=== PATIENT | male | born 1970 | race Caucasian/White ===

== ENCOUNTER 2017-01-01 07:47 | Inpatient (IN) | payer BC ==
[2017-01-01] MEDS ORDERED: DEXTROSE 50%-WATER 25 GM/50 ML DISP.SYRIN ONE (08:12)
--- NOTE | 2017-01-01 08:18 | PDOC ---
History of Present Illness - General Chief Complaint: Blood Sugar Problem Stated Complaint: DIABETIC Time Seen by Provider: 01/01/17 08:07 History Source: Patient, EMS Exam Limitations: No Limitations, Clinical Condition - History of Present Illness Initial Comments: 01/01/17 08:16 Patient is a 46M with a PMH of DM who was found down at a gas station and brought in by EMS. BG was 19. He was administered 1 amp of D50. BG went to 130. In the ED he became diaphoretic again and was found to have a BG of 50. Another amp of D50 given. He states he is lightheaded. Denies CP, SOB, numbness, tingling, weakness. Patient takes 2 types of insulin and did not have breakfast in the morning. He does not remember the last time this has happened. Past History - Past Medical History Allergies/Adverse Reactions: Allergies Allergy/AdvReac Type Severity Reaction Status Date / Time No Known Allergies Allergy Verified 01/01/17 08:06 Home Medications: Ambulatory Orders Insulin Glargine,Hum.rec.anlog [Toujeo Solostar] 30 unit SQ AM 01/01/17 Insulin Lispro Protamin/Lispro [Humalog Mix 50-50 Kwikpen] 0 unit SQ BID Diabetes: Yes - Suicide/Smoking/Psychosocial Hx Smoking History: Never smoked Have you smoked in the past 12 months: No Information on smoking cessation initiated: No Hx Alcohol Use: No Drug/Substance Use Hx: No Substance Use Type: None Hx Substance Use Treatment: No Review of Systems - Review of Systems Able to Perform ROS?: Yes Is the patient limited Chinese proficient: No Constitutional: Yes: Diaphoresis. No: Chills, Fever Respiratory: No: Shortness of Breath Cardiac (ROS): Yes: Lightheadedness. No: Chest Pain ABD/GI: No: Constipated, Diarrhea, Nausea, Vomiting : No: Burning, Dysuria, Discharge Neurological: No: Headache, Numbness, Tingling, Weakness *Physical Exam - Vital Signs Last Vital Signs Temp Pulse Resp BP Pulse Ox 67 18 154/99 100 01/01/17 07:50 01/01/17 07:50 01/01/17 07:50 01/01/17 07:50 - Physical Exam General Appearance: Yes: Nourished, Appropriately Dressed, Other (Initially disoriented, after reassessment he is A&Ox3). No: Apparent Distress HEENT: positive: Normal Voice, Hearing Grossly Normal Respiratory/Chest: positive: Lungs Clear, Normal Breath Sounds. negative: Chest Tender, Accessory Muscle Use, Labored Respiration, Crackles, Rales, Rhonchi, Stridor, Wheezing Cardiovascular: positive: Regular Rhythm, Regular Rate, S1, S2. negative: Diastolic Murmur, Systolic Murmur Gastrointestinal/Abdominal: positive: Flat, Soft. negative: Tender, Distended, Guarding, Rebound, Tenderness Extremity: negative: Pelvis Stable, Swelling, Calf Tenderness Integumentary: positive: Warm, Diaphoresis Neurologic: positive: Fully Oriented, Alert, Normal Mood/Affect, Motor Strength 5/5 Heart Score/ECG Review - ECG Impressions Comment:: 01/01/17 09:01 Rate 67 NSR ED Treatment Course - LABORATORY CBC & Chemistry Diagram: 01/01/17 09:11 01/01/17 09:11 Medical Decision Making - Medical Decision Making 01/01/17 09:02 Patient is a 46M with a PMH of DM who presented to the ED after a hypoglycemic episode. He is currently stable but routine monitoring of his BG will be continued. Septic protocol is being followed secondary to mild hypothermia (93F) . Will reassess when labs return. 01/01/17 10:29 I have spoken with Dr. Pizarro and he recommends ICU admission. I have placed these orders and paged intensivists. 01/01/17 11:30 I have spoken with Dr. Bell, ICU, who states that the patient can also go to a med/surg bed if temp does not return to normal. I will recheck temp at noon and reassess patient. 01/01/17 11:39 Temp recheck is 93.4. *DC/Admit/Observation/Transfer Diagnosis at time of Disposition: Hypoglycemia associated with diabetes - Discharge Dispostion Condition at time of disposition: Stable Admit: Yes - Referrals
--- NOTE | 2017-01-01 08:49 | PDOC ---
Attending Attestation - [facility] HPI: 01/01/17 09:31 The patient is a 46 year old male, with a significant past medical history of insulin dependent diabetes, who presents to the emergency department via ems s/ p syncope this morning. The patient states he woke up at 5am and normally picks up breakfast before work, however, states he was unable to this morning because his car broke down. 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 As per ems, he was given D50 prior to ED arrival. The patient reports not recording his glucose this morning, but feeling very hungry. He states he took 8 units, opposed to his regular 30 units, of his long lasting medication and 12 units of his humalog before leaving his house for work. He states his "sugars last week were between 200 and 500." He denies chest pain, shortness of breath, headache and dizziness. He denies fever, chills, nausea, vomit, diarrhea and constipation. He denies dysuria, frequency, urgency and hematuria. Allergies: NKDA Past surgical history: none reported PCP - Dr. Ramirez - Physicial Exam PE: 01/01/17 09:34 GENERAL: Awake, alert, and fully oriented, in no acute distress HEAD: No signs of trauma EYES: PERRLA, EOMI, sclera anicteric, conjunctiva clear ENT: Auricles normal inspection, hearing grossly normal, nares patent, oropharynx clear without exudates. Moist mucosa NECK: Normal ROM, supple, no lymphadenopathy, JVD, or masses LUNGS: Breath sounds equal, clear to auscultation bilaterally. No wheezes, and no crackles HEART: Regular rate and rhythm, normal S1 and S2, no murmurs, rubs or gallops ABDOMEN: Soft, nontender, normoactive bowel sounds. No guarding, no rebound. No masses EXTREMITIES: Normal range of motion, no edema. No clubbing or cyanosis. No cords , erythema, or tenderness NEUROLOGICAL: Cranial nerves II-XII intact. Normal speech, normal gait. Sensation intact in upper and lower extremities. 5/5 motor strength in upper and lower extremities. No pronator drift. Finger to nose intact. Rapid alternations intact. SKIN: Warm, Dry, normal turgor, no rashes or lesions noted. - Medical Decision Making 01/01/17 09:36 Documentation prepared by Dilcia Schaffer, acting as director biomedical engineering for Antony Adair MD, 01/01/17 10:16 Dr. Pizarro was paged at the office requesting for doctor to doctor consult regarding admission of this patient. Dr. Matias, EM Resident, discussed the patient's case with Dr. Pizarro at 10:26 01/01/17 10:32 Dr. Bell was paged overhead requesting a callback to [phone] <Dilcia Schaffer - Last Filed: 01/01/17 10:32> - Critical Care Time Total Critical Care Time: 30 Critical Care Statement: The care of this patient involved high complexity decision making to prevent further life threatening deterioration of the patient 's condition and/or to evaluate & treat vital organ system(s) failure or risk of failure. - Medical Decision Making 01/01/17 12:02 Documentation prepared by Hallie Lewis, acting as director biomedical engineering for Antony Adair MD. <Hallie Lewis - Last Filed: 01/01/17 12:02> - Resident Resident Name: Sheldon Matias - ED Attending Attestation I have performed the following: I have examined & evaluated the patient, The case was reviewed & discussed with the resident, I agree w/resident's findings & plan, Exceptions are as noted - Medical Decision Making 01/01/17 10:21 Vital Signs Temp Pulse Resp BP Pulse Ox 67 18 154/99 100 01/01/17 07:50 01/01/17 07:50 01/01/17 07:50 01/01/17 07:50 46-year-old male with history of insulin-dependent diabetes presents with hypoglycemia and hypothermia. The patient was going to work and had taken his insulin this morning. Patient states that he had taken 8 units of long-lasting insulin and 12 units of Humalog. He reports that he ate very little and subsequently lost consciousness. EMS was found and noted that he was sweaty and fingerstick of 19. Was given an amp of dextrose and oral glucose. Patient was noted to be hypothermic at 93. He denies any recent illnesses. His last regimen insulin change was 2 weeks ago. Patient's glucose is improved though given hypothermia and hypoglycemia, we'll need to admit the patient for observation. I suspect that the hypothermia is secondary to hypoglycemia, however, will need a sepsis workup. CBC, BMP 01/01/17 09:11 01/01/17 09:11 CMP Sodium 138 mmol/L (136-145) 01/01/17 09:11 Potassium 4.3 mmol/L (3.5-5.1) 01/01/17 09:11 Chloride 104 mmol/L (98-107) 01/01/17 09:11 Carbon Dioxide 29 mmol/L (21-32) 01/01/17 09:11 Anion Gap 5 (8-16) L 01/01/17 09:11 BUN 20 mg/dL (7-18) H 01/01/17 09:11 Creatinine 1.0 mg/dL (0.7-1.3) 01/01/17 09:11 Creat Clearance w eGFR > 60 (>60) 01/01/17 09:11 POC Glucometer 50.17161 UNITS (()) 01/01/17 08:09 Random Glucose 111 mg/dL (74-106) H 01/01/17 09:11 Lactic Acid 1.1 mmol/L (0.4-2.0) 01/01/17 09:11 Calcium 8.5 mg/dL (8.5-10.1) 01/01/17 09:11 Phosphorus 4.2 mg/dL (2.5-4.9) 01/01/17 09:11 Magnesium 2.2 mg/dL (1.8-2.4) 01/01/17 09:11 Total Bilirubin 0.4 mg/dL (0.2-1.0) 01/01/17 09:11 AST 24 U/L (15-37) 01/01/17 09:11 ALT 33 U/L (12-78) 01/01/17 09:11 Alkaline Phosphatase 80 U/L (45-117) 01/01/17 09:11 Creatine Kinase 393 IU/L (39-308) H 01/01/17 09:11 Creatine Kinase Index 3.0 % (0.0-5.0) 01/01/17 09:11 CK-MB (CK-2) 11.955 ng/mL (0.5-3.6) H 01/01/17 09:11 Troponin I < 0.02 ng/ml (0.00-0.05) 01/01/17 09:11 Total Protein 5.7 g/dl (6.4-8.2) L 01/01/17 09:11 Albumin 2.4 g/dl (3.4-5.0) L 01/01/17 09:11 01/01/17 15:05 Pt has no cardiac arrhythmias on ECG. Case discussed with Dr. Vick Mirza. Patient can be admitted to med/surg admission. <Antony Adair - Last Filed: 01/01/17 15:06> Heart Score/ECG Review #1 ECG reviewed & interpreted by me at: 08:00 01/01/17 10:22 NSR 67, no std/nacho, normal axis, normal intervals, QTC 456 msec. No J waves <Antony Adair - Last Filed: 01/01/17 15:06>
[2017-01-01 09:26] LABS: BASOPHIL 0.8 % (0-2.0); EOSINOPHIL 3.5 % (0-4.5); MCH 29.7 pg (25.7-33.7); MCHC 33.4 g/dl (32.0-35.9); MEAN CELL VOLUME 89.1 fl (80-96); MEAN PLT VOLUME 6.6 fl (7.5-11.1); NEUTROPHILS 60.4 % (42.8-82.8); PLATELET COUNT 218 K/MM3 (134-434); RDW 12.7 % (11.9-15.9); WHITE BLOOD COUNT 5.4 K/mm3 (4.0-10.0)
[2017-01-01 09:46] LABS: ALBUMIN 2.4 g/dl (3.4-5.0); ANION GAP 5 (8-16); BILIRUBIN,TOTAL 0.4 mg/dL (0.2-1.0); CALCIUM 8.5 mg/dL (8.5-10.1); CO2 29 mmol/L (21-32); GLUCOSE,RANDOM 111 mg/dL (74-106); MAGNESIUM 2.2 mg/dL (1.8-2.4); PHOSPHOROUS 4.2 mg/dL (2.5-4.9); SGOT/AST 24 U/L (15-37); SGPT/ALT 33 U/L (12-78); TOT PROT 5.7 g/dl (6.4-8.2)
[2017-01-01 09:48] LABS: ALK PHOS 80 U/L (45-117); CPK 393 IU/L (39-308); TROPONIN I < 0.02 ng/ml (0.00-0.05)
--- NOTE | 2017-01-01 10:25 | EKG ---
Test Reason : Blood Pressure : / mmHG Vent. Rate : 067 BPM Atrial Rate : 067 BPM P-R Int : 150 ms QRS Dur : 090 ms QT Int : 432 ms P-R-T Axes : 053 048 046 degrees QTc Int : 456 ms NORMAL SINUS RHYTHM NORMAL ECG WHEN COMPARED WITH ECG OF 25-JUN-2007 00:48, NO SIGNIFICANT CHANGE WAS FOUND Confirmed by DESIRAE AUGUST MD ([id number]) on 01/01/2017 10:25:19 AM Referred By: Confirmed By:DESIRAE AUGUST MD
[2017-01-01 15:16] LABS: URINE APPEARANCE CLEAR; URINE BILIRUBIN NEGATIVE (NEGATIVE); URINE BLOOD 1+ (NEGATIVE); URINE COLOR LTYELLOW; URINE GLUCOSE (UA) 2+ (NEGATIVE); URINE KETONE NEGATIVE (NEGATIVE); URINE LEUK ESTERASE NEGATIVE (NEGATIVE); URINE NITRITE NEGATIVE (NEGATIVE); URINE UROBILINOGEN NEGATIVE mg/dL (0.2-1.0)
[2017-01-01 15:20] LABS: URINE BACTERIA RARE /hpf (NONE SEEN); URINE MUCUS RARE; URINE PROTEIN 2+ (NEGATIVE); URINE RBC 5 /hpf (0-3); URINE WBC 1 /hpf (3-5)
[2017-01-01 16:40] VITALS: BMI 26.4
--- NOTE | 2017-01-01 16:42 | HP ---
Admitting History and Physical - Primary Care Physician PCP: Franklyn Ramirez (Juareziyamarylou) - Admission Chief Complaint: Hypoglycemia History of Present Illness: Mr. Gonsales, a pleasant 46 yo male came in to [facility] ER after he went unconscious at his job due to hypoglycemia. He woke up in AM, took his insulin, humalog and Toujeo, his usual dose, went to his car to get some breakfast before work, realized the car wasn't working. So he took a cab straight to his work because he was running late, instead of getting breakfast. 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 But before he could get breakfast, he went unconscious, 911 was called at the scene and he was brought in to the ER. History Source: Patient Limitations to Obtaining History: No Limitations - Past Medical History Endocrine: Yes: Diabetes Mellitus - Smoking History Smoking history: Never smoked Have you smoked in the past 12 months: No - Alcohol/Substance Use Hx Alcohol Use: No Home Medications - Allergies Allergies/Adverse Reactions: Allergies Allergy/AdvReac Type Severity Reaction Status Date / Time No Known Allergies Allergy Verified 01/01/17 08:06 - Home Medications Home Medications: Ambulatory Orders Insulin Glargine,Hum.rec.anlog [Toujeo Solostar] 30 unit SQ AM 01/01/17 Amlodipine Besylate [Norvasc -] 5 mg PO DAILY #30 tablet 01/03/17 Insulin Sliding Scale [Novolog Vial Sliding Scale -] 1 vial SQ ACHS units 01/03 Lisinopril [Prinivil] 20 mg PO DAILY #30 tablet 01/03/17 Review of Systems - Review of Systems Constitutional: reports: No Symptoms Eyes: reports: No Symptoms HENT: reports: No Symptoms Neck: reports: No Symptoms Cardiovascular: reports: No Symptoms Respiratory: reports: No Symptoms Gastrointestinal: reports: No Symptoms Genitourinary: reports: No Symptoms Breasts: reports: No Symptoms Reported Musculoskeletal: reports: No Symptoms Integumentary: reports: No Symptoms Neurological: reports: Syncope Endocrine: reports: No Symptoms Hematology/Lymphatic: reports: No Symptoms Psychiatric: reports: No Symptoms Pain Intensity: 0 Physical Examination Vital Signs: Vital Signs Temperature 97.5 F L 01/01/17 15:58 Pulse Rate 90 01/01/17 10:30 Respiratory Rate 18 01/01/17 10:30 Blood Pressure 189/119 01/01/17 10:30 O2 Sat by Pulse Oximetry (%) 100 01/01/17 07:50 Constitutional: Yes: Well Nourished, No Distress, Calm Cardiovascular: Yes: Regular Rate and Rhythm Respiratory: Yes: Regular Gastrointestinal: Yes: Normal Bowel Sounds Musculoskeletal: Yes: WNL Extremities: Yes: WNL Edema: No Peripheral Pulses WNL: Yes Neurological: Yes: Alert, Oriented Psychiatric: Yes: Alert, Oriented Problem List - Problems (1) Diabetes mellitus, insulin dependent (IDDM), uncontrolled Assessment/Plan: -labs -check A1c -endocrine consult Code(s): E10.65 - TYPE 1 DIABETES MELLITUS WITH HYPERGLYCEMIA (2) HTN (hypertension) Assessment/Plan: -states he was started on BP medication outpatient but he never took it. Code(s): I10 - ESSENTIAL (PRIMARY) HYPERTENSION (3) Hypoglycemia associated with diabetes Assessment/Plan: uncontrolled DM2 A1C at 13.1 awaiting endocrinology consult Code(s): E11.649 - TYPE 2 DIABETES MELLITUS WITH HYPOGLYCEMIA WITHOUT COMA Assessment/Plan see problem list
[2017-01-01] MEDS ORDERED: FLU VACCINE QUAD 60 MCG/0.5 ML (MDV 17-18) IM ONE (16:57)
[2017-01-01] MEDS: LISINOPRIL 5 MG TABLET (FP) PO SCH (16:58)
[2017-01-01] MEDS: INSULIN SLIDING SCALE (NOVOLOG) 1 VIAL SQ SCH ×2 (18:05→21:20)
[2017-01-01] MEDS ORDERED: METOPROLOL TARTRATE 25 MG TABLET (FP) PO ONE (19:15)
[2017-01-01] MEDS: HEPARIN NA (PORCINE) 5,000 UNITS/ML 1ML VIAL SQ SCH (21:27)
[2017-01-02] MEDS: INSULIN SLIDING SCALE (NOVOLOG) 1 VIAL SQ SCH ×4 (06:07→22:01)
[2017-01-02 07:51] LABS: BASOPHIL 0.7 % (0-2.0); EOSINOPHIL 3.6 % (0-4.5); MCH 30.1 pg (25.7-33.7); MCHC 33.6 g/dl (32.0-35.9); MEAN CELL VOLUME 89.6 fl (80-96); MEAN PLT VOLUME 6.9 fl (7.5-11.1); NEUTROPHILS 65.3 % (42.8-82.8); PLATELET COUNT 239 K/MM3 (134-434); RDW 12.7 % (11.9-15.9); WHITE BLOOD COUNT 6.3 K/mm3 (4.0-10.0)
[2017-01-02 08:49] LABS: ALBUMIN 2.4 g/dl (3.4-5.0); ALK PHOS 87 U/L (45-117); ANION GAP 9 (8-16); BILIRUBIN,TOTAL 0.5 mg/dL (0.2-1.0); CALCIUM 7.9 mg/dL (8.5-10.1); CO2 29 mmol/L (21-32); CREATININE 1.1 mg/dL (0.7-1.3); GLUCOSE,RANDOM 208 mg/dL (74-106); SGOT/AST 23 U/L (15-37); SGPT/ALT 33 U/L (12-78); TOT PROT 5.7 g/dl (6.4-8.2)
[2017-01-02] MEDS: HEPARIN NA (PORCINE) 5,000 UNITS/ML 1ML VIAL SQ SCH ×2 (09:17→22:01)
[2017-01-02] MEDS: LISINOPRIL 5 MG TABLET (FP) PO SCH (09:17)
--- NOTE | 2017-01-02 10:39 | PN ---
Progress Note, Physician Chief Complaint: Hypoglycemia, HTN History of Present Illness: NAD, sitting at the edge of the bed, feeling much better, awaiting endocrinology and cardiology consult. - Current Medication List Current Medications: Active Medications Heparin Sodium (Porcine) (Heparin -) 5,000 unit SQ BID [facility] Last Admin: 01/02/17 09:17 Dose: 5,000 unit Insulin Aspart (Novolog Vial Sliding Scale -) 1 vial SQ ACHS [facility] PRN Reason: Protocol Last Admin: 01/02/17 06:07 Dose: Not Given Lisinopril (Prinivil) 5 mg PO DAILY [facility] Last Admin: 01/02/17 09:17 Dose: 5 mg - Objective Vital Signs: Vital Signs Temperature 97.9 F 01/02/17 09:30 Pulse Rate 80 01/02/17 10:33 Respiratory Rate 18 01/02/17 10:33 Blood Pressure 124/84 01/02/17 10:33 O2 Sat by Pulse Oximetry (%) 98 01/02/17 00:09 Constitutional: Yes: Well Nourished, No Distress, Calm Cardiovascular: Yes: Regular Rate and Rhythm Respiratory: Yes: Regular Gastrointestinal: Yes: Normal Bowel Sounds Musculoskeletal: Yes: WNL Extremities: Yes: WNL Edema: No Peripheral Pulses WNL: Yes Neurological: Yes: Alert, Oriented Psychiatric: Yes: Alert, Oriented Labs: CBC, BMP 01/02/17 06:30 01/02/17 06:30 Problem List - Problems (1) Hypoglycemia associated with diabetes Assessment/Plan: uncontrolled DM2 A1C at 13.1 awaiting endocrinology consult Code(s): E11.649 - TYPE 2 DIABETES MELLITUS WITH HYPOGLYCEMIA WITHOUT COMA (2) HTN (hypertension) Assessment/Plan: -started on Lisinopril 5 mg yesterday, was also given 1 dose of metoprolol 25 mg -BP better today -awaiting cardiology consult Code(s): I10 - ESSENTIAL (PRIMARY) HYPERTENSION (3) Anemia Assessment/Plan: -Could be secondary to DM -iron profile, vit b 12 pending -would treat as per cause -stool OB Code(s): D64.9 - ANEMIA, UNSPECIFIED Assessment/Plan see problem list
[2017-01-02] MEDS ORDERED: INSULIN (NOVOLOG) ASPART 100 UNITS/ML 10ML VIAL ONE (10:58)
[2017-01-02 12:52] LABS: FERRITIN 298.217 ng/ml (16.4-293.9)
--- NOTE | 2017-01-02 14:28 | CONSULT ---
Consult Consult Specialty:: endocrine Referred by:: grant soria np Reason for Consultation:: hypoglycemia/iddm - History of Present Illness Chief Complaint: low sugar not checking sugar before taking insulin passed out History of Present Illness: 46M with a PMH of DM who was found down at a gas station and brought in by EMS. BG was 19. He was administered 1 amp of D50. BG went to 130. In the ED he became diaphoretic again and was found to have a BG of 50. Another amp of D50 given. He states he is lightheaded. Denies CP, SOB, numbness, tingling, weakness. Patient takes 2 types of insulin and did not have breakfast in the morning. He does not remember the last time this has happened. has had last hb a1c 14%,took humalog 14 units and toujeo 12units,yet did not check sugar , passed out and found sugar to be 50mg/dl ambulance brought to er,denies cp sob cough or fever - History Source History Provided By: Patient - Past Medical History Endocrine: Yes: Diabetes Mellitus - Alcohol/Substance Use Hx Alcohol Use: No - Smoking History Smoking history: Never smoked Have you smoked in the past 12 months: No Home Medications - Allergies Allergies/Adverse Reactions: Allergies Allergy/AdvReac Type Severity Reaction Status Date / Time No Known Allergies Allergy Verified 01/01/17 08:06 - Home Medications Home Medications: Ambulatory Orders Insulin Glargine,Hum.rec.anlog [Toujeo Solostar] 30 unit SQ AM 01/01/17 Insulin Lispro Protamin/Lispro [Humalog Mix 50-50 Kwikpen] 0 unit SQ BID Review of Systems - Review of Systems Constitutional: reports: No Symptoms Eyes: reports: No Symptoms HENT: reports: No Symptoms Neck: reports: No Symptoms Cardiovascular: reports: No Symptoms Respiratory: reports: No Symptoms Gastrointestinal: reports: No Symptoms Genitourinary: reports: No Symptoms Breasts: reports: No Symptoms Reported Musculoskeletal: reports: No Symptoms Integumentary: reports: No Symptoms Neurological: reports: Weakness Endocrine: reports: Unexplained Weight Loss Hematology/Lymphatic: reports: No Symptoms Psychiatric: reports: No Symptoms Physical Exam Vital Signs: Vital Signs Temperature 97.9 F 01/02/17 09:30 Pulse Rate 80 01/02/17 10:33 Respiratory Rate 18 01/02/17 10:33 Blood Pressure 124/84 01/02/17 10:33 O2 Sat by Pulse Oximetry (%) 97 01/02/17 08:00 Constitutional: Yes: Calm Eyes: Yes: WNL HENT: Yes: WNL Neck: Yes: WNL Cardiovascular: Yes: WNL Respiratory: Yes: CTA Bilaterally Gastrointestinal: Yes: Normal Bowel Sounds Renal/: Yes: WNL Breast(s): Yes: WNL Labs: CBC, BMP 01/02/17 06:30 01/02/17 06:30 Problem List - Problems (1) HTN (hypertension) Code(s): I10 - ESSENTIAL (PRIMARY) HYPERTENSION (2) Hypoglycemia associated with diabetes Code(s): E11.649 - TYPE 2 DIABETES MELLITUS WITH HYPOGLYCEMIA WITHOUT COMA (3) Diabetes mellitus, insulin dependent (IDDM), uncontrolled Code(s): E10.65 - TYPE 1 DIABETES MELLITUS WITH HYPERGLYCEMIA Assessment/Plan Current Active Problems Anemia (Acute) HTN (hypertension) (Acute) Hypoglycemia associated with diabetes (Acute) Abnormal Lab Results 01/01/17 01/02/17 01/02/17 15:05 06:30 06:30 RBC 3.82 L Hgb 11.5 L Hct 34.2 L MPV 6.9 L BUN 28 H D Random Glucose 208 H D Hemoglobin A1c % Calcium 7.9 L Ferritin Total Protein 5.7 L Albumin 2.4 L Urine Protein 2+ H Urine Glucose (UA) 2+ H Urine Blood 1+ H 01/02/17 01/02/17 06:30 06:30 RBC Hgb Hct MPV BUN Random Glucose Hemoglobin A1c % 13.1 H D Calcium Ferritin 298.217 H Total Protein Albumin Urine Protein Urine Glucose (UA) Urine Blood Laboratory Results - last 24 hr 01/01/17 01/01/17 01/01/17 15:05 17:58 21:19 WBC RBC Hgb Hct MCV MCH MCHC RDW Plt Count MPV Neutrophils % Lymphocytes % Monocytes % Eosinophils % Basophils % Sodium Potassium Chloride Carbon Dioxide Anion Gap BUN Creatinine Creat Clearance w eGFR POC Glucometer 293 316 Random Glucose Hemoglobin A1c % Calcium Ferritin Total Bilirubin AST ALT Alkaline Phosphatase Total Protein Albumin Urine Color Ltyellow Urine Appearance Clear Urine pH 6.0 Ur Specific [place] 1.025 Urine Protein 2+ H Urine Glucose (UA) 2+ H Urine Ketones Negative Urine Blood 1+ H Urine Nitrite Negative Urine Bilirubin Negative Urine Urobilinogen Negative Urine RBC 5 Urine WBC 1 Urine Bacteria Rare Urine Mucus Rare 01/02/17 01/02/17 01/02/17 06:05 06:30 06:30 WBC 6.3 RBC 3.82 L Hgb 11.5 L Hct 34.2 L MCV 89.6 MCH 30.1 MCHC 33.6 RDW 12.7 Plt Count 239 MPV 6.9 L Neutrophils % 65.3 Lymphocytes % 23.7 Monocytes % 6.7 Eosinophils % 3.6 Basophils % 0.7 Sodium 138 Potassium 4.7 Chloride 100 Carbon Dioxide 29 Anion Gap 9 BUN 28 H D Creatinine 1.1 Creat Clearance w eGFR > 60 POC Glucometer 193 Random Glucose 208 H D Hemoglobin A1c % Calcium 7.9 L Ferritin Total Bilirubin 0.5 D AST 23 ALT 33 Alkaline Phosphatase 87 Total Protein 5.7 L Albumin 2.4 L Urine Color Urine Appearance Urine pH Ur Specific [place] Urine Protein Urine Glucose (UA) Urine Ketones Urine Blood Urine Nitrite Urine Bilirubin Urine Urobilinogen Urine RBC Urine WBC Urine Bacteria Urine Mucus 01/02/17 01/02/17 01/02/17 06:30 06:30 10:55 WBC RBC Hgb Hct MCV MCH MCHC RDW Plt Count MPV Neutrophils % Lymphocytes % Monocytes % Eosinophils % Basophils % Sodium Potassium Chloride Carbon Dioxide Anion Gap BUN Creatinine Creat Clearance w eGFR POC Glucometer 235 Random Glucose Hemoglobin A1c % 13.1 H D Calcium Ferritin 298.217 H Total Bilirubin AST ALT Alkaline Phosphatase Total Protein Albumin Urine Color Urine Appearance Urine pH Ur Specific [place] Urine Protein Urine Glucose (UA) Urine Ketones Urine Blood Urine Nitrite Urine Bilirubin Urine Urobilinogen Urine RBC Urine WBC Urine Bacteria Urine Mucus plan: diet nutrition counselling diabetic education class levemir 15 units am novolg sliding scale i disscussed plan with mr agrawal advised him risk and benefit of tight sugar controll,will order free style glucometer to his pharmacy [facility] [address] which will be covered for strips will see as outpatient
--- NOTE | 2017-01-02 15:12 | CON.CARD ---
Consult Consult Specialty:: cardiology Referred by:: Juarez Reason for Consultation:: Syncope - History of Present Illness Chief Complaint: Syncope History of Present Illness: The patient is a 46-year-old man with a history of diabetes, who was found unconscious at a gas station. He was found to have a marked hypoglycemia. As per the patient ate took his regular insulin and planned to get his usual breakfast at work. His commute to work was delayed and so was his meal. The patient denied history of angina. His breathing comfortably. He offers no cardiac complaints. 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: Alzheimer's, CVA, Dementia, Migraine, Multiple Sclerosis, Peripheral Neuropathy, Parkinson's, Seizure, Syncope, TIA, Vertigo, Other Cardio/Vascular: No: AFIB, Aneurysm, Aortic Insufficiency, Aortic Stenosis, CAD , CHF, Deep Vein Thrombosis, HTN, Hyperlipdemia, RI, Mitral Insufficiency, Mitral Stenosis, Murmur, Pulmonary Hypertension, Other Pulmonary: No: Asthma, Bronchitis, Cancer, COPD, O2 Dependent, Pneumonia, Previously Intubated, Pulmonary Embolus, Pulmonary Fibrosis, Sleep Apnea, Other Gastrointestinal: No: Ascites, Cancer, Constipation, Crohn's Disease, Diverticulitis, Diverticulosis, Esophageal Varices, Gastritis, GERD, GI Bleed, Hemorrhoids, Hiatal Hernia, Inflamatory Bowel Disease, Irritable Bowel Disease, Pancreatitis, Peptic Ulcer Disease, Ulcerative Colitis, Other Hepatobiliary: No: Cirrhosis, Cholelithiasis, Cholecystitis, Choledocholithiasis , Hepatitis A, Hepatitis B, Hepatitis C, Other Renal/: No: Renal Failure, Renal Inusuff, BPH, Cancer, Hematuria, Hemodialysis , Neurogenic Bladder, Renal Calculi, UTI, Other Heme/Onc: No: Anemia, B12 Deficiency, Bleeding Disorder, Cancer, Current Chemotherapy, Current Radiation Therapy, Hemochromatosis, Hypercoaguable State, Myeloproliferative Synd, Sickle Cell Disease, Sickle Cell Trait, Thrombocytopenia, Other Infectious Disease: No: AIDS, C-Diff, Herpes Zoster, HIV, MRSA, STD's, Tuberculosis, VREF, Other Psych: No: Addictions, Anxiety, Bipolar, Depression, Panic, Psychosis, Schizophrenia, Other Rheumatology: No: Fibromyalgia, Gout, Lupus, Rheumatoid Arthritis, Sarcoidosis, Vasculitis, Other ENT: No: Allergic Rhinitis, Sinusitis, Other Endocrine: Yes: Diabetes Mellitus - Alcohol/Substance Use Hx Alcohol Use: No - Smoking History Smoking history: Never smoked Have you smoked in the past 12 months: No Home Medications - Allergies Allergies/Adverse Reactions: Allergies Allergy/AdvReac Type Severity Reaction Status Date / Time No Known Allergies Allergy Verified 01/01/17 08:06 - Home Medications Home Medications: Ambulatory Orders Insulin Glargine,Hum.rec.anlog [Toujeo Solostar] 30 unit SQ AM 01/01/17 Insulin Lispro Protamin/Lispro [Humalog Mix 50-50 Kwikpen] 0 unit SQ BID Review of Systems - Review of Systems Constitutional: reports: No Symptoms Eyes: reports: No Symptoms HENT: reports: No Symptoms Neck: reports: No Symptoms Cardiovascular: reports: No Symptoms Respiratory: reports: No Symptoms Gastrointestinal: reports: No Symptoms Genitourinary: reports: No Symptoms Breasts: reports: No Symptoms Reported Musculoskeletal: reports: No Symptoms Integumentary: reports: No Symptoms Neurological: reports: No Symptoms Endocrine: reports: No Symptoms Vital Signs: Vital Signs Temperature 97.5 F L 01/02/17 14:00 Pulse Rate 82 01/02/17 14:00 Respiratory Rate 18 01/02/17 14:00 Blood Pressure 163/108 01/02/17 14:00 O2 Sat by Pulse Oximetry (%) 97 01/02/17 08:00 Constitutional: Yes: Well Nourished, No Distress, Calm Eyes: Yes: WNL HENT: Yes: WNL, Atraumatic, Normocephalic Neck: Yes: WNL, Supple, Trachea Midline Respiratory: Yes: WNL, Regular, CTA Bilaterally Gastrointestinal: Yes: WNL, Normal Bowel Sounds, Soft Renal/: Yes: WNL Cardiovascular: Yes: WNL, Regular Rate and Rhythm JVD: No Carotid Bruit: No PMI: Non-Displaced Heart Sounds: Yes: S1, S2 Musculoskeletal: Yes: WNL Extremities: Yes: WNL Edema: No Peripheral Pulses WNL: Yes - Other Data Labs, Other Data: CBC, BMP 01/02/17 06:30 01/02/17 06:30 Assessment/Plan 46-year-old man admitted with syncope in the setting of marked hypoglycemia. There is no evidence of ischemia nor acute coronary syndrome. No cardiac symptoms. The patient is in sinus rhythm. No acute ECG changes. No CHF. Vital signs are stable. There is no need for further cardiac workup at this point. Continue home regimen. No active cardiac issues. Please do not hesitate to call us PRN
[2017-01-02] MEDS ORDERED: LISINOPRIL 5 MG TABLET (FP) PO ONE (17:35)
[2017-01-03] MEDS ORDERED: INSULIN DETEMIR 100 UNITS/ML MDV SQ SCH (07:00)
[2017-01-03 08:07] LABS: SERUM IRON 50 ug/dL (38-169); TOTAL IRON BINDING CAPACITY 252 ug/dL (250-450); UIBC 202 ug/dL (111-343)
--- NOTE | 2017-01-03 08:46 | DS ---
Physical Examination Vital Signs: Vital Signs Temperature 97.9 F 01/03/17 06:00 Pulse Rate 88 01/03/17 06:00 Respiratory Rate 20 01/03/17 06:00 Blood Pressure 176/109 01/03/17 06:00 O2 Sat by Pulse Oximetry (%) 97 01/02/17 08:00 Cardiovascular: Yes: Regular Rate and Rhythm Respiratory: Yes: Regular, CTA Bilaterally Gastrointestinal: Yes: Normal Bowel Sounds, Soft Labs: CBC, BMP 01/02/17 06:30 01/02/17 06:30 Discharge Summary Reason For Visit: HYPOGLYCEMIA ASSOCIATED WITH DM Current Active Problems Anemia (Acute) Diabetes mellitus, insulin dependent (IDDM), uncontrolled (Acute) HTN (hypertension) (Acute) Hypoglycemia associated with diabetes (Acute) Hospital Course: - Problems (1) Hypoglycemia associated with diabetes Assessment/Plan: uncontrolled DM2 A1C at 13.1 endocrinology consult iNSULIN Code(s): E11.649 - TYPE 2 DIABETES MELLITUS WITH HYPOGLYCEMIA WITHOUT COMA (2) HTN (hypertension) Assessment/Plan: -started on Lisinopril 5 mg yesterday--INCREASE TO 20 --NORVASC 5 MG -BP - cardiology consult Code(s): I10 - ESSENTIAL (PRIMARY) HYPERTENSION (3) Anemia Assessment/Plan: -Could be secondary to DM -iron profile, vit b 12 pending -would treat as per cause -stool OB Code(s): D64.9 - ANEMIA, UNSPECIFIED Condition: Stable - Instructions Diet, Activity, Other Instructions: edison--15 units daily and adjust per dr verma Referrals: Zack Pham [Primary Care Provider] - 1 Week Disposition: HOME - Home Medications Comprehensive Discharge Medication List: Ambulatory Orders Insulin Glargine,Hum.rec.anlog [Toujeo Solostar] 30 unit SQ AM 01/01/17 Amlodipine Besylate [Norvasc -] 5 mg PO DAILY #30 tablet 01/03/17 Insulin Sliding Scale [Novolog Vial Sliding Scale -] 1 vial SQ ACHS units 01/03 Lisinopril [Prinivil] 20 mg PO DAILY #30 tablet 01/03/17
[2017-01-03] MEDS ORDERED: INSULIN (NOVOLOG) ASPART 100 UNITS/ML 10ML VIAL ONE (08:53)
[2017-01-03] MEDS: INSULIN SLIDING SCALE (NOVOLOG) 1 VIAL SQ SCH ×3 (08:59→17:10)
[2017-01-03] MEDS: HEPARIN NA (PORCINE) 5,000 UNITS/ML 1ML VIAL SQ SCH (09:05)
[2017-01-03] MEDS ORDERED: amLODIPine BESYLATE 10 MG TABLET (FP) PO SCH (10:00)
[2017-01-03] MEDS ORDERED: LISINOPRIL 10 MG TABLET (FP) PO SCH (10:00)
[2017-01-03] MEDS ORDERED: amLODIPine BESYLATE 5 MG TABLET (FP) PO SCH (10:00)
[2017-01-03] MEDS ORDERED: RAMIPRIL 2.5 MG CAPSULE (FP) PO SCH (10:00)
[2017-01-03] MEDS ORDERED: LISINOPRIL 20 MG TABLET (FP) PO SCH (10:00)
[2017-01-03 14:10] LABS: CREATININE RANDOM URINE 47.2 mg/dL (Not Estab.)
[2017-01-03 17:32] VITALS: BP 144/97; PULSE 85; TEMP 99
[2017-01-04 06:37] LABS: HEP B SURFACE AB Non Reactive (.)
== END 2017-01-03 18:30 | disposition home or self-care (01) | DRG 639 ==
LOC: JER 07:47 → INTOOBSV 10:30 → JERBED 10:30 → UNDOADMOB 10:30 → JERBED 15:54 → J8W 15:54 → JERBED 16:37 → OBSVTOIN 16:38
PROVIDERS: ADMIT Family Medicine; ATTEND Family Medicine
DX: E11.649 Type 2 diabetes mellitus with hypoglycemia without coma (principal); I10 Essential (primary) hypertension; D64.9 Anemia, unspecified; Z79.4 Long term (current) use of insulin; R55 Syncope and collapse
CPT/HCPCS: 36415; 80053; 81003; 81015; 82043; 82553; 82570; 82607; 82728; 83036; 83540; 83550; 83605; 83735; 84100; 84484; 85025; 86704; 86706; 86803; 87040; 87086; 90688; 93005; 93010; 99283-25; G0008; G0378; J1644

== ENCOUNTER 2017-08-17 15:38 | Emergency (ER) | payer BC ==
--- NOTE | 2017-08-17 16:02 | PDOC ---
Rapid Medical Evaluation Time Seen by Provider: 08/17/17 15:59 Medical Evaluation: Allergies Allergy/AdvReac Type Severity Reaction Status Date / Time No Known Allergies Allergy Verified 01/01/17 08:06 I have performed a brief in-person evaluation of this patient. The patient presents with a chief complaint of: slipped at work and landed on left rib 5 days ago. has pain today. worse with movement, palpation and deep breaths Pertinent physical exam findings: pain with palpation of left anterior and side ribs, T8-T12 I have ordered the following: left rib xray The patient will proceed to the ED for further evaluation.
[2017-08-17 16:24] VITALS: BP 148/92; PULSE 89; TEMP 99.1; BMI 25.0
[2017-08-17] MEDS ORDERED: IBUPROFEN 600 MG TABLET (FP) PO ONE ×2 (17:38)
--- NOTE | 2017-08-17 17:38 | PDOC ---
History of Present Illness - General Chief Complaint: Injury Stated Complaint: SLIP/FALL, LT SIDE PAIN Time Seen by Provider: 08/17/17 15:59 History Source: Patient Exam Limitations: No Limitations - History of Present Illness Initial Comments: 08/17/17 17:35 47-year-old male with past medical history of IDDM who presents emergency Department with left rib pain status post fall off his pickup truck on 08/13. 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 He states progressively over the past 4 days the pain is increasedrestricting his range of motion. He denies shortness of breath. Past History - Past Medical History Allergies/Adverse Reactions: Allergies Allergy/AdvReac Type Severity Reaction Status Date / Time No Known Allergies Allergy Verified 08/17/17 15:59 Home Medications: Ambulatory Orders Insulin Glargine,Hum.rec.anlog [Toujeo Solostar] 30 unit SQ AM 01/01/17 Amlodipine Besylate [Norvasc -] 5 mg PO DAILY #30 tablet 01/03/17 Insulin Sliding Scale [Novolog Vial Sliding Scale -] 1 vial SQ ACHS units 01/03 Lisinopril [Prinivil] 20 mg PO DAILY #30 tablet 01/03/17 Anemia: No Asthma: No Cancer: No Cardiac Disorders: No CVA: No COPD: No CHF: No Dementia: No Diabetes: Yes GI Disorders: No Disorders: No HTN: No Hypercholesterolemia: No Liver Disease: No Seizures: No Thyroid Disease: No - Suicide/Smoking/Psychosocial Hx Smoking History: Never smoked Have you smoked in the past 12 months: No Hx Alcohol Use: No Drug/Substance Use Hx: No Substance Use Type: None Hx Substance Use Treatment: No Review of Systems - Review of Systems Able to Perform ROS?: Yes Is the patient limited Portuguese proficient: No Constitutional: No: Symptoms Reported HEENTM: No: Symptoms Reported Respiratory: No: Symptoms reported Cardiac (ROS): No: Symptoms Reported ABD/GI: No: Symptoms Reported : No: Symptoms Reported Musculoskeletal: Yes: See HPI Integumentary: No: Symptoms Reported Neurological: No: Symptoms reported *Physical Exam - Vital Signs Last Vital Signs Temp Pulse Resp BP Pulse Ox 99.1 F 89 19 148/92 96 08/17/17 15:59 08/17/17 15:59 08/17/17 15:59 08/17/17 15:59 08/17/17 15:59 - Physical Exam General Appearance: Yes: Appropriately Dressed. No: Apparent Distress HEENT: positive: Normal ENT Inspection Neck: positive: Trachea midline, Supple Respiratory/Chest: positive: Chest Tender (over left lateral ribs #7&8), Lungs Clear, Normal Breath Sounds. negative: Respiratory Distress, Accessory Muscle Use Cardiovascular: positive: Regular Rhythm. negative: Regular Rate, Murmur Gastrointestinal/Abdominal: positive: Normal Bowel Sounds, Soft. negative: Tender Musculoskeletal: positive: Normal Inspection. negative: CVA Tenderness Extremity: positive: Normal Capillary Refill, Normal Inspection Integumentary: positive: Normal Color, Dry, Warm Neurologic: positive: Alert, Normal Response Medical Decision Making - Medical Decision Making 08/17/17 17:36 A/P: 47-year-old male with left rib pain status post slip and fall onto his tailgate. Respirations even and unlabored. Lungs clear to auscultation bilaterally. Left lateral ribs tender at rib #7 and 8. No flail chest noted No ecchymosis noted Left rib series Motrin 600 mg Reassess 08/17/17 17:37 Chest x-rays read by Dr. Redmond: No acute cardiopulmonary disease is present. No gross left rib fractures identified. I discussed the physical exam findings, ancillary test results and final diagnoses with the patient. I answered all of the patient's questions. The patient was satisfied with the care received and felt comfortable with the discharge plan and treatment plan. The patient will call his doctor within 96 hours to arrange follow-up and will return to the Emergency Department with any new, persistent or worsening symptoms. *DC/Admit/Observation/Transfer Diagnosis at time of Disposition: Contusion of rib on left side Qualifiers: Encounter type: initial encounter Qualified Code(s): S20.212A - Contusion of left front wall of thorax, initial encounter - Discharge Dispostion Disposition: HOME Condition at time of disposition: Stable Decision to Admit order: No - Referrals - Patient Instructions Printed Discharge Instructions: DI for Rib Contusion Additional Instructions: Return to emergency department for any concerns. - Post Discharge Activity Forms/Work/School Notes: Back to Work
== END 2017-08-17 17:45 | disposition home or self-care (01) ==
LOC: JERFT 15:38 → JER 15:38 → JERFT 17:45
DX: S20.212A Contusion of left front wall of thorax, initial encounter (principal); V59.88XA Occupant (driver) (passenger) of pick-up truck or van injured in other specified transport accidents, initial encounter; Y92.488 Other paved roadways as the place of occurrence of the external cause; Y93.H3 Activity, building and construction; Y99.0 Civilian activity done for income or pay; E11.9 Type 2 diabetes mellitus without complications; Z79.4 Long term (current) use of insulin
CPT/HCPCS: 71101-TC-FY; 99281-25

== ENCOUNTER 2017-10-17 23:26 | Emergency (ER) | payer BC ==
[2017-10-17 23:34] VITALS: BP 182/116; PULSE 95; TEMP 98; BMI 22.7
--- NOTE | 2017-10-18 02:59 | PDOC ---
History of Present Illness <Janeen Huston - Last Filed: 10/18/17 03:27> - General History Source: Patient Exam Limitations: No Limitations - History of Present Illness Initial Comments: 10/18/17 05:05 The patient is a 47 year old male with a significant past medical history of diabetes who presents to the ED for evaluation of laceration. The patient reports a left index finger laceration after jet skiing on Thursday. Pt reports trying to take care of the laceration himself by wrapping it up with a bandage. The patient notes it improved the next day, but is worse today. Today, pt notes left index finger swelling with mild pain, which prompted him to visit the ED for further evaluation. Of note, pt is unsure of date of last tetanus shot. The patient denies chest pain, shortness of breath, headache, nausea, vomiting, fever, chills, diarrhea, constipation, and urinary symptoms. Allergies: NKDA Social History: No reported alcohol, cigarette, or drug use. <Chelsie Hardin - Last Filed: 10/18/17 05:06> - General Chief Complaint: Injury Stated Complaint: FINGER INJURY Time Seen by Provider: 10/18/17 01:06 Past History - Past Medical History Anemia: No Asthma: No Cancer: No Cardiac Disorders: No CVA: No COPD: No CHF: No Dementia: No Diabetes: Yes GI Disorders: No Disorders: No HTN: No Hypercholesterolemia: No Liver Disease: No Seizures: No Thyroid Disease: No - Immunization History Immunization Up to Date: Yes - Suicide/Smoking/Psychosocial Hx Smoking History: Never smoked Have you smoked in the past 12 months: No Information on smoking cessation initiated: No Hx Alcohol Use: No Drug/Substance Use Hx: No Substance Use Type: None Hx Substance Use Treatment: No <Janeen Huston - Last Filed: 10/18/17 03:27> <Chelsie Hardin - Last Filed: 10/18/17 05:06> - Past Medical History Allergies/Adverse Reactions: Allergies Allergy/AdvReac Type Severity Reaction Status Date / Time No Known Allergies Allergy Verified 10/17/17 23:34 Home Medications: Ambulatory Orders Insulin Glargine,Hum.rec.anlog [Shraddha Estevez] 30 unit SQ AM 01/01/17 Amlodipine Besylate [Norvasc -] 5 mg PO DAILY #30 tablet 01/03/17 Insulin Sliding Scale [Novolog Vial Sliding Scale -] 1 vial SQ ACHS units 01/03 Lisinopril [Prinivil] 20 mg PO DAILY #30 tablet 01/03/17 Review of Systems - Review of Systems Able to Perform ROS?: Yes Comments:: GENERAL/CONSTITUTIONAL: No fever or chills. No weakness. HEAD, EYES, EARS, NOSE AND THROAT: No change in vision. No ear pain or discharge. No sore throat. CARDIOVASCULAR: No chest pain or shortness of breath. RESPIRATORY: No cough, wheezing, or hemoptysis. GASTROINTESTINAL: No nausea, vomiting, diarrhea or constipation. GENITOURINARY: No dysuria, frequency, or change in urination. MUSCULOSKELETAL: (+)Left index finger laceration. No neck or back pain. SKIN: No rash NEUROLOGIC: No headache, vertigo, loss of consciousness, or change in strength/ sensation. ENDOCRINE: No increased thirst. No abnormal weight change. HEMATOLOGIC/LYMPHATIC: No anemia, easy bleeding, or history of blood clots. ALLERGIC/IMMUNOLOGIC: No hives or skin allergy. <Chelsie Hardin - Last Filed: 10/18/17 05:06> *Physical Exam - Vital Signs Last Vital Signs Temp Pulse Resp BP Pulse Ox 98.0 F 95 H 16 182/116 98 10/17/17 23:31 10/17/17 23:31 10/17/17 23:31 10/17/17 23:31 10/17/17 23:31 <Janeen Huston - Last Filed: 10/18/17 03:27> - Vital Signs Last Vital Signs Temp Pulse Resp BP Pulse Ox 98.0 F 95 H 16 182/116 98 10/17/17 23:31 10/17/17 23:31 10/17/17 23:31 10/17/17 23:31 10/17/17 23:31 <Chelsie Hardin - Last Filed: 10/18/17 05:06> Medical Decision Making - Medical Decision Making 10/18/17 03:27 Pt eloped after medical student saw him. I didn't get a chance to eval pt. I called him at home and he states that he drove home parked 3 blocks away walked home, he is tired and wants to get sleep before coming back in. I explained to hims that as a diabetic he's at risk for losing his finger. I expalined that I wanted to treat with vanco and unasyn. States that he will try to come in the AM. <Janeen Huston - Last Filed: 10/18/17 03:27> *DC/Admit/Observation/Transfer <Janeen Huston - Last Filed: 10/18/17 03:27> - Attestations Scribe Attestion: Documentation prepared by Chelsie Hardin, acting as medical claims assistant for Janeen Huston MD. <Chelsie Hardin - Last Filed: 10/18/17 05:06> Diagnosis at time of Disposition: Injury - Discharge Dispostion Disposition: ELOPED
[2017-10-18] MEDS ORDERED: AMPICILLIN NA/SULBACTAM NA 1.5 GM in SODIUM CHLORIDE 100 ML IVPB ONE (03:00)
[2017-10-18] MEDS ORDERED: VANCOMYCIN 1,000 MG in DEXTROSE 5%-WATER - 250 ML IVPB ONE (03:04)
[2017-10-18] MEDS ORDERED: VANCOMYCIN 1 GRAM (PRE-DOCKED) 1,000 MG/250 ML BAG IVPB ONE (03:06)
== END 2017-10-18 03:20 | disposition left against medical advice (07) ==
LOC: JER 23:26
DX: S61.211A Laceration without foreign body of left index finger without damage to nail, initial encounter (principal); W45.8XXA Other foreign body or object entering through skin, initial encounter; Y93.19 Activity, other involving water and watercraft; Y92.89 Other specified places as the place of occurrence of the external cause; Y99.8 Other external cause status; E11.9 Type 2 diabetes mellitus without complications; Z79.4 Long term (current) use of insulin
CPT/HCPCS: 99281-25

== ENCOUNTER 2019-01-06 20:28 | Inpatient (IN) | payer BC, OTHER ==
[2019-01-06] MEDS ORDERED: SODIUM CHLORIDE 1,000 ML IV ONE (20:42)
[2019-01-06] MEDS ORDERED: ONDANSETRON 4 MG/2 ML VIAL IVPB ONE (20:42)
--- NOTE | 2019-01-06 20:54 | PDOC ---
Documentation entered by Lucina Parekh SCRIBE, acting as scribe for Amena Lopez MD. Amena Lopez MD: This documentation has been prepared by the Iglesia harrison Xhesika, SCRIBE, under my direction and personally reviewed by me in its entirety. I confirm that the documentation accurately reflects all work, treatment, procedures, and medical decision making performed by me. History of Present Illness - General Chief Complaint: Nausea/Vomiting Stated Complaint: NAUSEA/VOMITING History Source: Patient Exam Limitations: No Limitations - History of Present Illness Initial Comments: 01/06/19 20:46 The patient is a 48 year old male, with a significant PMH of DM who presents to the emergency department with 5 days of nausea and vomiting associated with generalized weakness and epigastric pain. Patient states he is unable to tolerate liquid or food intake. Patient notes he checked his blood sugar 2 days ago and it was elevated. Patient notes his last BM was 45 minutes prior to arrival. Patient denies sick contact, fevers, chills, or cough. PAST SURGICAL HISTORY: no significant history FAMILY HISTORY: no pertinent history SOCIAL HISTORY: Pt lives with family and is employed. MEDICATIONS: reviewed ALLERGIES: As per nursing notes 01/06/19 20:52 Assessment and plan: This is a 48-year-old insulin-dependent diabetic who comes in complaining of nausea and vomiting 5 days. Patient said he tested his sugar 2 days ago and it was high. Workup initiated including CBC, comp, it EKG, lab and upright abdomen, lipase, lactic acid. Patient appeared to be clinically dry so well hydrate with fluids and get a fingerstick blood sugar. 01/06/19 22:04 Patient's potassium is 5.3 and his renal function has declined significantly since October of this year. In October his creatinine was 1.8 in the rain of 33. His B UN is 48 and his creatinine is 3.7. Given patient's vomiting 5 days some of this is prerenal however patient will be admitted for dehydration and hyperkalemia. Most likely also has diabetic gastroparesis Past History - Past Medical History Allergies/Adverse Reactions: Allergies Allergy/AdvReac Type Severity Reaction Status Date / Time No Known Allergies Allergy Verified 10/18/17 11:19 Home Medications: Ambulatory Orders Atorvastatin Ca [Lipitor] 10 mg PO HS #30 tablet MDD 1 10/22/17 Lancets [Lancets Thin] 1 each ACHS #120 each MDD 4 10/22/17 Amlodipine Besylate 5 mg PO DAILY 01/06/19 Insulin Glargine,Hum.rec.anlog [Basaglar Kwikpen U-100] 100 unit SQ ASDIR Lisinopril/Hydrochlorothiazide [Lisinopril-Hctz 20-12.5 mg Tab] 1 each PO DAILY 01/06/19 Anemia: No Asthma: No Cancer: No Cardiac Disorders: No CVA: No COPD: No CHF: No Dementia: No Diabetes: Yes GI Disorders: No Disorders: No HTN: No Hypercholesterolemia: No Liver Disease: No Seizures: No Thyroid Disease: No - Immunization History Immunization Up to Date: Yes - Psycho Social/Smoking Cessation Hx Smoking History: Never smoked Have you smoked in the past 12 months: No Hx Alcohol Use: Yes (occasional) Drug/Substance Use Hx: No Substance Use Type: None Hx Substance Use Treatment: No Review of Systems - Review of Systems Able to Perform ROS?: Yes Comments:: 01/06/19 20:47 General: No fevers or chills, no weakness, no weight loss. (+) generalized weakness. HEENT: No change in vision. No sore throat,. No ear pain CardioVascular: No chest pain or shortness of breath Respiratory:No cough, or wheezing. Gastrointestinal:(+) epigastric pain. (+) nausea, vomiting. No diarrhea or constipation, No rectal bleeding Genitourinary: No dysuria, hematuria, or frequency Musculoskeletal: No joint or muscle pain or swelling. (+) L plantar foot puncture wound. Neurologic: No headache, vertigo, dizziness or loss of consciousness Psychiatric: nor depression Skin: No rashes or easy bruising Endocrine: no increased thirst or abnormal weight change Allergic: no skin or latex allergy All other systems reviewed and normal *Physical Exam - Vital Signs Last Vital Signs Temp Pulse Resp BP Pulse Ox 98.2 F 83 16 139/89 100 01/06/19 20:35 01/06/19 20:35 01/06/19 20:35 01/06/19 20:35 01/06/19 20:35 - Physical Exam Comments: 01/06/19 20:48 General: Well-nourished well-developed individual, no acute distress HEENT: Throat: Normal, tonsils normal, no erythema or exudate. (+) dry mucous membranes. Neck: Supple, no meningeal signs, no lymphadenopathy Eyes::Pupils equal reactive and round, extraocular motion intact Chest: Nontender to palpation Cardiac: S1-S2 normal, regular rate and rhythm, no murmurs rubs or gallops Respiratory: (+) mild expiratory wheezing diffusely Abdomen: Soft, nondistended, normal bowel sounds, nontender to palpation diffusely Extremities: Warm, dry, no cyanosis, clubbing, or edema Skin: No rashes Neuro: Alert and oriented x3, nonfocal exam, grossly intact, normal gait Psych: Normal mood and affect ED Treatment Course - LABORATORY CBC & Chemistry Diagram: 01/06/19 20:50 01/06/19 20:50 - RADIOLOGY Radiology Studies Ordered: Category Date Time Status ABDOMEN FLAT & UPRIGHT [RAD] Stat Radiology 01/06/19 20:42 Ordered Discharge - Discharge Information Problems reviewed: Yes Clinical Impression/Diagnosis: Hyperkalemia, Gastroparesis due to DM, Chronic renal insufficiency Condition: Stable - Admission Yes - Follow up/Referral Referrals: Irineo Hutchison MD [Primary Care Provider] - - Patient Discharge Instructions - Post Discharge Activity
[2019-01-06] MEDS ORDERED: ONDANSETRON 4 MG/2 ML VIAL ONE (21:01)
[2019-01-06 21:07] LABS: BASO % 0.7 % (0-2.0); EOS % 3.4 % (0-4.5); HEMATOCRIT 31.6 % (35.4-49); HEMOGLOBIN 10.5 GM/dl (11.7-16.9); LYMPH % 17.5 % (8-40); MCH 30.1 pg (25.7-33.7); MCHC 33.3 g/dl (32.0-35.9); MEAN CELL VOLUME 90.3 fl (80-96); MEAN PLT VOLUME 7.2 fl (7.5-11.1); MONO % 5.4 % (3.8-10.2); PLATELET COUNT 275 K/MM3 (134-434); RBC 3.49 M/mm3 (4.00-5.60); RDW 11.5 % (11.9-15.9); WHITE BLOOD COUNT 7.9 K/mm3 (4.0-10.8)
[2019-01-06 21:18] LABS: ALBUMIN 2.8 g/dl (3.4-5.0); BILIRUBIN,TOTAL 0.5 mg/dl (0.2-1); CALCIUM 8.2 mg/dl (8.5-10); CREATININE 3.7 mg/dl (0.55-1.3); TOT PROT 6.5 g/dl (6.4-8.2)
[2019-01-06 21:27] LABS: POTASSIUM 5.3 mmol/L (3.5-5.1)
--- NOTE | 2019-01-06 22:44 | HP ---
CHIEF COMPLAINT: Nausea, vomiting PCP: Dr. Irineo Hutchison ` HISTORY OF PRESENT ILLNESS: 48 year-old male with a PMH significant for HTN and Type II IDDM since 2007 with multiple surgeries for diabetic retinopathy. Presented to the ED with nausea and vomiting 5 days. Patient reported feeling weak with loss of appetite. Denied fever, sweats, chills. 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 Smoking: never Alcohol: occasional beer Drugs: denies Family history: Father alive Type II DM; Mother alive Type II DM; 5 siblings, 3 children all a&w Allergies No Known Allergies Allergy (Verified 10/18/17 11:19) HOME MEDICATIONS: Home Medications Medication Instructions Recorded Atorvastatin Ca [Lipitor] 10 mg PO HS #30 tablet MDD 1 10/22/17 Lancets [Lancets Thin] 1 each ACHS #120 each MDD 4 10/22/17 Amlodipine Besylate 5 mg PO DAILY 01/06/19 Insulin Glargine,Hum.rec.anlog 100 unit SQ ASDIR 01/06/19 [Basaglar Kwikpen U-100] Lisinopril/Hydrochlorothiazide 1 each PO DAILY 01/06/19 [Lisinopril-Hctz 20-12.5 mg Tab] REVIEW OF SYSTEMS CONSTITUTIONAL: +loss of appetite, weakness Absent: fever, chills, diaphoresis, weight change HEENT: Absent: rhinorrhea, nasal congestion, throat pain, throat swelling, difficulty swallowing, mouth swelling, ear pain, eye pain, visual changes CARDIOVASCULAR: Absent: chest pain, syncope, palpitations, irregular heart rate, lightheadedness , peripheral edema RESPIRATORY: Absent: cough, shortness of breath, dyspnea with exertion, orthopnea, wheezing, stridor, hemoptysis GASTROINTESTINAL: +nausea, vomiting Absent: abdominal pain, abdominal distension, nausea, vomiting, diarrhea, constipation, melena, hematochezia GENITOURINARY: Absent: dysuria, frequency, urgency, hesitancy, hematuria, flank pain, genital pain MUSCULOSKELETAL: Absent: myalgia, arthralgia, joint swelling, back pain, neck pain SKIN: Absent: rash, itching, pallor HEMATOLOGIC/IMMUNOLOGIC: Absent: easy bleeding, easy bruising, lymphadenopathy, frequent infections ENDOCRINE: Absent: unexplained weight gain, unexplained weight loss, heat intolerance, cold intolerance NEUROLOGIC: Absent: headache, focal weakness or paresthesias, dizziness, unsteady gait, seizure, mental status changes, bladder or bowel incontinence PSYCHIATRIC: Absent: anxiety, depression, suicidal or homicidal ideation, hallucinations. PHYSICAL EXAMINATION Vital Signs - 24 hr 01/06/19 20:35 Temperature 98.2 F Pulse Rate 83 Respiratory 16 Rate Blood Pressure 139/89 O2 Sat by Pulse 100 Oximetry (%) GENERAL: Awake, alert, and fully oriented, in no acute distress. HEAD: Normal with no signs of trauma. EYES: Pupils equal, round and reactive to light, extraocular movements intact, sclera anicteric, conjunctiva clear. No lid lag. LUNGS: Breath sounds equal, clear to auscultation bilaterally. No wheezes, and no crackles. No accessory muscle use. HEART: Regular rate and rhythm, normal S1 and S2 without murmur, rub or gallop. ABDOMEN: Soft, nontender, not distended, MUSCULOSKELETAL: Normal range of motion at all joints. No bony deformities or tenderness. No CVA tenderness. UPPER EXTREMITIES: 2+ pulses, warm, well-perfused. No cyanosis. No clubbing. No peripheral edema. LOWER EXTREMITIES: 2+ pulses, warm, well-perfused. No calf tenderness. No peripheral edema. Extensive scarring both legs, skin dry but intact NEUROLOGICAL: Cranial nerves II-XII intact. Normal speech. Laboratory Results - last 24 hr 01/06/19 01/06/19 01/06/19 20:50 20:50 20:50 WBC 7.9 RBC 3.49 L Hgb 10.5 L Hct 31.6 L D MCV 90.3 MCH 30.1 MCHC 33.3 RDW 11.5 L Plt Count 275 D MPV 7.2 L Absolute Neuts (auto) 5.7 Neutrophils % 73.0 D Lymphocytes % 17.5 D Monocytes % 5.4 Eosinophils % 3.4 Basophils % 0.7 Sodium 139 Potassium 5.3 H Chloride 107 Carbon Dioxide 28 Anion Gap 4 L BUN 48.0 H Creatinine 3.7 H Est GFR (CKD-EPI)AfAm 21.41 Est GFR (CKD-EPI)NonAf 18.48 POC Glucometer Random Glucose 207 H Lactic Acid 0.8 Calcium 8.2 L Total Bilirubin 0.5 AST 11 L ALT 14 Alkaline Phosphatase 85 Total Protein 6.5 Albumin 2.8 L Lipase 01/06/19 01/06/19 20:50 20:59 WBC RBC Hgb Hct MCV MCH MCHC RDW Plt Count MPV Absolute Neuts (auto) Neutrophils % Lymphocytes % Monocytes % Eosinophils % Basophils % Sodium Potassium Chloride Carbon Dioxide Anion Gap BUN Creatinine Est GFR (CKD-EPI)AfAm Est GFR (CKD-EPI)NonAf POC Glucometer 206 Random Glucose Lactic Acid Calcium Total Bilirubin AST ALT Alkaline Phosphatase Total Protein Albumin Lipase 55 L ASSESSMENT/PLAN: 48 year-old male with a PMH significant for Type II IDDM and hypertension. Admitted for JAIRO, hyperkalemia, dehydration. Acute on chronic kidney injury --Cr 3.7 on admission, last two admissions baseline 1.7 --urine studies --IV fluids --US kidneys --renal consult Hypertension --hold lisinopril and HCTZ due to JAIRO --monitor BP closely, will add different anti-hypertensive if indicated Type II IDDM Diabetic retinopathy --Novolog sliding scale coverage FEN Fluids: NS@50mL/hr Electrolytes: replete as indicated Nutrition: diabetic, low sodium DVT prophylaxis: subq heparin Dispo: continues to require inpatient care. Full code. Visit type - Emergency Visit Emergency Visit: Yes ED Registration Date: 01/06/19 Care time: The patient presented to the Emergency Department on the above date and was hospitalized for further evaluation of their emergent condition. - New Patient This patient is new to me today: Yes Date on this admission: 01/08/19 - Critical Care Critical Care patient: No
[2019-01-06] MEDS ORDERED: ONDANSETRON 4 MG/2 ML VIAL IVPUSH PRN (23:04)
[2019-01-06] MEDS ORDERED: SODIUM CHLORIDE 1,000 ML IV SCH (23:15)
[2019-01-07] MEDS ORDERED: SODIUM CHLORIDE 1,000 ML IV SCH (00:39)
[2019-01-07] MEDS ORDERED: hydrALAZINE HCL 50 MG TABLET (FP) PO ONE (01:05)
[2019-01-07] MEDS: INSULIN SLIDING SCALE (NOVOLOG) 1 VIAL SQ SCH ×4 (06:35→21:42)
[2019-01-07] MEDS: HEPARIN NA (PORCINE) 5,000 UNITS/ML 1ML VIAL SQ SCH ×3 (06:36→21:42)
[2019-01-07 07:33] LABS: BASO % 0.6 % (0-2.0); EOS % 3.5 % (0-4.5); HEMATOCRIT 28.2 % (35.4-49); HEMOGLOBIN 9.4 GM/dl (11.7-16.9); LYMPH % 28.1 % (8-40); MCH 30.5 pg (25.7-33.7); MCHC 33.5 g/dl (32.0-35.9); MEAN CELL VOLUME 90.8 fl (80-96); MEAN PLT VOLUME 7.7 fl (7.5-11.1); MONO % 5.3 % (3.8-10.2); NEUT % 62.5 % (42.8-82.8); PLATELET COUNT 234 K/MM3 (134-434); RDW 11.6 % (11.9-15.9); WHITE BLOOD COUNT 7.5 K/mm3 (4.0-10.8)
[2019-01-07 07:47] LABS: ALBUMIN 2.4 g/dl (3.4-5.0); BILIRUBIN,TOTAL 0.5 mg/dl (0.2-1); CALCIUM 7.7 mg/dl (8.5-10); CREATININE 3.6 mg/dl (0.55-1.3); MAGNESIUM 2.2 mg/dL (1.8-2.4); PHOSPHOROUS 4.1 mg/dl (2.5-4.9); TOT PROT 5.8 g/dl (6.4-8.2)
[2019-01-07 08:47] LABS: EPITHELIAL CELLS FEW /hpf
[2019-01-07 08:48] LABS: URINE SPERM FEW
[2019-01-07] MEDS: amLODIPine BESYLATE 5 MG TABLET (FP) PO SCH (09:48)
--- NOTE | 2019-01-07 12:42 | CONSULT ---
Consult Consult Specialty:: Nephrology Reason for Consultation:: CKD - History of Present Illness Chief Complaint: nausea and vomiting History of Present Illness: Pt is a 48 year old male with pmhx of ckd, htn and DM who presents to the ER with nausea and vomiting for the last five days. He was found to have worsening renal function and I was called to evaluate him. He has history of CKD but has not followed up with me as outpt. He says there was a period of time where he did not have insurance. He says that he has been compliant with his meds recently. He denies nsaid use. He complains of nausea from amlodipine. - History Source History Provided By: Patient, Medical Record - Past Medical History Cardio/Vascular: Yes: HTN, Hyperlipdemia Renal/: Yes: Renal Inusuff Endocrine: Yes: Diabetes Mellitus (x 10 years ) - Alcohol/Substance Use Hx Alcohol Use: No (occasional) History of Substance Use: reports: None - Smoking History Smoking history: Never smoked Have you smoked in the past 12 months: No - Social History Usual Living Arrangement: Alone ADL: Independent Occupation: [employer] History of Recent Travel: No Home Medications - Allergies Allergies/Adverse Reactions: Allergies Allergy/AdvReac Type Severity Reaction Status Date / Time No Known Allergies Allergy Verified 10/18/17 11:19 - Home Medications Home Medications: Ambulatory Orders Atorvastatin Ca [Lipitor] 10 mg PO HS #30 tablet MDD 1 10/22/17 Lancets [Lancets Thin] 1 each ACHS #120 each MDD 4 10/22/17 Amlodipine Besylate 5 mg PO DAILY 01/06/19 Insulin Glargine,Hum.rec.anlog [Basaglar Johnathanikpen U-100] 100 unit SQ ASDIR Lisinopril/Hydrochlorothiazide [Lisinopril-Hctz 20-12.5 mg Tab] 1 each PO DAILY 01/06/19 Family Medical History Family History: Denies Review of Systems - Review of Systems Constitutional: reports: Malaise Eyes: reports: No Symptoms HENT: reports: No Symptoms Neck: reports: No Symptoms Cardiovascular: reports: No Symptoms Respiratory: reports: No Symptoms Gastrointestinal: reports: Nausea, Vomiting Genitourinary: reports: No Symptoms Musculoskeletal: reports: No Symptoms Integumentary: reports: No Symptoms Neurological: reports: No Symptoms Endocrine: reports: No Symptoms Hematology/Lymphatic: reports: No Symptoms Psychiatric: reports: No Symptoms Physical Exam Vital Signs: Vital Signs Temperature 98.1 F 01/07/19 09:46 Pulse Rate 83 01/07/19 09:46 Respiratory Rate 18 01/07/19 09:46 Blood Pressure 150/85 01/07/19 09:46 O2 Sat by Pulse Oximetry (%) 97 01/07/19 08:58 Constitutional: Yes: Calm Eyes: Yes: Conjunctiva Clear HENT: Yes: Atraumatic Neck: Yes: Supple Cardiovascular: Yes: S1, S2 Respiratory: Yes: CTA Bilaterally Gastrointestinal: Yes: Soft Renal/: Yes: WNL Musculoskeletal: Yes: WNL Edema: Yes Edema: LLE: Trace, RLE: Trace Neurological: Yes: Oriented Psychiatric: Yes: Oriented Labs: CBC, BMP 01/07/19 07:15 01/07/19 07:15 Laboratory Tests 10/19/17 10/20/17 10/21/17 07:30 07:30 06:00 Hgb Creatinine 1.7 H 1.7 H 1.8 H Urine Protein 01/06/19 01/06/19 01/07/19 20:50 20:50 07:15 Hgb 10.5 L 9.4 L Creatinine 3.7 H Urine Protein 01/07/19 01/07/19 07:15 07:57 Hgb Creatinine 3.6 H Urine Protein 3+ H Imaging - Results X-ray: Report Reviewed Ultrasound: Report Reviewed Problem List - Problems (1) Chronic renal insufficiency Code(s): N18.9 - CHRONIC KIDNEY DISEASE, UNSPECIFIED (2) Gastroparesis due to DM Code(s): E11.43 - TYPE 2 DIABETES W DIABETIC AUTONOMIC (POLY)NEUROPATHY; K31.84 - GASTROPARESIS Assessment/Plan Current Medications Generic Name Dose Route Start Last Admin Trade Name Freq PRN Reason Stop Dose Admin Amlodipine Besylate 5 mg 01/07/19 10:00 01/07/19 09:48 Norvasc - PO 5 mg DAILY ELOISA Administration Atorvastatin Calcium 10 mg 01/07/19 22:00 Lipitor - PO HS ELOISA Heparin Sodium (Porcine) 5,000 unit 01/07/19 06:00 01/07/19 06:36 Heparin - SQ 5,000 unit TID ELOISA Administration Sodium Chloride 1,000 mls @ 50 mls/hr 01/07/19 00:39 01/07/19 01:03 Normal Saline - IV 50 mls/hr ASDIR ELOISA Administration Insulin Aspart 1 vial 01/07/19 07:00 01/07/19 11:55 Novolog Vial Sliding Scale - SQ 6 units ACHS ELOISA Administration Protocol Ondansetron HCl 4 mg 01/06/19 23:04 Zofran Injection IVPUSH Q6H PRN NAUSEA Impression 1. CKD with acute component 2. DM 3. HTN 4. proteinuria 5. microscopic hematuria 6. nausea and vomiting Plan - pt feels that amlodipine is causing nausea, can hold - saeed and diuretic on hold for toy - monitor renal function - renal ultrasound reviewed - pt started on beta karen, discussed with medical team - can add hydralazine - check a1c
--- NOTE | 2019-01-07 13:55 | EKG ---
Test Reason : Blood Pressure : / mmHG Vent. Rate : 086 BPM Atrial Rate : 086 BPM P-R Int : 134 ms QRS Dur : 082 ms QT Int : 388 ms P-R-T Axes : 057 045 067 degrees QTc Int : 464 ms NORMAL SINUS RHYTHM POSSIBLE LEFT ATRIAL ENLARGEMENT NONSPECIFIC ST ABNORMALITY WHEN COMPARED WITH ECG OF 18-OCT-2017 12:09, NO SIGNIFICANT CHANGE WAS FOUND Confirmed by BUTCH SHARMA MD ([id number]) on 01/07/2019 1:55:00 PM Referred By: DR DOWNS Confirmed By:BUTCH SHARMA MD
[2019-01-07] MEDS ORDERED: METOPROLOL TARTRATE 5 MG/5 ML VIAL IVPUSH ONE (14:30)
[2019-01-07] MEDS ORDERED: METOPROLOL TARTRATE 25 MG TABLET (FP) PO ONE (14:30)
[2019-01-07] MEDS: ATORVASTATIN CA 10 MG TABLET (FP) PO SCH (21:42)
--- NOTE | 2019-01-07 23:41 | PN ---
Physical Exam: SUBJECTIVE: Patient seen and examined OBJECTIVE: Vital Signs Period Temp Pulse Resp BP Sys/Morris Pulse Ox Last 24 Hr 97.5 F-98.2 F 77-88 16-18 116-200/63-122 97-99 GENERAL: Awake, alert, and fully oriented, in no acute distress. LUNGS: Breath sounds equal, clear to auscultation bilaterally. No wheezes, and no crackles. No accessory muscle use. HEART: Regular rate and rhythm, normal S1 and S2 without murmur, rub or gallop. ABDOMEN: Soft, nontender, not distended, UPPER EXTREMITIES: 2+ pulses, warm, well-perfused. No cyanosis. No clubbing. No peripheral edema. LOWER EXTREMITIES: 2+ pulses, warm, well-perfused. No calf tenderness. No peripheral edema. Extensive scarring both legs, skin dry but intact NEUROLOGICAL: Cranial nerves II-XII intact. Normal speech. Laboratory Results - last 24 hr 01/07/19 01/07/19 01/07/19 00:59 06:34 07:15 WBC 7.5 RBC 3.10 L Hgb 9.4 L Hct 28.2 L MCV 90.8 MCH 30.5 MCHC 33.5 RDW 11.6 L Plt Count 234 MPV 7.7 Absolute Neuts (auto) 4.7 Neutrophils % 62.5 Lymphocytes % 28.1 D Monocytes % 5.3 Eosinophils % 3.5 Basophils % 0.6 Sodium Potassium Chloride Carbon Dioxide Anion Gap BUN Creatinine Est GFR (CKD-EPI)AfAm Est GFR (CKD-EPI)NonAf POC Glucometer 175 191 Random Glucose Calcium Phosphorus Magnesium Total Bilirubin AST ALT Alkaline Phosphatase Total Protein Albumin Urine Color Urine Appearance Urine pH Urine Protein Urine Glucose (UA) Urine Ketones Urine Blood Urine Nitrite Urine Bilirubin Urine Urobilinogen Ur Leukocyte Esterase Urine RBC Urine WBC Ur Transition Epith Cell Ur Random Creatinine Ur Random Sodium 01/07/19 01/07/19 01/07/19 07:15 07:57 07:57 WBC RBC Hgb Hct MCV MCH MCHC RDW Plt Count MPV Absolute Neuts (auto) Neutrophils % Lymphocytes % Monocytes % Eosinophils % Basophils % Sodium 139 Potassium 5.0 Chloride 108 H Carbon Dioxide 27 Anion Gap 4 L BUN 46.0 H Creatinine 3.6 H Est GFR (CKD-EPI)AfAm 22.14 Est GFR (CKD-EPI)NonAf 19.10 POC Glucometer Random Glucose 218 H Calcium 7.7 L Phosphorus 4.1 Magnesium 2.2 Total Bilirubin 0.5 AST 11 L ALT 13 Alkaline Phosphatase 70 D Total Protein 5.8 L Albumin 2.4 L Urine Color Urine Appearance Urine pH Urine Protein Urine Glucose (UA) Urine Ketones Urine Blood Urine Nitrite Urine Bilirubin Urine Urobilinogen Ur Leukocyte Esterase Urine RBC Urine WBC Ur Transition Epith Cell Ur Random Creatinine 130.3 Ur Random Sodium 57 01/07/19 01/07/19 01/07/19 07:57 11:14 16:46 WBC RBC Hgb Hct MCV MCH MCHC RDW Plt Count MPV Absolute Neuts (auto) Neutrophils % Lymphocytes % Monocytes % Eosinophils % Basophils % Sodium Potassium Chloride Carbon Dioxide Anion Gap BUN Creatinine Est GFR (CKD-EPI)AfAm Est GFR (CKD-EPI)NonAf POC Glucometer 258 111 Random Glucose Calcium Phosphorus Magnesium Total Bilirubin AST ALT Alkaline Phosphatase Total Protein Albumin Urine Color Yellow Urine Appearance Clear Urine pH 5.5 Urine Protein 3+ H Urine Glucose (UA) 2+ Urine Ketones Negative Urine Blood Trace-intact Urine Nitrite Negative Urine Bilirubin Negative Urine Urobilinogen 0.2 Ur Leukocyte Esterase Negative Urine RBC 2-5 Urine WBC 0-2 Ur Transition Epith Cell Few Ur Random Creatinine Ur Random Sodium 01/07/19 21:30 WBC RBC Hgb Hct MCV MCH MCHC RDW Plt Count MPV Absolute Neuts (auto) Neutrophils % Lymphocytes % Monocytes % Eosinophils % Basophils % Sodium Potassium Chloride Carbon Dioxide Anion Gap BUN Creatinine Est GFR (CKD-EPI)AfAm Est GFR (CKD-EPI)NonAf POC Glucometer 211 Random Glucose Calcium Phosphorus Magnesium Total Bilirubin AST ALT Alkaline Phosphatase Total Protein Albumin Urine Color Urine Appearance Urine pH Urine Protein Urine Glucose (UA) Urine Ketones Urine Blood Urine Nitrite Urine Bilirubin Urine Urobilinogen Ur Leukocyte Esterase Urine RBC Urine WBC Ur Transition Epith Cell Ur Random Creatinine Ur Random Sodium Active Medications Generic Name Dose Route Start Last Admin Trade Name Freq PRN Reason Stop Dose Admin Amlodipine Besylate 5 mg 01/07/19 10:00 01/07/19 09:48 Norvasc - PO 5 mg DAILY ELOISA Administration Atorvastatin Calcium 10 mg 01/07/19 22:00 01/07/19 21:42 Lipitor - PO 10 mg HS ELOISA Administration Heparin Sodium (Porcine) 5,000 unit 01/07/19 06:00 01/07/19 21:42 Heparin - SQ 5,000 unit TID ELOISA Administration Insulin Aspart 1 vial 01/07/19 07:00 01/07/19 21:42 Novolog Vial Sliding Scale - SQ 4 units ACHS ELOISA Administration Protocol Ondansetron HCl 4 mg 01/06/19 23:04 Zofran Injection IVPUSH Q6H PRN NAUSEA ASSESSMENT/PLAN: 48 year-old male with a PMH significant for Type II IDDM and hypertension. Admitted for JAIRO, mild hyperkalemia, dehydration. Acute on chronic kidney injury --Cr 3.7 on admission, today 3.6, last two admissions baseline 1.7 --FeNa 1.1% intrinsic --stop IV fluids due to HTN --US kidneys/bladder: unremarkable --renal following Hypertension --hold lisinopril and HCTZ due to JAIRO --start metoprolol Type II IDDM Diabetic retinopathy --Novolog sliding scale coverage FEN Fluids: PO intake adequate Electrolytes: replete as indicated Nutrition: diabetic, low sodium DVT prophylaxis: subq heparin Dispo: continues to require inpatient care. Full code. Visit type - Emergency Visit Emergency Visit: Yes ED Registration Date: 01/06/19 Care time: The patient presented to the Emergency Department on the above date and was hospitalized for further evaluation of their emergent condition. - New Patient This patient is new to me today: No - Critical Care Critical Care patient: No
[2019-01-08] MEDS: HEPARIN NA (PORCINE) 5,000 UNITS/ML 1ML VIAL SQ SCH ×3 (06:32→21:02)
[2019-01-08] MEDS: INSULIN SLIDING SCALE (NOVOLOG) 1 VIAL SQ SCH ×4 (07:50→21:03)
[2019-01-08 08:56] LABS: ALBUMIN 2.3 g/dl (3.4-5.0); BILIRUBIN,TOTAL 0.6 mg/dl (0.2-1); CALCIUM 7.6 mg/dl (8.5-10); CREATININE 3.4 mg/dl (0.55-1.3); POTASSIUM 4.9 mmol/L (3.5-5.1); TOT PROT 5.2 g/dl (6.4-8.2)
--- NOTE | 2019-01-08 09:03 | PN ---
Progress Note, Physician Chief Complaint: No new complaints History of Present Illness: 48 year old male, with a significant PMH of T2DM , HTN, CKD stage 3 last noted Creat 1.8 10/2017who presents to the emergency department with 5 days of nausea and vomiting associated with generalized weakness and epigastric pain. - Current Medication List Current Medications: Active Medications Amlodipine Besylate (Norvasc -) 5 mg PO DAILY [facility] Last Admin: 01/07/19 09:48 Dose: 5 mg Atorvastatin Calcium (Lipitor -) 10 mg PO HS ELOISA Last Admin: 01/07/19 21:42 Dose: 10 mg Heparin Sodium (Porcine) (Heparin -) 5,000 unit SQ TID [facility] Last Admin: 01/08/19 06:32 Dose: 5,000 unit Insulin Aspart (Novolog Vial Sliding Scale -) 1 vial SQ ACHS [facility]; Protocol Last Admin: 01/08/19 07:50 Dose: 2 units Metoprolol Succinate (Toprol Xl -) 25 mg PO DAILY [facility] Ondansetron HCl (Zofran Injection) 4 mg IVPUSH Q6H PRN PRN Reason: NAUSEA - Objective Vital Signs: Vital Signs Temperature 97.9 F 01/08/19 08:47 Pulse Rate 84 01/08/19 08:47 Respiratory Rate 18 01/08/19 08:47 Blood Pressure 153/82 01/08/19 08:47 O2 Sat by Pulse Oximetry (%) 97 01/08/19 08:47 Young man not in distress HEENT: Mm moist, no anemia, PERRLA EOMI NECK: No JVD No Bruit CHEST: CTA B/L CVS: S1S2 R no m/g/r ABD: No distention, non tender Bs + EXT: Trace edema feet, pulses + [employer]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 Labs: CBC, BMP 01/07/19 07:15 Problem List - Problems (1) Acute kidney injury superimposed on CKD Assessment/Plan: Base line GFR creat 1.8 admitted with worsening renal function, due to uncontrolled DM F/U renal recommendations and IV Hydration Code(s): N17.9 - ACUTE KIDNEY FAILURE, UNSPECIFIED; N18.9 - CHRONIC KIDNEY DISEASE, UNSPECIFIED (2) Acute gastritis Assessment/Plan: Improving on current management Code(s): K29.00 - ACUTE GASTRITIS WITHOUT BLEEDING (3) Gastroparesis due to DM Assessment/Plan: optimize glycemic control Code(s): E11.43 - TYPE 2 DIABETES W DIABETIC AUTONOMIC (POLY)NEUROPATHY; K31.84 - GASTROPARESIS (4) Hyperkalemia Assessment/Plan: Due to JAIRO Problems reviewed: Yes Code(s): E87.5 - HYPERKALEMIA (5) Uncontrolled diabetes mellitus Assessment/Plan: Optimize Glycemic control as per accu checks F/U HbA!C Code(s): E11.65 - TYPE 2 DIABETES MELLITUS WITH HYPERGLYCEMIA (6) Uncontrolled hypertension Assessment/Plan: Due to non complince now better controlled Code(s): I10 - ESSENTIAL (PRIMARY) HYPERTENSION (7) Anemia Assessment/Plan: H/H are stable Code(s): D64.9 - ANEMIA, UNSPECIFIED Qualifiers: Anemia type: due to chronic kidney disease
[2019-01-08] MEDS: amLODIPine BESYLATE 5 MG TABLET (FP) PO SCH (09:12)
[2019-01-08] MEDS: metoPROLOL SUCCINATE 25 MG TAB.SR.24H (FP) PO SCH (09:12)
[2019-01-08 15:56] VITALS: BMI 23.9
--- NOTE | 2019-01-08 17:03 | PN ---
Progress Note (short form) - Note Progress Note: covering dr norris Problems 1. CKD with acute component 2. DM 3. HTN 4. proteinuria 5. microscopic hematuria 6. nausea and vomiting Active Medications Amlodipine Besylate (Norvasc -) 5 mg PO DAILY [facility] Last Admin: 01/08/19 09:12 Dose: 5 mg Atorvastatin Calcium (Lipitor -) 10 mg PO HS [facility] Last Admin: 01/07/19 21:42 Dose: 10 mg Heparin Sodium (Porcine) (Heparin -) 5,000 unit SQ TID [facility] Last Admin: 01/08/19 13:02 Dose: 5,000 unit Insulin Aspart (Novolog Vial Sliding Scale -) 1 vial SQ ACHS [facility]; Protocol Last Admin: 01/08/19 16:36 Dose: 8 units Metoprolol Succinate (Toprol Xl -) 25 mg PO DAILY [facility] Last Admin: 01/08/19 09:12 Dose: 25 mg Ondansetron HCl (Zofran Injection) 4 mg IVPUSH Q6H PRN PRN Reason: NAUSEA Vital Signs Temperature 98.4 F 01/08/19 14:00 Pulse Rate 75 01/08/19 14:00 Respiratory Rate 17 01/08/19 14:00 Blood Pressure 131/72 01/08/19 14:00 O2 Sat by Pulse Oximetry (%) 96 01/08/19 14:00 CBC, BMP 01/07/19 07:15 01/08/19 07:45 01/06/19 01/07/19 20:50 07:15 Creatinine 3.7 H 3.6 H IMP- JAIRO on chronic improving Plan- f/u labs in am continue current mgmt
[2019-01-08] MEDS: ATORVASTATIN CA 10 MG TABLET (FP) PO SCH (21:04)
[2019-01-09] MEDS: INSULIN SLIDING SCALE (NOVOLOG) 1 VIAL SQ SCH ×4 (06:28→21:17)
[2019-01-09] MEDS: HEPARIN NA (PORCINE) 5,000 UNITS/ML 1ML VIAL SQ SCH ×2 (06:32→13:35)
--- NOTE | 2019-01-09 08:51 | PN ---
Physical Exam: SUBJECTIVE: Patient seen and examined OBJECTIVE: Vital Signs Period Temp Pulse Resp BP Sys/Morris Pulse Ox Last 24 Hr 97.8 F-98.5 F 71-79 16-18 125-165/72-96 96-98 GENERAL: The patient is awake, alert, and fully oriented, in no acute distress. HEAD: Normal with no signs of trauma. EYES: PERRL, extraocular movements intact, sclera anicteric, conjunctiva clear. No ptosis. ENT: Ears normal, nares patent, oropharynx clear without exudates, moist mucous membranes. NECK: Trachea midline, full range of motion, supple. LUNGS: Breath sounds equal, clear to auscultation bilaterally, no wheezes, no crackles, no accessory muscle use. HEART: Regular rate and rhythm, S1, S2 ABDOMEN: Soft, nontender, nondistended, normoactive bowel sounds, no guarding, no rebound, no hepatosplenomegaly, no masses. EXTREMITIES: 2+ pulses, warm, well-perfused, no edema. NEUROLOGICAL: Cranial nerves II through XII grossly intact. Normal speech PSYCH: Normal mood, normal affect. SKIN: Warm, dry, normal turgor, no rashes or lesions noted Laboratory Results - last 24 hr 01/08/19 01/08/19 01/08/19 07:45 07:45 11:06 Sodium 135 L Potassium 4.9 Chloride 106 Carbon Dioxide 23 Anion Gap 6 L BUN 47.0 H Creatinine 3.4 H Est GFR (CKD-EPI)AfAm 23.72 Est GFR (CKD-EPI)NonAf 20.46 POC Glucometer 187 Random Glucose 201 H Hemoglobin A1c % 9.4 H Calcium 7.6 L Total Bilirubin 0.6 AST 12 L ALT 11 L Alkaline Phosphatase 71 Total Protein 5.2 L Albumin 2.3 L 01/08/19 01/08/19 01/09/19 16:32 20:45 06:26 Sodium Potassium Chloride Carbon Dioxide Anion Gap BUN Creatinine Est GFR (CKD-EPI)AfAm Est GFR (CKD-EPI)NonAf POC Glucometer 308 195 214 Random Glucose Hemoglobin A1c % Calcium Total Bilirubin AST ALT Alkaline Phosphatase Total Protein Albumin Active Medications Generic Name Dose Route Start Last Admin Trade Name Freq PRN Reason Stop Dose Admin Amlodipine Besylate 5 mg 01/07/19 10:00 01/08/19 09:12 Norvasc - PO 5 mg DAILY ELOISA Administration Atorvastatin Calcium 10 mg 01/07/19 22:00 01/08/19 21:04 Lipitor - PO 10 mg HS ELOISA Administration Heparin Sodium (Porcine) 5,000 unit 01/07/19 06:00 01/09/19 06:32 Heparin - SQ 5,000 unit TID ELOISA Administration Insulin Aspart 1 vial 01/07/19 07:00 01/09/19 06:28 Novolog Vial Sliding Scale - SQ 4 units ACHS ELOISA Administration Protocol Metoprolol Succinate 25 mg 01/08/19 10:00 01/08/19 09:12 Toprol Xl - PO 25 mg DAILY ELOISA Administration Ondansetron HCl 4 mg 01/06/19 23:04 Zofran Injection IVPUSH Q6H PRN NAUSEA ASSESSMENT/PLAN: 48 year-old male with a PMH significant for Type II IDDM and hypertension. Admitted for JAIRO, mild hyperkalemia, dehydration. Acute on chronic kidney injury --Cr 3.7 on admission, today 3.5, last two admissions baseline 1.7 --FeNa 1.1% intrinsic --stop IV fluids due to HTN --US kidneys/bladder: unremarkable --renal following-Dr. Dang -r/o blood in GI tract (could account for high K and dropping H/H) -Other factors beta blockers and component of hypoaldo --Stool Occult order- pt denies dark colored stools Hyperkalemia -5.5 was 4.9 yesterday -30gm Kayexalate -CMP in AM Hypertension --hold lisinopril and HCTZ due to JAIRO --start metoprolol Type II IDDM Diabetic retinopathy --Novolog sliding scale coverage FEN Fluids: PO intake adequate Electrolytes: replete as indicated Nutrition: diabetic, low sodium DVT prophylaxis: subq heparin Dispo: continues to require inpatient care. Full code. Visit type - Emergency Visit Emergency Visit: Yes ED Registration Date: 01/06/19 Care time: The patient presented to the Emergency Department on the above date and was hospitalized for further evaluation of their emergent condition. - New Patient This patient is new to me today: Yes Date on this admission: 01/09/19 - Critical Care Critical Care patient: No - Discharge Referral Referred to [facility] Med [facility] No
[2019-01-09 08:52] LABS: BASO % 0.5 % (0-2.0); EOS % 4.4 % (0-4.5); HEMATOCRIT 26.4 % (35.4-49); HEMOGLOBIN 8.6 GM/dl (11.7-16.9); LYMPH % 31.3 % (8-40); MCH 29.2 pg (25.7-33.7); MCHC 32.6 g/dl (32.0-35.9); MEAN CELL VOLUME 89.6 fl (80-96); MONO % 6.2 % (3.8-10.2); NEUT % 57.6 % (42.8-82.8); PLATELET COUNT 224 K/MM3 (134-434); RBC 2.95 M/mm3 (4.00-5.60); RDW 11.3 % (11.9-15.9); WHITE BLOOD COUNT 5.7 K/mm3 (4.0-10.8)
[2019-01-09 08:55] LABS: CALCIUM 7.7 mg/dl (8.5-10); CREATININE 3.5 mg/dl (0.55-1.3); POTASSIUM 5.5 mmol/L (3.5-5.1)
[2019-01-09] MEDS: amLODIPine BESYLATE 5 MG TABLET (FP) PO SCH (09:53)
[2019-01-09] MEDS: metoPROLOL SUCCINATE 25 MG TAB.SR.24H (FP) PO SCH (09:53)
--- NOTE | 2019-01-09 14:21 | PN ---
Progress Note (short form) - Note Progress Note: covering dr norris Problems 1. CKD with acute component 2. DM 3. HTN 4. proteinuria 5. microscopic hematuria 6. nausea and vomiting Active Medications Amlodipine Besylate (Norvasc -) 5 mg PO DAILY [facility] Last Admin: 01/08/19 09:12 Dose: 5 mg Atorvastatin Calcium (Lipitor -) 10 mg PO HS [facility] Last Admin: 01/07/19 21:42 Dose: 10 mg Heparin Sodium (Porcine) (Heparin -) 5,000 unit SQ TID [facility] Last Admin: 01/08/19 13:02 Dose: 5,000 unit Insulin Aspart (Novolog Vial Sliding Scale -) 1 vial SQ ACHS [facility]; Protocol Last Admin: 01/08/19 16:36 Dose: 8 units Metoprolol Succinate (Toprol Xl -) 25 mg PO DAILY [facility] Last Admin: 01/08/19 09:12 Dose: 25 mg Ondansetron HCl (Zofran Injection) 4 mg IVPUSH Q6H PRN PRN Reason: NAUSEA Last Vital Signs Temp Pulse Resp BP Pulse Ox 98.0 F 68 17 124/66 100 01/09/19 14:00 01/09/19 14:00 01/09/19 14:00 01/09/19 14:00 01/09/19 14:00 CBC, BMP 01/09/19 06:00 01/09/19 06:00 CBC, BMP 01/07/19 07:15 01/08/19 07:45 01/06/19 01/07/19 20:50 07:15 Creatinine 3.7 H 3.6 H IMP- JAIRO on chronic renal is stable recurrent hyperkalemia /renal insufficiency worsening anemia *r/o blood in GI tract (could account for high K and dropping H/H) Other factors beta blockers and component of hypoaldo heparin is also a possibility contributing factor absence of met acidosis noted Plan- stool occult blood kayexalate d/c heparin sq
[2019-01-09] MEDS ORDERED: SODIUM POLYSTYRENE SULFONATE 15 GM/60 ML BOTTLE PO ONE (14:32)
[2019-01-09] MEDS: ATORVASTATIN CA 10 MG TABLET (FP) PO SCH (21:17)
--- NOTE | 2019-01-10 06:22 | PN ---
Physical Exam: SUBJECTIVE: Patient seen and examined oob to chair. Depressed at just being turned down for disability benefits. OBJECTIVE: Vital Signs Period Temp Pulse Resp BP Sys/Morris Pulse Ox Last 24 Hr 97.8 F-98.0 F 68-81 17-18 124-166/66-93 97-100 GENERAL: Awake, alert, and fully oriented, in no acute distress. LUNGS: Breath sounds equal, clear to auscultation bilaterally. No wheezes, and no crackles. No accessory muscle use. HEART: Regular rate and rhythm, normal S1 and S2 without murmur, rub or gallop. ABDOMEN: Soft, nontender, not distended, UPPER EXTREMITIES: 2+ pulses, warm, well-perfused. No cyanosis. No clubbing. No peripheral edema. LOWER EXTREMITIES: 2+ pulses, warm, well-perfused. No calf tenderness. No peripheral edema. Extensive scarring both legs, skin dry but intact NEUROLOGICAL: Cranial nerves II-XII intact. Normal speech. Laboratory Results - last 24 hr 01/09/19 01/09/19 01/09/19 06:00 06:00 06:26 WBC 5.7 RBC 2.95 L Hgb 8.6 L Hct 26.4 L MCV 89.6 MCH 29.2 MCHC 32.6 RDW 11.3 L Plt Count 224 MPV 8.0 Absolute Neuts (auto) 3.3 Neutrophils % 57.6 Lymphocytes % 31.3 Monocytes % 6.2 Eosinophils % 4.4 Basophils % 0.5 Sodium 135 L Potassium 5.5 H Chloride 103 Carbon Dioxide 25 Anion Gap 7 L BUN 53.0 H Creatinine 3.5 H Est GFR (CKD-EPI)AfAm 22.90 Est GFR (CKD-EPI)NonAf 19.76 POC Glucometer 214 Random Glucose 216 H Calcium 7.7 L Stool Occult Blood 01/09/19 01/09/19 01/09/19 11:32 14:30 16:48 WBC RBC Hgb Hct MCV MCH MCHC RDW Plt Count MPV Absolute Neuts (auto) Neutrophils % Lymphocytes % Monocytes % Eosinophils % Basophils % Sodium Potassium Chloride Carbon Dioxide Anion Gap BUN Creatinine Est GFR (CKD-EPI)AfAm Est GFR (CKD-EPI)NonAf POC Glucometer 171 196 Random Glucose Calcium Stool Occult Blood Negative 01/09/19 21:11 WBC RBC Hgb Hct MCV MCH MCHC RDW Plt Count MPV Absolute Neuts (auto) Neutrophils % Lymphocytes % Monocytes % Eosinophils % Basophils % Sodium Potassium Chloride Carbon Dioxide Anion Gap BUN Creatinine Est GFR (CKD-EPI)AfAm Est GFR (CKD-EPI)NonAf POC Glucometer 210 Random Glucose Calcium Stool Occult Blood Current Medications Generic Name Dose Route Start Last Admin Trade Name Freq PRN Reason Stop Dose Admin Amlodipine Besylate 5 mg 01/07/19 10:00 01/10/19 10:21 Norvasc - PO 5 mg DAILY ELOISA Administration Atorvastatin Calcium 10 mg 01/07/19 22:00 01/09/19 21:17 Lipitor - PO 10 mg HS ELOISA Administration Insulin Aspart 1 vial 01/07/19 07:00 01/10/19 11:50 Novolog Vial Sliding Scale - SQ 2 units ACHS ELOISA Administration Protocol Insulin Detemir 12 units 01/10/19 22:00 Levemir Vial SQ HS ELOISA Metoprolol Succinate 25 mg 01/10/19 10:00 01/10/19 10:21 Toprol Xl - PO 25 mg BID ELOISA Administration Ondansetron HCl 4 mg 01/06/19 23:04 Zofran Injection IVPUSH Q6H PRN NAUSEA ASSESSMENT/PLAN: 48 year-old male with a PMH significant for Type II IDDM and hypertension. Admitted for JAIRO, mild hyperkalemia, dehydration. Acute on chronic kidney injury --Cr 3.7 on admission and has remained at that level, per renal this may be progression of kidney disease; will need more extensive renal workup after discharge --stop IV fluids per renal --US kidneys/bladder: unremarkable --renal following Hypertension --hold lisinopril and HCTZ due to JAIRO --increase Toprol XL to BID, continue amlodipine Type II IDDM Diabetic retinopathy --Novolog sliding scale coverage --start Levemir 12U daily FEN Fluids: PO intake adequate Electrolytes: replete as indicated Nutrition: diabetic, low sodium DVT prophylaxis: subq heparin Dispo: continues to require inpatient care. Full code. Visit type - Emergency Visit Emergency Visit: Yes ED Registration Date: 01/06/19 Care time: The patient presented to the Emergency Department on the above date and was hospitalized for further evaluation of their emergent condition. - New Patient This patient is new to me today: No - Critical Care Critical Care patient: No
[2019-01-10] MEDS ORDERED: ROCURONIUM BROMIDE 50 MG/5 ML SYRINGE ONE (07:37)
[2019-01-10] MEDS ORDERED: SUCCINYLCHOLINE CHLORIDE 200 MG/10 ML SYRINGE ONE (07:37)
[2019-01-10] MEDS ORDERED: PROPOFOL 20 ML ONE ×3 (07:37)
[2019-01-10 07:56] LABS: BASO % 0.5 % (0-2.0); EOS % 4.4 % (0-4.5); HEMATOCRIT 26.7 % (35.4-49); HEMOGLOBIN 8.9 GM/dl (11.7-16.9); MCH 29.9 pg (25.7-33.7); MCHC 33.5 g/dl (32.0-35.9); MEAN CELL VOLUME 89.3 fl (80-96); MEAN PLT VOLUME 7.6 fl (7.5-11.1); MONO % 7.5 % (3.8-10.2); NEUT % 60.6 % (42.8-82.8); PLATELET COUNT 215 K/MM3 (134-434); RBC 2.99 M/mm3 (4.00-5.60); RDW 11.1 % (11.9-15.9); WHITE BLOOD COUNT 6.4 K/mm3 (4.0-10.8)
[2019-01-10 08:05] LABS: ALBUMIN 2.3 g/dl (3.4-5.0); BILIRUBIN,TOTAL 0.5 mg/dl (0.2-1); CALCIUM 7.7 mg/dl (8.5-10); CREATININE 3.5 mg/dl (0.55-1.3); POTASSIUM 4.5 mmol/L (3.5-5.1); TOT PROT 5.4 g/dl (6.4-8.2)
[2019-01-10] MEDS: INSULIN SLIDING SCALE (NOVOLOG) 1 VIAL SQ SCH ×4 (08:16→22:10)
[2019-01-10] MEDS ORDERED: SODIUM CHLORIDE 1,000 ML IV STA (09:46)
[2019-01-10] MEDS ORDERED: SODIUM CHLORIDE 1,000 ML IV SCH (10:00)
[2019-01-10] MEDS: metoPROLOL SUCCINATE 25 MG TAB.SR.24H (FP) PO SCH ×2 (10:21→22:09)
[2019-01-10] MEDS: amLODIPine BESYLATE 5 MG TABLET (FP) PO SCH (10:21)
--- NOTE | 2019-01-10 15:24 | PN ---
Progress Note, Physician History of Present Illness: Pt seen and examined at bedside. He is awake and alert. he denies shortness of breath. He denies dysuria or hematuria. - Current Medication List Current Medications: Active Medications Amlodipine Besylate (Norvasc -) 5 mg PO DAILY [facility] Last Admin: 01/10/19 10:21 Dose: 5 mg Atorvastatin Calcium (Lipitor -) 10 mg PO HS [facility] Last Admin: 01/09/19 21:17 Dose: 10 mg Sodium Chloride (Normal Saline -) 1,000 mls @ 75 mls/hr IV ASDIR [facility] Last Admin: 01/10/19 10:22 Dose: 75 mls/hr Insulin Aspart (Novolog Vial Sliding Scale -) 1 vial SQ [facility]; Protocol Last Admin: 01/10/19 11:50 Dose: 2 units Insulin Detemir (Levemir Vial) 12 units SQ [facility] Metoprolol Succinate (Toprol Xl -) 25 mg PO BID [facility] Last Admin: 01/10/19 10:21 Dose: 25 mg Ondansetron HCl (Zofran Injection) 4 mg IVPUSH Q6H PRN PRN Reason: NAUSEA - Objective Vital Signs: Vital Signs Temperature 98.0 F 01/10/19 14:02 Pulse Rate 72 01/10/19 14:02 Respiratory Rate 18 01/10/19 14:02 Blood Pressure 145/91 01/10/19 14:02 O2 Sat by Pulse Oximetry (%) 97 01/10/19 14:02 Constitutional: Yes: Calm Eyes: Yes: Conjunctiva Clear Cardiovascular: Yes: S1, S2 Respiratory: Yes: CTA Bilaterally Gastrointestinal: Yes: Normal Bowel Sounds, Soft Musculoskeletal: Yes: WNL Edema: Yes Edema: LLE: Trace, RLE: Trace Neurological: Yes: Oriented Psychiatric: Yes: Oriented Labs: CBC, BMP 01/10/19 07:05 01/10/19 07:05 Problem List - Problems (1) Chronic renal insufficiency Code(s): N18.9 - CHRONIC KIDNEY DISEASE, UNSPECIFIED (2) Gastroparesis due to DM Code(s): E11.43 - TYPE 2 DIABETES W DIABETIC AUTONOMIC (POLY)NEUROPATHY; K31.84 - GASTROPARESIS Assessment/Plan Current Medications Generic Name Dose Route Start Last Admin Trade Name Freq PRN Reason Stop Dose Admin Amlodipine Besylate 5 mg 01/07/19 10:00 01/10/19 10:21 Norvasc - PO 5 mg DAILY ELO[facility] Administration Atorvastatin Calcium 10 mg 01/07/19 22:00 01/09/19 21:17 Lipitor - PO 10 mg HS ELOISA Administration Sodium Chloride 1,000 mls @ 75 mls/hr 01/10/19 10:00 01/10/19 10:22 Normal Saline - IV 75 mls/hr ASDIR ELOISA Administration Insulin Aspart 1 vial 01/07/19 07:00 01/10/19 11:50 Novolog Vial Sliding Scale - SQ 2 units ACHS ELO[facility] Administration Protocol Insulin Detemir 12 units 01/10/19 22:00 Levemir Vial SQ HS [facility] Metoprolol Succinate 25 mg 01/10/19 10:00 01/10/19 10:21 Toprol Xl - PO 25 mg BID ELOISA Administration Ondansetron HCl 4 mg 01/06/19 23:04 Zofran Injection IVPUSH Q6H PRN NAUSEA Laboratory Tests 10/21/17 01/06/19 01/07/19 06:00 20:50 07:15 Creatinine 1.8 H 3.7 H 3.6 H Urine Protein Stool Occult Blood 01/07/19 01/08/19 01/09/19 07:57 07:45 06:00 Creatinine 3.4 H 3.5 H Urine Protein 3+ H Stool Occult Blood 01/09/19 01/10/19 14:30 07:05 Creatinine 3.5 H Urine Protein Stool Occult Blood Negative Laboratory Tests 01/08/19 07:45 Hemoglobin A1c % 9.4 H Impression 1. CKD with acute component 2. DM 3. HTN 4. proteinuria 5. microscopic hematuria 6. nausea and vomiting Plan - bp is improving - can stop fluids - possible progression of kidney disease - will need more extensive renal workup after discharge - renal diet - can titrate dose of metoprolol if needed - dm is poorly controlled and can account for proteinuria and ckd
[2019-01-10] MEDS ORDERED: INSULIN (LEVEMIR) 100 UNITS/ML UNITS SQ SCH (22:00)
[2019-01-10] MEDS: ATORVASTATIN CA 10 MG TABLET (FP) PO SCH (22:09)
[2019-01-11] MEDS: INSULIN SLIDING SCALE (NOVOLOG) 1 VIAL SQ SCH ×2 (07:08→12:00)
[2019-01-11 07:55] LABS: BASO % 0.6 % (0-2.0); EOS % 3.7 % (0-4.5); HEMATOCRIT 26.3 % (35.4-49); HEMOGLOBIN 8.8 GM/dl (11.7-16.9); LYMPH % 19.4 % (8-40); MCH 30.5 pg (25.7-33.7); MCHC 33.7 g/dl (32.0-35.9); MEAN CELL VOLUME 90.5 fl (80-96); MEAN PLT VOLUME 7.4 fl (7.5-11.1); MONO % 7.9 % (3.8-10.2); NEUT % 68.4 % (42.8-82.8); PLATELET COUNT 220 K/MM3 (134-434); RDW 11.4 % (11.9-15.9); WHITE BLOOD COUNT 6.6 K/mm3 (4.0-10.8)
[2019-01-11 08:00] LABS: ALBUMIN 2.4 g/dl (3.4-5.0); BILIRUBIN,TOTAL 0.5 mg/dl (0.2-1); CALCIUM 7.7 mg/dl (8.5-10); CREATININE 3.2 mg/dl (0.55-1.3); MAGNESIUM 2.2 mg/dL (1.8-2.4); POTASSIUM 4.2 mmol/L (3.5-5.1); TOT PROT 5.6 g/dl (6.4-8.2)
[2019-01-11 09:25] VITALS: BP 167/97; PULSE 75; TEMP 97.8
[2019-01-11] MEDS: metoPROLOL SUCCINATE 25 MG TAB.SR.24H (FP) PO SCH (09:26)
[2019-01-11] MEDS: amLODIPine BESYLATE 5 MG TABLET (FP) PO SCH (09:27)
--- NOTE | 2019-01-11 09:55 | DS ---
Physical Exam: SUBJECTIVE: Patient seen and examined at bedside. Voices no complaints. Thinks he is going to go back to see Dr. Ramirez as his PCP. OBJECTIVE: Vital Signs Period Temp Pulse Resp BP Sys/Morris Pulse Ox Last 24 Hr 97.5 F-98.6 F 64-78 18-18 124-189/75-97 96-100 PHYSICAL EXAM GENERAL: Awake, alert, and fully oriented, in no acute distress. LUNGS: Breath sounds equal, clear to auscultation bilaterally. No wheezes, and no crackles. No accessory muscle use. HEART: Regular rate and rhythm, normal S1 and S2 without murmur, rub or gallop. ABDOMEN: Soft, nontender, not distended, UPPER EXTREMITIES: 2+ pulses, warm, well-perfused. No cyanosis. No clubbing. No peripheral edema. LOWER EXTREMITIES: 2+ pulses, warm, well-perfused. No calf tenderness. No peripheral edema. Extensive scarring both legs, skin dry but intact NEUROLOGICAL: Cranial nerves II-XII intact. Normal speech. LABS Laboratory Results - last 24 hr 01/10/19 01/10/19 01/10/19 11:43 17:25 21:58 WBC RBC Hgb Hct MCV MCH MCHC RDW Plt Count MPV Absolute Neuts (auto) Neutrophils % Lymphocytes % Monocytes % Eosinophils % Basophils % Sodium Potassium Chloride Carbon Dioxide Anion Gap BUN Creatinine Est GFR (CKD-EPI)AfAm Est GFR (CKD-EPI)NonAf POC Glucometer 198 219 273 Random Glucose Calcium Magnesium Total Bilirubin AST ALT Alkaline Phosphatase Total Protein Albumin 01/11/19 01/11/19 01/11/19 06:41 07:05 07:05 WBC 6.6 RBC 2.90 L Hgb 8.8 L Hct 26.3 L MCV 90.5 MCH 30.5 MCHC 33.7 RDW 11.4 L Plt Count 220 MPV 7.4 L Absolute Neuts (auto) 4.6 Neutrophils % 68.4 Lymphocytes % 19.4 D Monocytes % 7.9 Eosinophils % 3.7 Basophils % 0.6 Sodium 136 Potassium 4.2 Chloride 107 Carbon Dioxide 25 Anion Gap 4 L BUN 53.0 H Creatinine 3.2 H Est GFR (CKD-EPI)AfAm 25.52 Est GFR (CKD-EPI)NonAf 22.02 POC Glucometer 99 Random Glucose 108 H Calcium 7.7 L Magnesium 2.2 Total Bilirubin 0.5 AST 14 L ALT 15 Alkaline Phosphatase 65 Total Protein 5.6 L Albumin 2.4 L HOSPITAL COURSE: Date of Admission:01/06/19 Date of Discharge: 01/11/19 Pre hospital course 48 year-old male with a PMH significant for HTN and Type II IDDM since 2007 with multiple surgeries for diabetic retinopathy. Presented to the ED with nausea and vomiting 5 days. Patient reported feeling weak with loss of appetite. Denied fever, sweats, chills. ER course (1) K 5.3, glucose 207 (2) BUN/Cr 48/3.7 (3) Xray abdomen: nonobstructive pattern (4) NS x 1L, Zofran IVP 8mg x 1 Subsequent hospital course 48 year-old male with a PMH significant for Type II IDDM and hypertension. Admitted for JAIRO, mild hyperkalemia, dehydration. Acute on chronic kidney injury --Cr 3.7 on admission, trended to 3.2 as of date of discharge, previous baseline was 1.7; per renal this may be progression of kidney disease; will need more extensive renal workup after discharge --US kidneys/bladder: unremarkable Hypertension --Lisinopril and HCTZ were held due to JAIRO and d/c'd at time of discharge due to worsening renal function --blood pressure was better controlled on Toprol XL BID and amlodipine Type II IDDM Diabetic retinopathy --Novolog sliding scale coverage Minutes to complete discharge: 35 Discharge Summary Problems reviewed: Yes Reason For Visit: HYPERKALEMIA, DIABETIC GASTROPARESIS Current Active Problems Acute gastritis (Acute) Acute kidney injury superimposed on CKD (Acute) Chronic renal insufficiency (Acute) Gastroparesis due to DM (Acute) Hyperkalemia (Acute) Uncontrolled diabetes mellitus (Acute) Uncontrolled hypertension (Acute) Condition: Improved - Instructions Diet, Activity, Other Instructions: A prescription has been sent to your pharmacy for ToprolXL, a drug to control blood pressure. Take this medication as directed. You should also continue taking your regular dose of amlodipine. You should STOP taking lisinopril and HCTZ. It is important you follow up with Dr. Zepeda, mechanical intern, for further workup for your kidney failure. You should also follow up with your primary care provider within one week to have your blood pressure checked. Referrals: Irineo Hutchison MD [Primary Care Provider] - Disposition: HOME - Home Medications Comprehensive Discharge Medication List: Ambulatory Orders Atorvastatin Ca [Lipitor] 10 mg PO HS #30 tablet MDD 1 10/22/17 Lancets [Lancets Thin] 1 each [facility] ACHS #120 each MDD 4 10/22/17 Amlodipine Besylate 5 mg PO DAILY 01/06/19 Insulin Glargine,Hum.rec.anlog [Basaglar Kwikpen U-100] 100 unit SQ ASDIR Metoprolol Succinate [Toprol XL -] 25 mg PO BID #60 tab.sr.24h 01/11/19 Prescription Drug Monitoring Program (I-STOP) results: I-STOP not reviewed This patient is new to me today: No Emergency Visit: Yes ED Registration Date: 01/06/19 Care time: The patient presented to the Emergency Department on the above date and was hospitalized for further evaluation of their emergent condition. Critical Care patient: No - Discharge Referral Referred to [facility] Med P.C.: No
== END 2019-01-11 12:30 | disposition home or self-care (01) | DRG 469 ==
LOC: FER 20:28 → FM/S 22:09 → UNDOADMIN 23:36
PROVIDERS: ADMIT Internal Medicine; ATTEND Nurse Practitioner Acute Care
DX: N17.9 Acute kidney failure, unspecified (principal); E11.43 Type 2 diabetes mellitus with diabetic autonomic (poly)neuropathy; E87.5 Hyperkalemia; E11.319 Type 2 diabetes mellitus with unspecified diabetic retinopathy without macular edema; R80.9 Proteinuria, unspecified; E11.22 Type 2 diabetes mellitus with diabetic chronic kidney disease; I13.10 Hypertensive heart and chronic kidney disease without heart failure, with stage 1 through stage 4 chronic kidney disease, or unspecified chronic kidney disease; E11.65 Type 2 diabetes mellitus with hyperglycemia; E86.0 Dehydration; K31.84 Gastroparesis; R31.29 Other microscopic hematuria; R11.2 Nausea with vomiting, unspecified; N18.3 Chronic kidney disease, stage 3 (moderate); D63.1 Anemia in chronic kidney disease
CPT/HCPCS: 36415; 74019-TC-FY; 76775-TC; 76856-TC; 80048; 80053; 81003; 81015; 82272; 82565; 82962; 83036; 83605; 83690; 83735; 84100; 84300; 85025; 87086; 93005; 99283-25; J1644; J7030

== ENCOUNTER 2019-02-23 17:48 | Inpatient (IN) | payer OTHER ==
--- NOTE | 2019-02-23 18:12 | PDOC ---
History of Present Illness - General Chief Complaint: Blood Pressure Problem Stated Complaint: HIGH BLOOD PRESSURE - History of Present Illness Initial Comments: The pt is a 48M w/ a history of HTN, DM, neuropathy, CKD who presents for evaluation of HTN. 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 At that time, 1530, he was given Amlodipine 10mg PO once and Metoprolol 25mg PO once. He denies any symptoms at that time or currently, including SURESH, dizziness, chest pain, trouble breathing, or acute change in sensation. The pt is POD#1 OD cataract surgery and reports persistent eye pain 2/2 to the surgery. He denies fevers/chills, cough, head trauma/injury 02/23/19 18:23 Past History - Past Medical History Allergies/Adverse Reactions: Allergies Allergy/AdvReac Type Severity Reaction Status Date / Time No Known Allergies Allergy Verified 02/23/19 18:01 Home Medications: Ambulatory Orders Atorvastatin Ca [Lipitor] 10 mg PO HS #30 tablet MDD 1 10/22/17 Lancets [Lancets Thin] 1 each MC ACHS #120 each MDD 4 10/22/17 Amlodipine Besylate 10 mg PO DAILY 01/06/19 Insulin Glargine,Hum.rec.anlog [Basaglar Kwikpen U-100] 100 unit SQ ASDIR Metoprolol Succinate [Toprol XL -] 25 mg PO BID #60 tab.sr.24h 01/11/19 Anemia: No Asthma: No Cancer: No Cardiac Disorders: No CVA: No COPD: No CHF: No Dementia: No Diabetes: Yes GI Disorders: No Disorders: No HTN: Yes Hypercholesterolemia: Yes Liver Disease: No Seizures: No Thyroid Disease: No - Surgical History Abdominal Surgery: No Appendectomy: No Cardiac Surgery: No Cholecystectomy: No Lung Surgery: No Neurologic Surgery: No Orthopedic Surgery: No - Immunization History Immunization Up to Date: Yes - Psycho Social/Smoking Cessation Hx Smoking History: Never smoked Have you smoked in the past 12 months: No Hx Alcohol Use: No (occasional) Drug/Substance Use Hx: No Substance Use Type: None Hx Substance Use Treatment: No Review of Systems - Review of Systems Able to Perform ROS?: Yes Comments:: GENERAL/CONSTITUTIONAL: No fever or chills. No weakness HEAD, EYES, EARS, NOSE AND THROAT: POD#1 OD cataract surgery. No change in hearing. No sore throat CARDIOVASCULAR: No chest pain or shortness of breath RESPIRATORY: Denies cough, hemoptysis GASTROINTESTINAL: No nausea, vomiting, diarrhea or constipation GENITOURINARY: No dysuria, frequency, or change in urination MUSCULOSKELETAL: No joint or muscle swelling or pain. No neck or back pain SKIN: No rash NEUROLOGIC: +chronic BUE/BLE neuropathy; No headache, vertigo, loss of consciousness ENDOCRINE: No increased thirst. No abnormal weight change HEMATOLOGIC/LYMPHATIC: No anemia, easy bleeding, or history of blood clots ALLERGIC/IMMUNOLOGIC: No hives or skin allergy 02/23/19 18:11 Is the patient limited Greenlandic proficient: No *Physical Exam - Vital Signs Last Vital Signs Temp Pulse Resp BP Pulse Ox 98.4 F 86 18 205/113 H 97 02/23/19 17:57 02/23/19 17:57 02/23/19 17:57 02/23/19 17:57 02/23/19 17:57 - Physical Exam Comments: GENERAL: Awake, alert, and oriented to person/place/time, in no acute distress HEAD: No signs of trauma, normocephalic, atraumatic EYES: PERRL, EOMI, sclera anicteric, conjunctiva clear ENT: Hearing grossly normal, nares patent, oropharynx clear without exudates. Moist mucosa LUNGS: No distress, speaks in full sentences, clear to auscultation bilaterally HEART: Regular rate and rhythm, normal S1 and S2, no murmurs appreciated, peripheral pulses normal and equal bilaterally ABDOMEN: Soft, nontender, normoactive bowel sounds. No guarding, no rebound EXTREMITIES: Normal inspection, Normal range of motion; 3+ BLE edema NEUROLOGICAL: Cranial nerves II through XII grossly intact. Normal speech, normal gait, mild decreased sensation to light touch in hands and feet SKIN: Warm, Dry 02/23/19 18:11 ED Treatment Course - LABORATORY CBC & Chemistry Diagram: 02/23/19 18:58 02/23/19 18:58 Medical Decision Making - Medical Decision Making The pt is a 48M w/ a history of HTN, DM, neuropathy, CKD who presents for evaluation of HTN. Pt s/p morning meds (Amlodipine 5mg PO, Metoprolol XR 25mg) and meds in office ( Amlodipine 10mg, Metoprolol 25mg) at 1530 ED Course Labs sent ECG CXR Amlodipine 10mg and Metoprolol XR 25mg PO once Will re-evaluate 02/23/19 18:33 ECG w/ NSR; HR 85; QTc 442; narrow QRS, no axis deviation; no PEDRO, non-specific T-wave abn 02/23/19 18:47 CXR w/ evidence of b/l effusion, BNP added 02/23/19 19:[address] Zepeda, will give Lasix 40mg IV once 02/23/19 19:33 Anemia noted, chronic, no indication to transfuse at this time No leukocytosis 02/23/19 19:36 Lytes unremarkable Cr 3.7, near baseline (~3.4) BUN 44.6, improved from previous LFTs unremarkable Trop I neg BNP 9298, no previous for comparison 02/23/19 19:52 Plan for admission for HTN, w/ likely new onset HF/cardiomyopathy 02/23/19 20:03 Pt states he brought his own eye drops Pt signed out to [facility] Admitting Pt's BP improved at this time to 168/101 02/23/19 20:59 Discharge - Discharge Information Problems reviewed: Yes Clinical Impression/Diagnosis: Leg edema, Renal insufficiency Hypertension Qualifiers: Hypertension type: unspecified Qualified Code(s): I10 - Essential (primary) hypertension Condition: Good - Admission Yes - Follow up/Referral - Patient Discharge Instructions - Post Discharge Activity
[2019-02-23] MEDS ORDERED: metoPROLOL SUCCINATE 25 MG TAB.SR.24H (FP) PO ONE (18:22)
[2019-02-23] MEDS ORDERED: amLODIPine BESYLATE 10 MG TABLET (FP) PO ONE (18:22)
[2019-02-23] MEDS ORDERED: amLODIPine BESYLATE 5 MG TABLET (FP) ONE (18:40)
[2019-02-23 19:23] LABS: BASO % 0.9 % (0-2.0); EOS % 4.6 % (0-4.5); HEMATOCRIT 29.9 % (35.4-49); HEMOGLOBIN 9.7 GM/dL (11.7-16.9); LYMPH % 17.7 % (8-40); MCH 29.9 pg (25.7-33.7); MCHC 32.5 g/dl (32.0-35.9); MEAN PLT VOLUME 7.6 fl (7.5-11.1); MONO % 7.1 % (3.8-10.2); NEUT % 69.7 % (42.8-82.8); PLATELET COUNT 252 K/MM3 (134-434); RBC 3.26 M/mm3 (4.00-5.60); RDW 13.5 % (11.9-15.9); WHITE BLOOD COUNT 7.5 K/mm3 (4.0-10.0)
--- NOTE | 2019-02-23 19:31 | PDOC ---
Attending Attestation - Resident Resident Name: Almas Gan - ED Attending Attestation I have performed the following: I have examined & evaluated the patient, The case was reviewed & discussed with the resident, I agree w/resident's findings & plan - HPI HPI: 02/23/19 19:30 The pt is a 48M w/ a history of HTN, DM, neuropathy, CKD who presents for evaluation of HTN. 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 At that time, 1530, he was given Amlodipine 10mg PO once and Metoprolol 25mg PO once. +BLE swelling x "long time," denies any symptoms at that time or currently, including SURESH, dizziness, chest pain, trouble breathing, or acute change in sensation. The pt is POD#1 OD cataract surgery and reports persistent eye pain 2/2 to the surgery. He denies fevers/chills, cough, head trauma/injury 02/23/19 20:02 - Physicial Exam PE: 02/23/19 19:30 Agree with the resident's HPI and PE as documented in the electronic medical record. NAD, well appearing, EOMI, PERRL, nl conjunctiva, anicteric; neck supple. lungs clear, RRR, abdomen soft nontender. no rebound, guarding. Back nontender. SHEPHERD x4, no focal neuro deficits. +BLE 3+peripheral edema up to pretibial region. normal color for ethnicity, WWP. no calf tenderness. 02/23/19 20:01 - Medical Decision Making 02/23/19 19:30 Vital Signs Temp Pulse Resp BP Pulse Ox 98.4 F 75 18 181/108 H 100 02/23/19 17:57 02/23/19 19:04 02/23/19 17:57 02/23/19 19:04 02/23/19 19:04 , DPatient was sent in for poorly controlled hypertension, 220s over 110s, hypertensive urgency with evidence of endorgan damage. He has received additional doses of amlodipine and metoprolol, patient is likely autoregulated so will gradually decrease his BP/map over the next 24 hours. Laboratory results are reviewed, chest x-ray with bilateral effusions which is new compared to prior imaging, he is otherwise asymptomatic and will admit for hypertensive urgency, nephrology consulted. recommended IV lasix for the effusions, diuresis, new onset pleural effusions, BP control on recheck down to SBP 150-160s/100 on monitor. Laboratory results are reviewed, baseline anemia is noted as well as the CKD, no electrolyte abnormalities. Neg trop, unlikely ACS, BNP is significantly elevated 9298 so this is correlating with likely new onset cardiomyopathy, will need follow-up echo and evaluation when admitted. 02/23/19 20:02 02/23/19 20:03 Heart Score/ECG Review #1 ECG reviewed & interpreted by me at: 17:50 General ECG Interpretation: Sinus Rhythm, Normal Rate, Normal Intervals 02/23/19 19:33 EKG normal sinus rhythm at 85 bpm, no interval abnormalities, narrow QRS, ST and T wave segments and morphology normal. Nonspecific T wave abnormalities
[2019-02-23] MEDS ORDERED: FUROSEMIDE 40 MG/4 ML INJECTABLE VIAL IVPUSH ONE (19:32)
[2019-02-23] MEDS ORDERED: FUROSEMIDE 40 MG/4 ML INJECTABLE VIAL ONE (19:41)
[2019-02-23 19:49] LABS: ALBUMIN 2.3 g/dl (3.4-5.0); BILIRUBIN,TOTAL 0.2 mg/dL (0.2-1); BLOOD UREA NITROGEN 44.6 mg/dL (7-18); CREATININE 3.7 mg/dL (0.55-1.3); N-TERMINAL BNP 9298.2 pg/ml (5-125); POTASSIUM 4.5 mmol/L (3.5-5.1); TOT PROT 5.9 g/dl (6.4-8.2)
--- NOTE | 2019-02-23 22:27 | HP ---
Admitting History and Physical - Primary Care Physician PCP: Irineo Hutchison - Admission Chief Complaint: Uncontrolled Blood Pressure History of Present Illness: This is a 48 y/o man with a PMHx of HTN, DM, Neuropathy, CKD. Who presents to the ED for evaluation of elevated blood pressure. The patient was evaluated at his [employer] Coordinator's office today where he was noted to have SBP in the 200s. At that time, 1530, he was given Amlodipine 10mg PO once and Metoprolol 25mg PO once. 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 Patient denies fever, chills, cough, dizziness, SURESH, SOB, CP, palpitations, AP, N/V/D, constipation, dysuria History Source: Patient Limitations to Obtaining History: No Limitations - Past Medical History Cardiovascular: Yes: HTN, Hyperlipdemia Renal/: Yes: Renal Inusuff Endocrine: Yes: Diabetes Mellitus (x 10 years ) - Past Surgical History Past Surgical History: Yes: Cataract Removal - Smoking History Smoking history: Never smoked Have you smoked in the past 12 months: No - Alcohol/Substance Use Hx Alcohol Use: No (occasional) History of Substance Use: reports: None - Social History ADL: Independent Occupation: [employer] History of Recent Travel: No Home Medications - Allergies Allergies/Adverse Reactions: Allergies Allergy/AdvReac Type Severity Reaction Status Date / Time No Known Allergies Allergy Verified 02/23/19 18:01 - Home Medications Home Medications: Ambulatory Orders Atorvastatin Ca [Lipitor] 10 mg PO HS #30 tablet MDD 1 10/22/17 Lancets [Lancets Thin] 1 each ACHS #120 each MDD 4 10/22/17 Amlodipine Besylate 10 mg PO DAILY 01/06/19 Insulin Glargine,Hum.rec.anlog [Basaglar Kwikpen U-100] 100 unit SQ ASDIR Metoprolol Succinate [Toprol XL -] 25 mg PO BID #60 tab.sr.24h 01/11/19 Review of Systems - Review of Systems Constitutional: reports: No Symptoms Eyes: reports: Eye Pain (s/p cataract sx) HENT: reports: No Symptoms Neck: reports: No Symptoms Cardiovascular: reports: No Symptoms Respiratory: reports: No Symptoms Gastrointestinal: reports: No Symptoms Genitourinary: reports: No Symptoms Breasts: reports: No Symptoms Reported Musculoskeletal: reports: No Symptoms Integumentary: reports: No Symptoms Neurological: reports: No Symptoms Endocrine: reports: No Symptoms Hematology/Lymphatic: reports: No Symptoms Psychiatric: reports: No Symptoms Pain Intensity: 0 Physical Examination Vital Signs: Vital Signs Temperature 98.4 F 02/23/19 17:57 Pulse Rate 73 02/23/19 19:55 Respiratory Rate 16 02/23/19 19:55 Blood Pressure 168/101 H 02/23/19 19:55 O2 Sat by Pulse Oximetry (%) 97 02/23/19 20:14 Constitutional: Yes: Well Nourished, No Distress, Calm Eyes: Yes: WNL, Conjunctiva Clear, EOM Intact, PERRL HENT: Yes: WNL, Atraumatic, Normocephalic Neck: Yes: WNL, Supple, Trachea Midline Cardiovascular: Yes: WNL, Regular Rate and Rhythm, S1, S2 Respiratory: Yes: WNL, Regular, CTA Bilaterally Gastrointestinal: Yes: WNL, Normal Bowel Sounds, Soft ...Rectal Exam: Yes: Deferred Renal/: Yes: WNL Breast(s): Yes: WNL Musculoskeletal: Yes: WNL Extremities: Yes: WNL Edema: Yes Edema: LLE: 3+, RLE: 3+ Peripheral Pulses WNL: Yes Neurological: Yes: WNL, Alert, Oriented, Cran Nerves II-XII Intact ...Motor Strength: WNL Psychiatric: Yes: WNL, Alert, Oriented Labs: CBC, BMP 02/23/19 18:58 02/23/19 18:58 Imaging - Results Chest X-ray: Image Reviewed EKG: Image Reviewed Problem List - Problems (1) Hypertensive emergency Assessment/Plan: Likely secondary to medication compliance Admit to Telemetry Appreciate Cardiology consult Serial Enzymes Chest Xray image bilateral pleural effusions, awaiting official report Echo in am Cr 3.7 (at baseline 0.6-3.7) Renal US done 12/2018- morphologically normal kidneys with no evidence of hydronephrosis or acute pathology. No intrinsic bladder abnormalities are identified. Continue home medications with parameters Would benefit with diuretics secondary to BLE edema Monitor renal function Code(s): I16.1 - HYPERTENSIVE EMERGENCY (2) Acute kidney injury superimposed on CKD Assessment/Plan: Cr 3.7, at baseline Appreciate Nephrology consult Renal US 12/2018- reviewed Monitor BMP Avoid Nephrotoxic drugs Code(s): N17.9 - ACUTE KIDNEY FAILURE, UNSPECIFIED; N18.9 - CHRONIC KIDNEY DISEASE, UNSPECIFIED (3) Leg edema Assessment/Plan: Likely secondary to new onset HF vs Cardiomyopathy Lasix given in ED, will continue Would benefit with diuretics secondary to BLE edema Monitor renal function Code(s): R60.0 - LOCALIZED EDEMA (4) Diabetes mellitus with hyperglycemia Assessment/Plan: BGMs ISS HgbA1c in am Consider Endocrinology consult for tighter glycemic control BMP Code(s): E11.65 - TYPE 2 DIABETES MELLITUS WITH HYPERGLYCEMIA Qualifiers: Diabetes mellitus type: type 1 Qualified Code(s): E10.65 - Type 1 diabetes mellitus with hyperglycemia Assessment/Plan This is a 48 y/o man with a PMHx of HTN, DM, Neuropathy, CKD. Admitted to Telemetry for Hypertensive Emergency for further evaluation of their emergent condition. Plan: See Problem List FEN Replete lytes prn Low Na, Diabetic Diet DVT ppx OOB SCDs Heparin SQ Code Status: Full Code Dispo: Requires Inpatient Care Visit type - Emergency Visit Emergency Visit: Yes ED Registration Date: 02/23/19 Care time: The patient presented to the Emergency Department on the above date and was hospitalized for further evaluation of their emergent condition. - New Patient This patient is new to me today: Yes Date on this admission: 02/23/19 - Critical Care Critical Care patient: No
[2019-02-23 23:07] VITALS: BMI 27.2
[2019-02-23] MEDS: ATORVASTATIN CA 10 MG TABLET (FP) PO SCH (23:28)
[2019-02-23] MEDS: amLODIPine BESYLATE 10 MG TABLET (FP) PO SCH (23:28)
[2019-02-23] MEDS: metoPROLOL SUCCINATE 25 MG TAB.SR.24H (FP) PO SCH (23:28)
[2019-02-23] MEDS: INSULIN SLIDING SCALE (NOVOLOG) 1 VIAL SQ SCH (23:29)
[2019-02-24] MEDS: INSULIN SLIDING SCALE (NOVOLOG) 1 VIAL SQ SCH ×4 (06:26→21:57)
[2019-02-24 07:03] LABS: HEMATOCRIT 26.3 % (35.4-49); HEMOGLOBIN 8.8 GM/dL (11.7-16.9); LYMPH % 21.1 % (8-40); MCH 30.4 pg (25.7-33.7); MCHC 33.3 g/dl (32.0-35.9); MEAN CELL VOLUME 91.4 fl (80-96); MEAN PLT VOLUME 7.8 fl (7.5-11.1); MONO % 8.3 % (3.8-10.2); NEUT % 63.6 % (42.8-82.8); PLATELET COUNT 194 K/MM3 (134-434); RBC 2.88 M/mm3 (4.00-5.60); RDW 13.6 % (11.9-15.9); WHITE BLOOD COUNT 6.5 K/mm3 (4.0-10.0)
[2019-02-24 07:39] LABS: BLOOD UREA NITROGEN 49.4 mg/dL (7-18); CALCIUM 7.7 mg/dL (8.5-10.1); CREATININE 3.9 mg/dL (0.55-1.3); MAGNESIUM 1.8 mg/dL (1.8-2.4); POTASSIUM 4.3 mmol/L (3.5-5.1)
[2019-02-24] MEDS ORDERED: FUROSEMIDE 40 MG/4 ML INJECTABLE VIAL IVPUSH SCH (10:00)
[2019-02-24] MEDS ORDERED: FLU VACCINE QUAD 60 MCG/0.5 ML (MDV 19-20) IM ONE (10:00)
[2019-02-24] MEDS: amLODIPine BESYLATE 10 MG TABLET (FP) PO SCH (10:15)
[2019-02-24] MEDS: metoPROLOL SUCCINATE 25 MG TAB.SR.24H (FP) PO SCH (10:15)
--- NOTE | 2019-02-24 11:26 | PN ---
Physical Exam: SUBJECTIVE: Patient seen and examined at the bedside. denies any chest pain or shortness of breath. resting comfortably. OBJECTIVE: Patient is a 48 year old male with a significant past medical history of hypertension, diabetes HTN, DM, Neuropathy, CKD. Who presents to the ED for evaluation of elevated blood pressure. The pt was evaluated at his local superintendent 's office (Dr Zepeda) where he was noted to have SBP in the 200s, was given amlodopine 10, metoprolol 25 and being admitted for hypertensive emergency. Period Temp Pulse Resp BP Sys/Morris Pulse Ox Last 24 Hr 97.7 F-98.4 F 58-86 16-18 113-205/62-113 97-100 GENERAL: The patient is awake, alert, and fully oriented, in no acute distress. HEAD: Normal with no signs of trauma. s/p right eye cataract surgery EYES: PERRL, extraocular movements intact, sclera anicteric, conjunctiva clear. No ptosis. ENT: Ears normal, nares patent, oropharynx clear without exudates, moist mucous membranes. NECK: Trachea midline, full range of motion, supple. LUNGS: Breath sounds equal, clear to auscultation bilaterally, no wheezes, no crackles, no accessory muscle use. HEART: Regular rate and rhythm, ABDOMEN: Soft, nontender, nondistended, normoactive bowel sounds, no guarding, no rebound, no hepatosplenomegaly, no masses. EXTREMITIES: +3 edema bilaterally with some dried scabs on anterior legs. NEUROLOGICAL: Normal speech, gait steady with cane PSYCH: Normal mood, normal affect. Laboratory Results - last 24 hr 02/23/19 02/23/19 02/23/19 18:58 18:58 18:58 WBC 7.5 RBC 3.26 L Hgb 9.7 L Hct 29.9 L MCV 92.0 MCH 29.9 MCHC 32.5 RDW 13.5 D Plt Count 252 MPV 7.6 Absolute Neuts (auto) 5.2 Neutrophils % 69.7 Lymphocytes % 17.7 D Monocytes % 7.1 Eosinophils % 4.6 H Basophils % 0.9 Nucleated RBC % 0 Sodium 139 Potassium 4.5 Chloride 112 H Carbon Dioxide 23 Anion Gap 4 L BUN 44.6 H Creatinine 3.7 H Est GFR (CKD-EPI)AfAm 21.41 Est GFR (CKD-EPI)NonAf 18.48 POC Glucometer Random Glucose 232 H Hemoglobin A1c % Calcium 8.0 L Phosphorus Magnesium Total Bilirubin 0.2 AST 5 L ALT 13 Alkaline Phosphatase 91 Troponin I < 0.02 B-Natriuretic Peptide 9298.2 H Total Protein 5.9 L Albumin 2.3 L Triglycerides Cholesterol Total LDL Cholesterol HDL Cholesterol TSH 02/23/19 02/24/19 02/24/19 23:26 00:02 06:05 WBC 6.5 RBC 2.88 L Hgb 8.8 L Hct 26.3 L MCV 91.4 MCH 30.4 MCHC 33.3 RDW 13.6 Plt Count 194 D MPV 7.8 Absolute Neuts (auto) 4.1 Neutrophils % 63.6 Lymphocytes % 21.1 Monocytes % 8.3 Eosinophils % 6.0 H Basophils % 1.0 Nucleated RBC % 0 Sodium Potassium Chloride Carbon Dioxide Anion Gap BUN Creatinine Est GFR (CKD-EPI)AfAm Est GFR (CKD-EPI)NonAf POC Glucometer 298 Random Glucose Hemoglobin A1c % Calcium Phosphorus Magnesium Total Bilirubin AST ALT Alkaline Phosphatase Troponin I < 0.02 B-Natriuretic Peptide Total Protein Albumin Triglycerides Cholesterol Total LDL Cholesterol HDL Cholesterol TSH 02/24/19 02/24/19 02/24/19 06:05 06:05 06:21 WBC RBC Hgb Hct MCV MCH MCHC RDW Plt Count MPV Absolute Neuts (auto) Neutrophils % Lymphocytes % Monocytes % Eosinophils % Basophils % Nucleated RBC % Sodium 141 Potassium 4.3 Chloride 114 H Carbon Dioxide 23 Anion Gap 4 L BUN 49.4 H Creatinine 3.9 H Est GFR (CKD-EPI)AfAm 20.09 Est GFR (CKD-EPI)NonAf 17.34 POC Glucometer 118 Random Glucose 110 H Hemoglobin A1c % 9.8 H Calcium 7.7 L Phosphorus 5.0 H Magnesium 1.8 Total Bilirubin AST ALT Alkaline Phosphatase Troponin I 0.03 B-Natriuretic Peptide Total Protein Albumin Triglycerides 123 Cholesterol 214 H Total LDL Cholesterol 144 H HDL Cholesterol 43 TSH 2.84 Active Medications Generic Name Dose Route Start Last Admin Trade Name Freq PRN Reason Stop Dose Admin Amlodipine Besylate 10 mg 02/23/19 23:15 02/24/19 10:15 Norvasc - PO 10 mg DAILY ELOISA Administration Atorvastatin Calcium 10 mg 02/23/19 23:15 02/23/19 23:28 Lipitor - PO 10 mg HS ELOISA Administration Furosemide 40 mg 02/24/19 10:00 02/24/19 10:15 Lasix Injection - IVPUSH 40 mg DAILY ELOISA Administration Insulin Aspart 1 vial 02/23/19 23:15 02/24/19 06:26 Novolog Vial Sliding Scale - SQ Not Given ACHS [facility] Protocol Metoprolol Succinate 25 mg 02/23/19 23:15 02/24/19 10:15 Toprol Xl - PO 25 mg BID ELOISA Administration ASSESSMENT/PLAN: Problem List - Problems (1) Hypertensive emergency Assessment/Plan: resolved medications adjusted by cardiology. monitor Bp on new regimen and perform teaching on medication compliance and its importance. lasix BID follow up with Dr. venegas as an outpatient Code(s): I16.1 - HYPERTENSIVE EMERGENCY (2) Leg edema Assessment/Plan: improving on lasix bid continue lasix 40mg BID with outpatient f/u to monitor kidney function K is stable Code(s): R60.0 - LOCALIZED EDEMA (3) Renal insufficiency Assessment/Plan: creatinine 4.[address] Zepeda as an outpatient K is stable on lasix 40mg bid Code(s): N28.9 - DISORDER OF KIDNEY AND URETER, UNSPECIFIED (4) JAIRO (acute kidney injury) Assessment/Plan: follows with renal Code(s): N17.9 - ACUTE KIDNEY FAILURE, UNSPECIFIED Visit type - Emergency Visit Emergency Visit: Yes ED Registration Date: 02/23/19 Care time: The patient presented to the Emergency Department on the above date and was hospitalized for further evaluation of their emergent condition. - New Patient This patient is new to me today: No - Critical Care Critical Care patient: No - Discharge Referral Referred to [facility] Med P.C.: No
--- NOTE | 2019-02-24 12:39 | EKG ---
Test Reason : Blood Pressure : / mmHG Vent. Rate : 085 BPM Atrial Rate : 085 BPM P-R Int : 120 ms QRS Dur : 088 ms QT Int : 372 ms P-R-T Axes : 036 032 126 degrees QTc Int : 442 ms NORMAL SINUS RHYTHM POSSIBLE LEFT ATRIAL ENLARGEMENT NONSPECIFIC ST AND T WAVE ABNORMALITY ABNORMAL ECG WHEN COMPARED WITH ECG OF 06-JAN-2019 21:21, NO SIGNIFICANT CHANGE WAS FOUND Confirmed by MATA GONGORA, DESIRAE ([id number]) on 02/24/2019 12:38:54 PM Referred By: Confirmed By:DESIRAE AUGUST MD
--- NOTE | 2019-02-24 13:10 | CONSULT ---
Consult Consult Specialty:: Nephrology Reason for Consultation:: JAIRO - History of Present Illness Chief Complaint: I sent pt in for uncontrolled HTN History of Present Illness: Pt is a 48 year old male with pmhx of ckd, htn and DM who presented to my office yesterday for follow up. he was found to be hypertensive. His bp wsa about 200/97. He had not taken any of his bp meds. he did have his meds with him. he took the metoprolol and they amlodipine. His repeat pressure was about 210/110. I sent him in for eval and treatment. He currently feels well. he denies chest pain or palpitations. he does have lower ext edema. - History Source History Provided By: Patient - Past Medical History Cardio/Vascular: Yes: HTN, Hyperlipdemia Renal/: Yes: Renal Inusuff Endocrine: Yes: Diabetes Mellitus (x 10 years ) - Past Surgical History Past Surgical History: Yes: Cataract Removal - Alcohol/Substance Use Hx Alcohol Use: No (occasional) History of Substance Use: reports: None - Smoking History Smoking history: Never smoked Have you smoked in the past 12 months: No - Social History Usual Living Arrangement: Alone ADL: Independent Occupation: [employer] History of Recent Travel: No Home Medications - Allergies Allergies/Adverse Reactions: Allergies Allergy/AdvReac Type Severity Reaction Status Date / Time No Known Allergies Allergy Verified 02/23/19 18:01 - Home Medications Home Medications: Ambulatory Orders Atorvastatin Ca [Lipitor] 10 mg PO HS #30 tablet MDD 1 10/22/17 Lancets [Lancets Thin] 1 each ACHS #120 each MDD 4 10/22/17 Amlodipine Besylate 10 mg PO DAILY 01/06/19 Insulin Glargine,Hum.rec.anlog [Basaglar Kwikpen U-100] 100 unit SQ ASDIR Metoprolol Succinate [Toprol XL -] 25 mg PO BID #60 tab.sr.24h 01/11/19 Family Medical History Family History: Denies Review of Systems - Review of Systems Constitutional: reports: No Symptoms Eyes: reports: Other (pt is blind) HENT: reports: No Symptoms Neck: reports: No Symptoms Cardiovascular: reports: Edema Respiratory: reports: No Symptoms Gastrointestinal: reports: No Symptoms Genitourinary: reports: No Symptoms Musculoskeletal: reports: No Symptoms Integumentary: reports: No Symptoms Neurological: reports: No Symptoms Endocrine: reports: No Symptoms Hematology/Lymphatic: reports: No Symptoms Psychiatric: reports: No Symptoms Physical Exam Vital Signs: Vital Signs Temperature 97.7 F 02/24/19 10:00 Pulse Rate 70 02/24/19 10:00 Respiratory Rate 16 02/24/19 10:00 Blood Pressure 127/68 02/24/19 10:00 O2 Sat by Pulse Oximetry (%) 98 02/24/19 09:00 Constitutional: Yes: Calm HENT: Yes: Atraumatic Neck: Yes: Supple Cardiovascular: Yes: S1, S2 Respiratory: Yes: CTA Bilaterally Gastrointestinal: Yes: Soft Renal/: Yes: WNL Musculoskeletal: Yes: WNL Edema: Yes Edema: LLE: 2+, RLE: 2+ Neurological: Yes: Oriented Psychiatric: Yes: Oriented Labs: CBC, BMP 02/24/19 06:05 02/24/19 06:05 Laboratory Tests 01/11/19 02/23/19 02/23/19 07:05 18:58 18:58 Hgb 9.7 L BUN Creatinine 3.2 H 3.7 H Hemoglobin A1c % 02/24/19 02/24/19 02/24/19 06:05 06:05 06:05 Hgb 8.8 L BUN 49.4 H Creatinine 3.9 H Hemoglobin A1c % 9.8 H Imaging - Results Chest X-ray: Report Reviewed Problem List - Problems (1) HTN (hypertension) Code(s): I10 - ESSENTIAL (PRIMARY) HYPERTENSION Qualifiers: Hypertension type: unspecified Qualified Code(s): I10 - Essential (primary ) hypertension (2) Hypertensive emergency Code(s): I16.1 - HYPERTENSIVE EMERGENCY (3) Leg edema Code(s): R60.0 - LOCALIZED EDEMA (4) JAIRO (acute kidney injury) Code(s): N17.9 - ACUTE KIDNEY FAILURE, UNSPECIFIED Assessment/Plan Current Medications Generic Name Dose Route Start Last Admin Trade Name Freq PRN Reason Stop Dose Admin Amlodipine Besylate 10 mg 02/23/19 23:15 02/24/19 10:15 Norvasc - PO 10 mg DAILY ELOISA Administration Atorvastatin Calcium 10 mg 02/23/19 23:15 02/23/19 23:28 Lipitor - PO 10 mg HS ELOISA Administration Furosemide 40 mg 02/24/19 10:00 02/24/19 10:15 Lasix Injection - IVPUSH 40 mg DAILY ELOISA Administration Insulin Aspart 1 vial 02/23/19 23:15 02/24/19 11:56 Novolog Vial Sliding Scale - SQ 2 units ACHS ELOISA Administration Protocol Metoprolol Succinate 25 mg 02/23/19 23:15 02/24/19 10:15 Toprol Xl - PO 25 mg BID ELOISA Administration Impression 1. CKD with acute component 2. DM 3. HTN 4. proteinuria 5. microscopic hematuria 6. volume overload Plan - cont lasix - htn likely secondary to non compliance with meds - monitor renal function - repeat labs in am - check ua and prt to rn coronary care unit ratio
--- NOTE | 2019-02-24 13:43 | CON.CARD ---
Consult Consult Specialty:: cardiology Referred by:: Emma Reason for Consultation:: poorly controlled hypertension - History of Present Illness Chief Complaint: Poorly controlled hypertension History of Present Illness: The patient is a 48-year-old man, we've a history of diabetes, hypertension, diabetic neuropathy and retinopathy, chronic kidney disease, who was sentto the hospital from the eye doctor's office for poorly controlled hypertension. The patient is currently comfortable.He reports absolutely no symptoms. Denies chest pains and shortness of breath. No palpitations. - History Source History Provided By: Patient, Medical Record Limitations to Obtaining History: No Limitations - Past Medical History Cardio/Vascular: Yes: HTN, Hyperlipdemia Renal/: Yes: Renal Inusuff Endocrine: Yes: Diabetes Mellitus (x 10 years ) - Past Surgical History Past Surgical History: Yes: Cataract Removal - Alcohol/Substance Use Hx Alcohol Use: No (occasional) History of Substance Use: reports: None - Smoking History Smoking history: Never smoked Have you smoked in the past 12 months: No - Social History Usual Living Arrangement: Alone ADL: Independent Occupation: [employer] History of Recent Travel: No Home Medications - Allergies Allergies/Adverse Reactions: Allergies Allergy/AdvReac Type Severity Reaction Status Date / Time No Known Allergies Allergy Verified 02/23/19 18:01 - Home Medications Home Medications: Ambulatory Orders Atorvastatin Ca [Lipitor] 10 mg PO HS #30 tablet MDD 1 10/22/17 Lancets [Lancets Thin] 1 each MC ACHS #120 each MDD 4 10/22/17 Amlodipine Besylate 10 mg PO DAILY 01/06/19 Insulin Glargine,Hum.rec.anlog [Basaglar Kwikpen U-100] 100 unit SQ ASDIR Metoprolol Succinate [Toprol XL -] 25 mg PO BID #60 tab.sr.24h 01/11/19 Review of Systems - Review of Systems Constitutional: reports: No Symptoms HENT: reports: No Symptoms Neck: reports: No Symptoms Cardiovascular: reports: No Symptoms Respiratory: reports: No Symptoms Gastrointestinal: reports: No Symptoms Genitourinary: reports: No Symptoms Breasts: reports: No Symptoms Reported Musculoskeletal: reports: No Symptoms Integumentary: reports: No Symptoms Neurological: reports: No Symptoms Endocrine: reports: No Symptoms Hematology/Lymphatic: reports: No Symptoms Psychiatric: reports: No Symptoms Vital Signs: Vital Signs Temperature 97.7 F 02/24/19 10:00 Pulse Rate 70 02/24/19 10:00 Respiratory Rate 16 02/24/19 10:00 Blood Pressure 127/68 02/24/19 10:00 O2 Sat by Pulse Oximetry (%) 98 02/24/19 09:00 Constitutional: Yes: Well Nourished, No Distress, Calm HENT: Yes: WNL, Atraumatic, Normocephalic Neck: Yes: WNL, Supple, Trachea Midline Respiratory: Yes: Other (Decreased breath sounds at bases, no rales/wheezes) Gastrointestinal: Yes: WNL, Normal Bowel Sounds, Soft Renal/: Yes: WNL Cardiovascular: Yes: WNL, Regular Rate and Rhythm JVD: No Carotid Bruit: No PMI: Non-Displaced Heart Sounds: Yes: S1, S2 Murmur: Yes: Systolic Murmur, Grade 2 Musculoskeletal: Yes: WNL Extremities: Yes: Other (sarah) Edema: Yes Edema: LLE: 1+, RLE: 1+ Peripheral Pulses WNL: No Peripheral Pulses: 1+ Left Carotid, 1+ Right Carotid, 1+ Left Femoral, 1+ Right Femoral, 1+ Left Popliteal, 1+ Right Popliteal, 1+ Left Doralis Pedis, 1+ Right Dorsalis Pedis Integumentary: Yes: WNL Neurological: Yes: WNL, Alert, Oriented ...Motor Strength: WNL Psychiatric: Yes: WNL, Alert, Oriented - Other Data Labs, Other Data: CBC, BMP 02/24/19 06:05 Troponin, BNP 02/23/19 02/23/19 02/24/19 18:58 18:58 00:02 Troponin I < 0.02 < 0.02 B-Natriuretic Peptide 9298.2 H 02/24/19 06:05 Troponin I 0.03 B-Natriuretic Peptide Troponin, BNP 02/23/19 02/23/19 02/24/19 18:58 18:58 00:02 Troponin I < 0.02 < 0.02 B-Natriuretic Peptide 9298.2 H 02/24/19 06:05 Troponin I 0.03 B-Natriuretic Peptide Assessment/Plan The patient is a 48-year-old man, we've a history of diabetes, hypertension, diabetic neuropathy and retinopathy, chronic kidney disease, who was sentto the hospital from the eye doctor's office for poorly controlled hypertension. The patient is currently comfortable.He reports absolutely no symptoms. Denies chest pains and shortness of breath. No palpitations. there is no evidence of ischemia nor acute coronary syndrome. The blood pressures better controlled.Mild pulmonary congestion.Significant ower extremity edema which is not new. Please stop the Norvasc. It may be contributing to the edema. increase Toprol-XL from 25-50 mg daily. Start hydralazine 25 mg 3 times a day. Give Lasix 40 mg IV 2 times a day. fluid and salt restrictions. Please arrange for an echocardiogram. The patient is stable.
--- NOTE | 2019-02-24 14:01 | ECHO ---
Name: MILE ALISON Exam:Adult Echocardiogram Study Date: 02/24/2019 09:05 AM Age: 48 yrs Reason For Study: Chest pain Height: 67 in Weight: 159 lb BSA: 1.8 m2 MMode/2D Measurements & Calculations IVSd: 1.2 cm Ao root diam: 2.4 cm LVIDd: 3.4 cm LA dimension: 3.8 cm LVIDs: 2.2 cm ACS: 1.9 cm LVPWd: 1.5 cm EDV(Teich): 45.9 ml LVOT diam: 1.9 cm ESV(Teich): 17.1 ml Doppler Measurements & Calculations MV E max cody: 87.8 cm/sec Ao V2 max: 142.4 cm/sec MV A max cody: 96.7 cm/sec Ao max P.1 mmHg MV E/A: 0.91 Ao V2 mean: 101.4 cm/sec MV dec time: 0.12 sec Ao mean P.5 mmHg Ao V2 VTI: 28.9 cm MIRTHA(I,D): 1.6 cm2 MIRTHA(V,D): 1.7 cm2 LV V1 max P.6 mmHg SV(LVOT): 46.9 ml LV V1 mean P.3 mmHg LV V1 max: 80.2 cm/sec LV V1 mean: 53.3 cm/sec LV V1 VTI: 15.9 cm TR max cody: 271.7 cm/sec Med Peak E' Cody: 8.7 cm/sec TR max P.5 mmHg Med E/e': 10.1 RVSP(TR): 40.5 mmHg Lat Peak E' Cody: 6.2 cm/sec Lat E/e': 14.1 RAP systole: 10.0 mmHg Procedure A complete two-dimensional transthoracic echocardiogram was performed (2D, M-mode, Doppler and color flow Doppler). Left Ventricle The left ventricular size, thickness and function are normal. The left ventricular ejection fraction is normal. Ejection Fraction = 55-60%. The left ventricular wall motion is normal. Right Ventricle The right ventricle is normal in size and function. Atria Normal left and right atrial size and function. Mitral Valve There is no mitral regurgitation noted. Tricuspid Valve There is mild tricuspid regurgitation. There is mild pulmonary hypertension. Aortic Valve No hemodynamically significant valvular aortic stenosis. No aortic regurgitation is present. Pulmonic Valve There is no pulmonic valvular regurgitation. Great Vessels The aortic root is normal size. Pericardium/Pleura There is no pericardial effusion. Interpretation Summary The left ventricular size, thickness and function are normal The right ventricle is normal in size and function. There is mild tricuspid regurgitation. There is mild pulmonary hypertension. MD Nabil Martinez 02/24/2019 02:00 PM
[2019-02-24 16:42] LABS: EPI CELLS 1.1 /HPF (0-5/HPF); HYALINE CASTS 5 /lpf (0-8); PH,URINE 5.5 (5.0-8.0); URINE APPEARANCE CLEAR; URINE BACTERIA 1.4 /hpf (NEGATIVE); URINE BILIRUBIN NEGATIVE (NEGATIVE); URINE COLOR YELLOW; URINE GLUCOSE (UA) 1+ (NEGATIVE); URINE KETONE NEGATIVE (NEGATIVE); URINE LEUK ESTERASE NEGATIVE (NEGATIVE); URINE NITRITE NEGATIVE (NEGATIVE); URINE PROTEIN 3+ (NEGATIVE); URINE RBC 2 /hpf (0-4); URINE UROBILINOGEN 0.2 mg/dL (0.2-1.0); URINE WBC 1 /hpf (0-5)
[2019-02-24] MEDS: ATORVASTATIN CA 10 MG TABLET (FP) PO SCH (21:56)
[2019-02-24] MEDS: hydrALAZINE HCL 25 MG TABLET (FP) PO SCH (21:56)
[2019-02-25] MEDS: hydrALAZINE HCL 25 MG TABLET (FP) PO SCH ×2 (05:46→14:32)
[2019-02-25] MEDS: FUROSEMIDE 40 MG/4 ML INJECTABLE VIAL IVPUSH SCH ×2 (05:46→14:32)
[2019-02-25] MEDS: INSULIN SLIDING SCALE (NOVOLOG) 1 VIAL SQ SCH ×2 (06:18→12:21)
[2019-02-25 08:28] LABS: BASO % 0.9 % (0-2.0); EOS % 5.4 % (0-4.5); HEMATOCRIT 25.8 % (35.4-49); HEMOGLOBIN 8.5 GM/dL (11.7-16.9); LYMPH % 20.9 % (8-40); MCH 30.1 pg (25.7-33.7); MCHC 32.8 g/dl (32.0-35.9); MEAN CELL VOLUME 91.7 fl (80-96); MEAN PLT VOLUME 8.1 fl (7.5-11.1); MONO % 7.9 % (3.8-10.2); NEUT % 64.9 % (42.8-82.8); PLATELET COUNT 183 K/MM3 (134-434); RBC 2.81 M/mm3 (4.00-5.60); RDW 13.5 % (11.9-15.9); WHITE BLOOD COUNT 6.3 K/mm3 (4.0-10.0)
[2019-02-25 08:56] LABS: ALBUMIN 1.9 g/dl (3.4-5.0); BILIRUBIN,TOTAL 0.2 mg/dL (0.2-1); BLOOD UREA NITROGEN 58.9 mg/dL (7-18); CALCIUM 7.6 mg/dL (8.5-10.1); CREATININE 4.3 mg/dL (0.55-1.3); MAGNESIUM 2.1 mg/dL (1.8-2.4); POTASSIUM 4.2 mmol/L (3.5-5.1)
--- NOTE | 2019-02-25 12:58 | PN ---
Progress Note, Physician Chief Complaint: lFuid overload History of Present Illness: The patient is a 48-year-old man, we've a history of diabetes, hypertension, diabetic neuropathy and retinopathy, chronic kidney disease, who was sentto the hospital from the eye doctor's office for poorly controlled hypertension. The patient is currently comfortable.He reports absolutely no symptoms. Denies chest pains and shortness of breath. No palpitations. there is no evidence of ischemia nor acute coronary syndrome. The blood pressures better controlled.Mild pulmonary congestion.Significant ower extremity edema which is not new. - Current Medication List Current Medications: Active Medications Atorvastatin Calcium (Lipitor -) 10 mg PO HS [facility] Last Admin: 02/24/19 21:56 Dose: 10 mg Furosemide (Lasix Injection -) 40 mg IVPUSH BID@0600,1400 [facility] Last Admin: 02/25/19 05:46 Dose: 40 mg Hydralazine HCl (Apresoline -) 25 mg PO TID [facility] Last Admin: 02/25/19 05:46 Dose: 25 mg Insulin Aspart (Novolog Vial Sliding Scale -) 1 vial SQ ACHS [facility]; Protocol Last Admin: 02/25/19 12:21 Dose: 2 units Metoprolol Succinate (Toprol Xl -) 50 mg PO DAILY [facility] Last Admin: 02/25/19 10:54 Dose: 50 mg - Objective Vital Signs: Vital Signs Temperature 98 F 02/25/19 09:00 Pulse Rate 74 02/25/19 10:53 Respiratory Rate 18 02/25/19 10:53 Blood Pressure 136/78 02/25/19 10:53 O2 Sat by Pulse Oximetry (%) 99 02/24/19 21:00 Constitutional: Yes: Well Nourished, No Distress, Calm Eyes: Yes: Conjunctiva Clear, EOM Intact HENT: Yes: WNL, Atraumatic, Normocephalic Neck: Yes: WNL, Supple, Trachea Midline Cardiovascular: Yes: WNL, Regular Rate and Rhythm, S1, S2 Respiratory: Yes: Rales, Rhonchi Gastrointestinal: Yes: WNL, Normal Bowel Sounds, Soft ...Rectal Exam: Yes: Deferred Musculoskeletal: Yes: WNL Extremities: Yes: WNL Edema: Yes Edema: LLE: Trace, RLE: Trace Peripheral Pulses WNL: No Peripheral Pulses: Left Radial: 1+, Right Radial: 1+, Left Doralis Pedis: 1+, Right Dorsalis Pedis: 1+, Left Femoral: 1+, Right Femoral: 1+ Neurological: Yes: WNL, Alert, Oriented ...Motor Strength: WNL Psychiatric: Yes: WNL, Alert, Oriented Labs: CBC, BMP 02/25/19 07:35 02/25/19 07:35 Assessment/Plan The patient is a 48-year-old man, we've a history of diabetes, hypertension, diabetic neuropathy and retinopathy, chronic kidney disease, who was sentto the hospital from the eye doctor's office for poorly controlled hypertension. The patient is currently comfortable.He reports absolutely no symptoms. Denies chest pains and shortness of breath. No palpitations. there is no evidence of ischemia nor acute coronary syndrome. The blood pressures better controlled.Mild pulmonary congestion.Significant ower extremity edema which is not new. The patient is clinically and symptomatically improved. The blood pressures better controlled.Fluid status is improved. His breathing more comfortably. the echocardiogram showed that both ventricles are functioning normally. There was mild tricuspid regurgitation with mild pulmonary hypertension.No other clinically important findings noted on the echo. Switch to oral Lasix 40 mg 2 times a day tomorrow. Fluid and salt restrictions. Needs a renal diet. Continue the other medications as currently. No need for further cardiac workup at this point. please arrange for an outpatient follow-up visit with within one week of his discharge. Please do not hesitate to call us PRN.
--- NOTE | 2019-02-25 14:42 | DS ---
Physical Exam: SUBJECTIVE: Patient seen and examined at the bedside. no chest pain, no shortness of breath. OBJECTIVE: Patient is a 48 year old male with a significant past medical history of hypertension, diabetes HTN, DM, Neuropathy, CKD. Who presents to the ED for evaluation of elevated blood pressure. 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 He is also noted to have an increase of his creatinine on labs. Plan: hypertensive emergency, resolved. home meds called in renal failure, follow up with Dr Zepeda for monitoring of your renal function. Vital Signs Period Temp Pulse Resp BP Sys/Morris Pulse Ox Last 24 Hr 98 F-99.0 F 66-74 18-20 110-146/68-87 99 PHYSICAL EXAM GENERAL: The patient is awake, alert, and fully oriented, in no acute distress. HEAD: Normal with no signs of trauma. s/p right eye cataract surgery EYES: PERRL, extraocular movements intact, sclera anicteric, conjunctiva clear. No ptosis. ENT: Ears normal, nares patent, oropharynx clear without exudates, moist mucous membranes. NECK: Trachea midline, full range of motion, supple. LUNGS: Breath sounds equal, clear to auscultation bilaterally, no wheezes, no crackles, no accessory muscle use. HEART: Regular rate and rhythm, ABDOMEN: Soft, nontender, nondistended, normoactive bowel sounds, no guarding, no rebound, no hepatosplenomegaly, no masses. EXTREMITIES: +3 edema bilaterally with some dried scabs on anterior legs. NEUROLOGICAL: Normal speech, gait steady with cane PSYCH: Normal mood, normal affect. LABS Laboratory Results - last 24 hr 02/24/19 02/24/19 02/24/19 16:00 16:00 16:48 WBC RBC Hgb Hct MCV MCH MCHC RDW Plt Count MPV Absolute Neuts (auto) Neutrophils % Lymphocytes % Monocytes % Eosinophils % Basophils % Nucleated RBC % Sodium Potassium Chloride Carbon Dioxide Anion Gap BUN Creatinine Est GFR (CKD-EPI)AfAm Est GFR (CKD-EPI)NonAf POC Glucometer 245 Random Glucose Calcium Magnesium Total Bilirubin AST ALT Alkaline Phosphatase Total Protein Albumin Urine Color Yellow Urine Appearance Clear Urine pH 5.5 Ur Specific Byron 1.012 Urine Protein 3+ H Urine Glucose (UA) 1+ H Urine Ketones Negative Urine Blood 1+ H Urine Nitrite Negative Urine Bilirubin Negative Urine Urobilinogen 0.2 Ur Leukocyte Esterase Negative Urine WBC (Auto) 1 Urine RBC (Auto) 2 Urine Casts (Auto) 5 U Epithel Cells (Auto) 1.1 Urine Bacteria (Auto) 1.4 U Random Total Protein 247.4 H Urine Creatinine 54.0 Protein/Creatinin Ratio 4.6 02/24/19 02/25/19 02/25/19 21:22 05:47 07:35 WBC RBC Hgb Hct MCV MCH MCHC RDW Plt Count MPV Absolute Neuts (auto) Neutrophils % Lymphocytes % Monocytes % Eosinophils % Basophils % Nucleated RBC % Sodium 139 Potassium 4.2 Chloride 111 H Carbon Dioxide 20 L Anion Gap 8 BUN 58.9 H Creatinine 4.3 H Est GFR (CKD-EPI)AfAm 17.86 Est GFR (CKD-EPI)NonAf 15.41 POC Glucometer 271 193 Random Glucose 185 H Calcium 7.6 L Magnesium 2.1 Total Bilirubin 0.2 AST 7 L ALT 11 L Alkaline Phosphatase 75 Total Protein 5.0 L Albumin 1.9 L Urine Color Urine Appearance Urine pH Ur Specific Byron Urine Protein Urine Glucose (UA) Urine Ketones Urine Blood Urine Nitrite Urine Bilirubin Urine Urobilinogen Ur Leukocyte Esterase Urine WBC (Auto) Urine RBC (Auto) Urine Casts (Auto) U Epithel Cells (Auto) Urine Bacteria (Auto) U Random Total Protein Urine Creatinine Protein/Creatinin Ratio 02/25/19 02/25/19 07:35 12:17 WBC 6.3 RBC 2.81 L Hgb 8.5 L Hct 25.8 L MCV 91.7 MCH 30.1 MCHC 32.8 RDW 13.5 Plt Count 183 MPV 8.1 Absolute Neuts (auto) 4.1 Neutrophils % 64.9 Lymphocytes % 20.9 Monocytes % 7.9 Eosinophils % 5.4 H Basophils % 0.9 Nucleated RBC % 0 Sodium Potassium Chloride Carbon Dioxide Anion Gap BUN Creatinine Est GFR (CKD-EPI)AfAm Est GFR (CKD-EPI)NonAf POC Glucometer 173 Random Glucose Calcium Magnesium Total Bilirubin AST ALT Alkaline Phosphatase Total Protein Albumin Urine Color Urine Appearance Urine pH Ur Specific Byron Urine Protein Urine Glucose (UA) Urine Ketones Urine Blood Urine Nitrite Urine Bilirubin Urine Urobilinogen Ur Leukocyte Esterase Urine WBC (Auto) Urine RBC (Auto) Urine Casts (Auto) U Epithel Cells (Auto) Urine Bacteria (Auto) U Random Total Protein Urine Creatinine Protein/Creatinin Ratio HOSPITAL COURSE: Date of Admission:02/23/19 Date of Discharge: 02/25/19 Minutes to complete discharge: 60 Discharge Summary Problems reviewed: Yes Reason For Visit: DIABETES MELLITUS,PLEURAL EFFUSION,HYPERTENSION Current Active Problems HTN (hypertension) (Acute) Hypertensive emergency (Acute) Leg edema (Acute) Renal insufficiency (Acute) Condition: Good - Instructions Diet, Activity, Other Instructions: Mr Richter: You will be sent home today. You were admitted for hypertension and worsening kidney failure. During your hospital stay, you were seen by both the woodworking machinist and the kidney specialist. Here are our recommendations: Hypertension Having high blood pressure can put you at risk for a stroke or cardiac arrest. It is important that you take care of your blood pressure. we will be sending you home with a blood pressure cuff that is easy for you to use. Please arrange for an outpatient follow-up visit with within one week of his discharge by calling his office for a follow up appointment Chronic Kidney Disease Close monitoring with Dr. Zepeda. Call him for an appointment early next week. Take these medications as follows for your high blood pressure: Hydralazine 25mg THREE TIMES PER DAY AT 8AM, 3PM AND 8PM Toprol XL 50mg ONCE A DAY AT 8AM STOP TAKING NORVASC Take this medication for cholesterol: Lipitor 10mg AT BEDTIME Take this medication for lower leg swelling: Lasix 40mg TWICE per day at 8am and 8pm -start tomorrow on 02/26/19. Continue taking your home diabetic medications as you have been doing. NEXT STEPS: Please see your primary care doctor for a post hospital visit Please see Dr. Zepeda to keep a close eye on your renal (kidney) function especially on Lasix Thank you for allowing us to care for you. Questions? I am available all weekend, call me if you have questions on any of your medications. Maribel Tovar NP [facility] [phone] Referrals: Irineo Hutchison MD [Primary Care Provider] - Paula Zepeda MD [Staff Physician] - Bayron Cm MD [Staff Physician] - Disposition: VNS/HOME HEALTH CARE - Home Medications Comprehensive Discharge Medication List: Ambulatory Orders Atorvastatin Ca [Lipitor] 10 mg PO HS #30 tablet MDD 1 10/22/17 Lancets [Lancets Thin] 1 each MC ACHS #120 each MDD 4 10/22/17 Amlodipine Besylate 10 mg PO DAILY 01/06/19 Insulin Glargine,Hum.rec.anlog [Basaglar Kwikpen U-100] 100 unit SQ ASDIR Metoprolol Succinate [Toprol XL -] 25 mg PO BID #60 tab.sr.24h 01/11/19 Problem List - Problems (1) Hypertensive emergency Assessment/Plan: resolved continue hydralazine TID, toprol daily lasix BID follow up with Dr. cm Code(s): I16.1 - HYPERTENSIVE EMERGENCY (2) Leg edema Assessment/Plan: improving on lasix bid continue lasix 40mg BID with outpatient f/u to monitor kidney function K is stable Code(s): R60.0 - LOCALIZED EDEMA (3) Renal insufficiency Assessment/Plan: creatinine 4.[address] Zepeda as an outpatient K is stable on lasix 40mg bid Code(s): N28.9 - DISORDER OF KIDNEY AND URETER, UNSPECIFIED (4) JAIRO (acute kidney injury) Code(s): N17.9 - ACUTE KIDNEY FAILURE, UNSPECIFIED (5) Cataract Assessment/Plan: s/p cataract surgery. follow up outpatient Code(s): H26.9 - UNSPECIFIED CATARACT This patient is new to me today: No Emergency Visit: Yes ED Registration Date: 02/23/19 Care time: The patient presented to the Emergency Department on the above date and was hospitalized for further evaluation of their emergent condition. Critical Care patient: No - Discharge Referral Referred to [facility] Med P.C.: No
[2019-02-25 14:53] VITALS: BP 145/96; PULSE 111; TEMP 98.7
--- NOTE | 2019-02-25 15:38 | PN ---
Progress Note, Physician History of Present Illness: Pt seen and examined at bedside. He is awake and alert. he denies shortness of breath. He does have lower ext edema. - Current Medication List Current Medications: Active Medications Atorvastatin Calcium (Lipitor -) 10 mg PO HS [facility] Last Admin: 02/24/19 21:56 Dose: 10 mg Furosemide (Lasix Injection -) 40 mg IVPUSH BID@0600,1400 [facility] Last Admin: 02/25/19 14:32 Dose: 40 mg Hydralazine HCl (Apresoline -) 25 mg PO TID [facility] Last Admin: 02/25/19 14:32 Dose: 25 mg Insulin Aspart (Novolog Vial Sliding Scale -) 1 vial SQ ACHS [facility]; Protocol Last Admin: 02/25/19 12:21 Dose: 2 units Metoprolol Succinate (Toprol Xl -) 50 mg PO DAILY [facility] Last Admin: 02/25/19 10:54 Dose: 50 mg - Objective Vital Signs: Vital Signs Temperature 98.7 F 02/25/19 14:00 Pulse Rate 111 H 02/25/19 14:00 Respiratory Rate 18 02/25/19 10:53 Blood Pressure 145/96 02/25/19 14:00 O2 Sat by Pulse Oximetry (%) 99 02/25/19 09:00 Constitutional: Yes: Calm HENT: Yes: Atraumatic Neck: Yes: Supple Cardiovascular: Yes: S1, S2 Respiratory: Yes: CTA Bilaterally Gastrointestinal: Yes: Normal Bowel Sounds, Soft Genitourinary: Yes: WNL Musculoskeletal: Yes: WNL Edema: Yes Edema: LLE: 2+, RLE: 2+ Neurological: Yes: Oriented Psychiatric: Yes: Oriented Labs: CBC, BMP 02/25/19 07:35 02/25/19 07:35 Problem List - Problems (1) HTN (hypertension) Code(s): I10 - ESSENTIAL (PRIMARY) HYPERTENSION Qualifiers: Hypertension type: unspecified Qualified Code(s): I10 - Essential (primary ) hypertension (2) Hypertensive emergency Code(s): I16.1 - HYPERTENSIVE EMERGENCY (3) Leg edema Code(s): R60.0 - LOCALIZED EDEMA (4) JAIRO (acute kidney injury) Code(s): N17.9 - ACUTE KIDNEY FAILURE, UNSPECIFIED Assessment/Plan Current Medications Generic Name Dose Route Start Last Admin Trade Name Freq PRN Reason Stop Dose Admin Atorvastatin Calcium 10 mg 02/23/19 23:15 02/24/19 21:56 Lipitor - PO 10 mg HS ELOISA Administration Furosemide 40 mg 02/25/19 06:00 02/25/19 14:32 Lasix Injection - IVPUSH 40 mg BID@0600,1400 ELOISA Administration Hydralazine HCl 25 mg 02/24/19 22:00 02/25/19 14:32 Apresoline - PO 25 mg TID ELOISA Administration Insulin Aspart 1 vial 02/23/19 23:15 02/25/19 12:21 Novolog Vial Sliding Scale - SQ 2 units ACHS ELOISA Administration Protocol Metoprolol Succinate 50 mg 02/25/19 10:00 02/25/19 10:54 Toprol Xl - PO 50 mg DAILY ELOISA Administration Selected Entries 02/25/19 02/25/19 10:53 14:00 Blood Pressure 136/78 145/96 Laboratory Tests 02/24/19 02/24/19 16:00 16:00 Urine Protein 3+ H Protein/Creatinin Ratio 4.6 Impression 1. CKD with acute component 2. DM 3. HTN 4. proteinuria 5. microscopic hematuria 6. volume overload Plan - can change to po lasix - cont bp meds - bp is improved - pt with progressive ckd - will need close outpt follow up
== END 2019-02-25 15:50 | disposition home health service (06) | DRG 199 ==
LOC: JER 17:48 → JERBED 18:53 → J4W 22:31
PROVIDERS: ADMIT Internal Medicine; ATTEND Nurse Practitioner Family
DX: I16.1 Hypertensive emergency (principal); E87.70 Fluid overload, unspecified; E11.40 Type 2 diabetes mellitus with diabetic neuropathy, unspecified; E11.319 Type 2 diabetes mellitus with unspecified diabetic retinopathy without macular edema; J90 Pleural effusion, not elsewhere classified; N17.9 Acute kidney failure, unspecified; I12.9 Hypertensive chronic kidney disease with stage 1 through stage 4 chronic kidney disease, or unspecified chronic kidney disease; E11.22 Type 2 diabetes mellitus with diabetic chronic kidney disease; N18.9 Chronic kidney disease, unspecified; D63.8 Anemia in other chronic diseases classified elsewhere; E11.65 Type 2 diabetes mellitus with hyperglycemia; R60.0 Localized edema; R31.29 Other microscopic hematuria
CPT/HCPCS: 36415; 71045-TC-FY; 80048; 80053; 80061; 81003; 82570; 82962; 83036; 83721; 83735; 83880; 84100; 84156; 84443; 84484; 85025; 93005; 93010; 93306-TC; 99285-25; Q2036

== ENCOUNTER 2019-03-18 18:13 | Inpatient (IN) | payer OTHER ==
--- NOTE | 2019-03-18 18:48 | PDOC ---
History of Present Illness - General Chief Complaint: Revisit, Lab Variance Stated Complaint: LOW OXYGEN LEVEL Time Seen by Provider: 03/18/19 18:38 - History of Present Illness Initial Comments: Rashawn Gonsales is a 48yo man with a PMH of HTN, DM, CKD, discharged from [facility] this afternoon after admission for CKD exacerbation requiring dialysis, hyperkalemia, pulmonary edema. He reports that he was discharged to [facility] for dialysis today. On arrival to [facility], he was told that his oxygen levels were low, and he was sent to the ED for management. Currently, Mr Gonsales reports that he is tired and has low back pain (present during his recent admission). He denies any shortness of breath, chest pain, upper back pain, lightheadedness, or other current symptoms. He states that he has felt similarly tired after every dialysis session so far. Past History - Past Medical History Allergies/Adverse Reactions: Allergies Allergy/AdvReac Type Severity Reaction Status Date / Time No Known Allergies Allergy Verified 03/18/19 18:34 Home Medications: Ambulatory Orders Ergocalciferol (Vitamin D2) [Vitamin D2] 50,000 unit PO 03/18/19 Insulin Glargine,Hum.rec.anlog [Lantus] 100 unit SQ DAILY 03/18/19 Insulin Lispro [Humalog] 100 unit SQ QID 03/18/19 Ketorolac 0.5% Eye Drop 1 drop OP DAILY 03/18/19 Losartan Potassium 50 mg PO DAILY 03/18/19 Nifedipine [Procardia Xl] 90 mg PO DAILY 03/18/19 Ofloxacin 0.3% Ophth Soln [Ocuflox 0.3% Eye Drops -] 1 drop OP DAILY 03/18/19 Polyethylene Glycol 3350 17 gm PO DAILY 03/18/19 Prednisolone Acetate/Pf [Prednisolone Acet 1% Eye Drop] 5 ml OP DAILY 03/18/19 Rosuvastatin [Crestor -] 10 mg PO DAILY 03/18/19 Sennosides [Senna] 8.6 mg PO DAILY 03/18/19 Thiamine HCl [B-1] 100 mg PO DAILY 03/18/19 Timolol 0.5% [Timoptic 0.5%] 1 drop OD DAILY 03/18/19 Anemia: No Asthma: No Cancer: No Cardiac Disorders: No CVA: No COPD: No CHF: No Dementia: No Diabetes: Yes (IDDM) Dialysis: Yes (ESRD last dialysis today. R upper chest [place]) GI Disorders: No Disorders: Yes (JAIRO) HTN: Yes Hypercholesterolemia: Yes Liver Disease: No Psychiatric Problems: Yes (etoh abuse.) Seizures: Yes (episodes of bradycardia w/seizure like activity) Thyroid Disease: No - Surgical History Abdominal Surgery: No Appendectomy: No Cardiac Surgery: No Cholecystectomy: No Lung Surgery: No Neurologic Surgery: No Orthopedic Surgery: No - Immunization History Immunization Up to Date: Yes - Psycho Social/Smoking Cessation Hx Smoking History: Unknown if ever smoked Have you smoked in the past 12 months: No Hx Alcohol Use: No Drug/Substance Use Hx: Yes (hx of etoh abuse.) Substance Use Type: None Hx Substance Use Treatment: No *Physical Exam - Vital Signs Last Vital Signs Temp Pulse Resp BP Pulse Ox 97.0 F L 72 16 112/67 92 L 03/18/19 18:15 03/18/19 18:15 03/18/19 18:15 03/18/19 18:15 03/18/19 18:15 ED Treatment Course - LABORATORY CBC & Chemistry Diagram: 03/18/19 19:30 03/18/19 19:30 Medical Decision Making - Medical Decision Making 03/18/19 18:48 Rashawn Gonsales is a 48yo man with a PMH of HTN, DM, CKD, discharged from [facility] this afternoon after admission for CKD exacerbation requiring dialysis, hyperkalemia, pulmonary edema, who presents from [facility] with hypoxia. He denies any SOB, chest pain, lightheadedness, or other symptoms other than generalized fatigue after dialysis. - Sats between 85-95% on RA during exam. Scattered diffuse wheezing. Concerning for recurrent pulmonary edema - Duoneb for wheezing - CXR - Will likely need repeat labs. 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 Report that he was hypotensive to the 70/30's on their admission assessment, sats in 70's on room air. Pt was very sleepy at that time and unable to provide information. She states that she requested that EMS take him back to [place] as he was just discharged. - CBC, CMP, EKG, trop, CXR, ABG for evaluation 03/18/19 20:55 - Labs completed. Notable for BUN over 5379, markedly elevated but given ESRD may be unreliable - BUN/Cr 25/2.6. Potassium WNL. No need for urgent dialysis - ABG w/ O2 only 83 on 4L by NC and following nebs. CO2 53, elevated - Spoke to Dr Osorio, renal team will see pt tomorrow 03/18/19 21:45 - CT completed. Reviewed in ED. Appears to be b/l pleural effusions, R>L. Radiology read pending - Will send microblog for admission 03/18/19 22:24 - Sign out given by Dr Huston to Dr Masterson. Will admit to Dr Curran's service Discussed with Dr Betzaida Thomas PGY2 Discharge - Discharge Information Problems reviewed: Yes Clinical Impression/Diagnosis: Hypoxia, Pleural effusion Condition: Fair - Admission Yes - Follow up/Referral - Patient Discharge Instructions - Post Discharge Activity
[2019-03-18] MEDS ORDERED: ALBUTEROL SO4 2.5/IPRATROPIUM 0.5 INH SOL 3 ML VIAL.NEB. NEB ONE ×4 (18:49→19:50)
[2019-03-18] MEDS ORDERED: ACETAMINOPHEN 325 MG TABLET (FP) PO ONE (18:49)
[2019-03-18] MEDS ORDERED: ACETAMINOPHEN 325 MG TABLET (FP) ONE (18:53)
--- NOTE | 2019-03-18 19:11 | PDOC ---
Attending Attestation - Resident Resident Name: Sara hTomas - ED Attending Attestation I have performed the following: I have examined & evaluated the patient, The case was reviewed & discussed with the resident, I agree w/resident's findings & plan - HPI HPI: 03/18/19 20:24 Pt was sent here from [facility], where he was noted to have low pulsox readings in the 70s. Here he desaturates to 70s. But on nasal cannula he goes up to 97-98% on 2L. Pt is afebrile and looks well. However he states, "I feel like shit." - Physicial Exam PE: 03/18/19 20:31 No pitting edema in the legs. Lungs clear breath sounds; some wheezing. Heart S1S2 RRR Abd soft NT ND Pt has multiple old rashes and scars on his skin. - Medical Decision Making 03/18/19 20:32 Pt will have labs and CT scan of the chest EKG NSR 03/18/19 20:55 Pt's WBC is not elevated Pt has no fever Pt has bnp is 5K Pt's anemia hasn't gotten worse. 03/18/19 22:33 Pt has moderate right sided effusion in pleura; small left pleural effusion He will be admitted for these effusions coupled with HYPOXEMIA; he will require another dialysis session tomorrow. Renal is aware. Pt will be on O2 tonight. 03/18/19 22:34 Hospitalists are aware. Heart Score/ECG Review - ECG Intrepretation Rhythm: Regular Rhythm - [place]: Normal - P and TN Delta Wave(s) Present: No WPW: No - QRS Poor R Wave Progression: No Q Wave Present: No - ST and T Early Repolarization: No Non Specific ST-T Wave changes: No Flattened T Waves: No Prolonged Q-T Interval: No - ECG Impressions Normal ECG: Yes Non-specific ST Elevation: No Ischemic Changes: No Bradycardia: No Torsades john Pointes: No
[2019-03-18 19:56] LABS: BASO % 0.3 % (0-2.0); HEMATOCRIT 27.8 % (35.4-49); HEMOGLOBIN 8.9 GM/dL (11.7-16.9); LYMPH % 9.3 % (8-40); MCH 29.8 pg (25.7-33.7); MEAN CELL VOLUME 93.2 fl (80-96); MEAN PLT VOLUME 9.4 fl (7.5-11.1); MONO % 6.6 % (3.8-10.2); NEUT % 82.8 % (42.8-82.8); PLATELET COUNT 125 K/MM3 (134-434); RBC 2.98 M/mm3 (4.00-5.60); RDW 13.2 % (11.9-15.9); WHITE BLOOD COUNT 11.4 K/mm3 (4.0-10.0)
[2019-03-18 19:56] LABS: ARTERIAL BLD GAS O2 SATURATION 93.4 % (95-98); ARTERIAL BLOOD GAS BASE EXCESS 4.5 meq/l (-2-2); ARTERIAL BLOOD GAS PCO2 53.2 mmHg (35-45); ARTERIAL BLOOD GAS pH 7.37 (7.35-7.45)
[2019-03-18 20:00] LABS: ARTERIAL BLOOD GAS PO2 83.7 mmHg (80-100)
[2019-03-18 20:01] LABS: ALLENS TEST POSITIVE
[2019-03-18 20:45] LABS: MAGNESIUM 2.3 mg/dL (1.8-2.4); N-TERMINAL BNP 5279.3 pg/ml (5-125)
[2019-03-18 20:47] LABS: ALBUMIN 2.6 g/dl (3.4-5.0); BILIRUBIN,TOTAL 0.1 mg/dL (0.2-1); BLOOD UREA NITROGEN 25.4 mg/dL (7-18); CALCIUM 7.9 mg/dL (8.5-10.1); CREATININE 2.6 mg/dL (0.55-1.3); POTASSIUM 4.4 mmol/L (3.5-5.1); TOT PROT 6.8 g/dl (6.4-8.2)
--- NOTE | 2019-03-18 21:59 | PN ---
Teaching Attending Note Name of Resident: Manasa Masterson ATTENDING PHYSICIAN STATEMENT I saw and evaluated the patient. I reviewed the resident's note and discussed the case with the resident. I agree with the resident's findings and plan as documented. SUBJECTIVE: Patient is a 48 year old man with a PMH of HTN, NIDDM, Cataract surgery, Diabetic neuropathy and retinopathy and CKD, discharged from [facility] this afternoon after admission for CKD exacerbation, hyperkalemia and pulmonary edema, requiring hemodialysis. He reports that he was discharged to [facility] for dialysis today. On arrival to [facility], he was told that his oxygen levels were low, and he was sent to the ER for evaluation. Currently, Mr Gonsales reports that he is tired and has low back pain (present during his recent admission). He denies any shortness of breath, chest pain, upper back pain, lightheadedness, nausea, vomiting, diarrhea, headache or palpitations. He states that he has felt similarly tired after every dialysis session so far. Denies tobacco, alcohol or illicit drug use. No recent travels. FH of DM. OBJECTIVE: Alert Vital Signs Period Temp Pulse Resp BP Sys/Morris Pulse Ox Last 24 Hr 97.0 F 72-92 16-16 112/67 92-96 HEENT: No Jaundice, eye redness or discharge, PERRLA, EOMI. Normocephalic, atraumatic. External ears are normal and hearing is grossly intact. No nasal discharge. Neck: Supple, nontender. No palpable adenopathy or thyromegaly. No JVD Chest: Good effort. Right chest permacath. Clear to auscultation and percussion. Heart: Regular. No S3, rub or murmur Abdomen: Not distended, soft, nontender and no HSM. No rebound or guarding. Normal bowel sounds. Ext: Peripheral pulses intact. No leg edema. Skin: Warm and dry. No petechiae, rash or ecchymosis. Neuro: Alert. Oriented x3. CN 2-12 grossly intact. Sensation grossly intact in all four extremities and DTR are symmetric. Psych: Appropriate mood and affect. Good insight. Home Medications Medication Instructions Recorded Ergocalciferol (Vitamin D2) 50,000 unit PO 03/18/19 [Vitamin D2] Insulin Glargine,Hum.rec.anlog 100 unit SQ DAILY 03/18/19 [Lantus] Insulin Lispro [Humalog] 100 unit SQ QID 03/18/19 Ketorolac 0.5% Eye Drop 1 drop OP DAILY 03/18/19 Losartan Potassium 50 mg PO DAILY 03/18/19 Nifedipine [Procardia Xl] 90 mg PO DAILY 03/18/19 Ofloxacin 0.3% Ophth Soln [Ocuflox 1 drop OP DAILY 03/18/19 0.3% Eye Drops -] Polyethylene Glycol 3350 17 gm PO DAILY 03/18/19 Prednisolone Acetate/Pf 5 ml OP DAILY 03/18/19 [Prednisolone Acet 1% Eye Drop] Rosuvastatin [Crestor -] 10 mg PO DAILY 03/18/19 Sennosides [Senna] 8.6 mg PO DAILY 03/18/19 Thiamine HCl [B-1] 100 mg PO DAILY 03/18/19 Timolol 0.5% [Timoptic 0.5%] 1 drop OD DAILY 03/18/19 Abnormal Lab Results 03/18/19 03/18/19 03/18/19 19:24 19:30 19:30 WBC 11.4 H RBC 2.98 L Hgb 8.9 L Hct 27.8 L Plt Count 125 L D Absolute Neuts (auto) 9.5 H ABG pCO2 at Pt Temp 53.2 H ABG HCO3 30.0 H ABG O2 Sat (Measured) 93.4 L ABG Base Excess 4.5 H Sodium 135 L Chloride 97 L Anion Gap 7 L BUN 25.4 H Creatinine 2.6 H Random Glucose 249 H Calcium 7.9 L Total Bilirubin 0.1 L AST 46 H ALT 68 H CK-MB (CK-2) 7.8 H B-Natriuretic Peptide Albumin 2.6 L 03/18/19 19:30 WBC RBC Hgb Hct Plt Count Absolute Neuts (auto) ABG pCO2 at Pt Temp ABG HCO3 ABG O2 Sat (Measured) ABG Base Excess Sodium Chloride Anion Gap BUN Creatinine Random Glucose Calcium Total Bilirubin AST ALT CK-MB (CK-2) B-Natriuretic Peptide 5279.3 H Albumin ASSESSMENT AND PLAN: 1. ESRD with Hypoxia - Cause of hypoxia is unclear - may not be entirely due to pleural effusion. Also has CO2 retention on the ABG. Low BP that was present on arrival resolved. Chest CT shows bilateral pleural effusion (R>L). Hypoxia improved with nasal canula oxygen in the ER and he has been symptom free. Will consult Pulmonary to work up for sleep apnea. ECHO from 02/24/19 showed normal LV size, thickness and function. Patient has a permacath and is at risk for infection. In view of tachycardia and leukocytosis, will do blood cultures, repeat CBC and monitor rectal temperature. Will withhold antibiotics for now. Will consult nephrology and avoid nephrotoxic agents such as NSAIDS, aminoglycosides, contrast dyes and certain Alternative medicine products. Will continue comprehensive care for all of patients comorbid conditions. 2. Hypoalbuminemia - Possibly due to combined effects of malnutrition and inflammation associated with comorbid chronic conditions. Will ensure adequate dietary protein intake and also consult integration analyst. 3. Uncontrolled DM For now, we will hold the home diabetes drugs and implement sliding scale insulin regimen. Provide comprehensive diabetes care with patient teaching and counseling about the importance of adherence to prescribed diabetes regimen, euglycemia, eye care and foot care. 4. Anemia - Likely mainly due to CKD. Will do basic anemia work up including serial stool guaiacs, reticulocyte count and iron studies. Would benefit from Procrit therapy once iron replete. 5. Obesity Counseled on the risks associated with obesity. Will provide patient all the necessary assistance, counseling and positive reinforcement to facilitate weight loss. Consult integration analyst. 6. Hypertension - Restart suitable outpatient antihypertensive drugs when clinically appropriate. Revise regimen to ensure [id number] excellent BP control and branch credit counselor patient on the injurious effects of uncontrolled hypertension. Nonpharmacologic measures to control hypertension like weight loss , salt restriction and exercise discussed. Importance of adherence to treatment regimen and attainment of normotension emphasized. 7. DVT prophylaxis - Heparin 5000u sq tid. 8. Advance directives - Full code
--- NOTE | 2019-03-19 00:30 | HP ---
Admitting History and Physical - Admission Chief Complaint: SOB x1 day History of Present Illness: Pt is a 48 year old with PMHx of HTN, DM, ESRD -MWF, presenting for SOB with ambulation. Pt was sent from [facility] for sats in 70s on presentation after discharge from [facility] today. Per ED, pt presented around 4.33pm today with sats in 80s, BP-72/36, glu -305, Temp- 97.4. Pt had been admitted in [facility] from 03/02/19 for ESRD with hyperkalemia and pulmonary edema with initiation of dialysis. Per pt and daughter by bedside, pt had 1.5hrs of dialysis today(cut short due to low BP) from usual 3hr dialysis MW. During dialysis, he appeared altered and was unaware when he was transported to [facility]. Per records from [facility], pt had back pain requiring lumbar block, but became bradycardic and hypotensive prior to the procedure, after pt lost consciousness at [facility], with bowel/bladder incontinence. Pt was worked up in [facility] with neg CT/MRI ruling out stroke and neg EEG for seizure. After the episode of bradycardia at [facility], pt became aware, he was noted to become tachycardic and hypertensive with diastolic up to 100s. Due to the bradycardia, pt's metoprolol was stopped and he was advised against calcium channel blockers. Since being in the ED today, pt is alert and communicative on nasal cannular oxygen only complaining of back pain. He denies chest pain or cough, denies dysuria, or nausea. Per ED, they spoke with Dr Osorio who will see the pt in the am. 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 History Source: Patient, Family Member, Medical Record - Past Medical History Cardiovascular: Yes: HTN, Hyperlipdemia Renal/: Yes: Renal Inusuff Endocrine: Yes: Diabetes Mellitus (x 10 years ) - Past Surgical History Past Surgical History: Yes: Cataract Removal - Smoking History Smoking history: Unknown if ever smoked Have you smoked in the past 12 months: No - Alcohol/Substance Use Hx Alcohol Use: No History of Substance Use: reports: None - Social History Usual Living Arrangement: Yes: With Spouse Do you think of yourself as: Straight/Heterosexual ADL: Independent Occupation: [employer] History of Recent Travel: No Home Medications - Allergies Allergies/Adverse Reactions: Allergies Allergy/AdvReac Type Severity Reaction Status Date / Time No Known Allergies Allergy Verified 03/18/19 18:34 - Home Medications Home Medications: Ambulatory Orders Ergocalciferol (Vitamin D2) [Vitamin D2] 50,000 unit PO 03/18/19 Insulin Glargine,Hum.rec.anlog [Lantus] 100 unit SQ DAILY 03/18/19 Insulin Lispro [Humalog] 100 unit SQ QID 03/18/19 Ketorolac 0.5% Eye Drop 1 drop OP DAILY 03/18/19 Losartan Potassium 50 mg PO DAILY 03/18/19 Nifedipine [Procardia Xl] 90 mg PO DAILY 03/18/19 Ofloxacin 0.3% Ophth Soln [Ocuflox 0.3% Eye Drops -] 1 drop OP DAILY 03/18/19 Polyethylene Glycol 3350 17 gm PO DAILY 03/18/19 Prednisolone Acetate/Pf [Prednisolone Acet 1% Eye Drop] 5 ml OP DAILY 03/18/19 Rosuvastatin [Crestor -] 10 mg PO DAILY 03/18/19 Sennosides [Senna] 8.6 mg PO DAILY 03/18/19 Thiamine HCl [B-1] 100 mg PO DAILY 03/18/19 Timolol 0.5% [Timoptic 0.5%] 1 drop OD DAILY 03/18/19 Family Medical History Family Hx Diabetes: Mother, Father Review of Systems - Review of Systems Constitutional: denies: Chills, Fever Eyes: reports: Blurred Vision (recent R eye cataract sx-3 weeks ago), Photophobia (R eye due to recent surgery) HENT: denies: Difficult Swallowing Neck: reports: No Symptoms Cardiovascular: reports: Edema. denies: Chest Pain, Palpitations Respiratory: denies: Cough, SOB on Exertion, Wheezing Gastrointestinal: denies: Abdominal Pain Genitourinary: denies: Burning, Dysuria Musculoskeletal: reports: No Symptoms Neurological: reports: Change in LOC. denies: Confusion, Pre-Existing Deficit Endocrine: reports: No Symptoms Hematology/Lymphatic: reports: No Symptoms Psychiatric: reports: No Symptoms Physical Examination Vital Signs: Vital Signs Temperature 98.1 F 03/18/19 23:53 Pulse Rate 109 H 03/18/19 23:53 Respiratory Rate 14 03/18/19 23:53 Blood Pressure 162/92 03/18/19 23:53 O2 Sat by Pulse Oximetry (%) 97 03/18/19 23:53 Constitutional: Yes: No Distress (On nasal oxygen) Eyes: Yes: PERRL, Other (photophobia R eye) HENT: Yes: WNL Neck: Yes: WNL Cardiovascular: Yes: Tachycardia, Murmur (2/6 ejection murmur), S1, S2 Respiratory: Yes: Rales (Few R basal rales) Gastrointestinal: Yes: Soft. No: Tenderness ...Rectal Exam: Yes: WNL Renal/: No: Nunn Present Breast(s): Yes: WNL Musculoskeletal: Yes: Other (b/l pitting pedal edema) Edema: LLE: 1+, RLE: 1+ Peripheral Pulses WNL: Yes Integumentary: Yes: Rash (healed rash over shins b/l L>R) Neurological: Yes: Alert, Oriented. No: Confusion ...Motor Strength: WNL Psychiatric: Yes: Alert, Oriented Labs: CBC, BMP 03/18/19 19:30 03/18/19 19:30 Imaging - Results Chest X-ray: Report Reviewed, Image Reviewed Assessment/Plan Ambulatory Orders Ergocalciferol (Vitamin D2) [Vitamin D2] 50,000 unit PO 03/18/19 Insulin Glargine,Hum.rec.anlog [Lantus] 100 unit SQ DAILY 03/18/19 Insulin Lispro [Humalog] 100 unit SQ QID 03/18/19 Ketorolac 0.5% Eye Drop 1 drop OP DAILY 03/18/19 Losartan Potassium 50 mg PO DAILY 03/18/19 Nifedipine [Procardia Xl] 90 mg PO DAILY 03/18/19 Ofloxacin 0.3% Ophth Soln [Ocuflox 0.3% Eye Drops -] 1 drop OP DAILY 03/18/19 Polyethylene Glycol 3350 17 gm PO DAILY 03/18/19 Prednisolone Acetate/Pf [Prednisolone Acet 1% Eye Drop] 5 ml OP DAILY 03/18/19 Rosuvastatin [Crestor -] 10 mg PO DAILY 03/18/19 Sennosides [Senna] 8.6 mg PO DAILY 03/18/19 Thiamine HCl [B-1] 100 mg PO DAILY 03/18/19 Timolol 0.5% [Timoptic 0.5%] 1 drop OD DAILY 03/18/19 Assessment/Plan Pt is a 48 year old with PMHx of HTN, DM, ESRD -MWF, presenting from [facility] for SOB and hypotension following discharge from [facility] after recent initiation of dialysis #Acute hypoxic hypercapnic respiratory failure Unclear etiology could be secondary to MANDEEP Supplemental O2 Bipap as needed Pulm consult #Hypotension Noted during dialysis, could be in setting of rapid cellular shifts of fluid vs Sepsis Dialysis shortened, nephro to see #ESRD-MWF Pt got half time of dialysis today due to hypotension 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 - New Patient This patient is new to me today: Yes Date on this admission: 03/18/19 - Critical Care Critical Care patient: No ATTENDING PHYSICIAN STATEMENT I saw and evaluated the patient. I reviewed the resident's note and discussed the case with the resident. I agree with the resident's findings and plan as documented. SUBJECTIVE: OBJECTIVE: ASSESSMENT AND PLAN:
[2019-03-19 01:28] LABS: BASO % 0.5 % (0-2.0); EOS % 0.5 % (0-4.5); HEMATOCRIT 24.5 % (35.4-49); LYMPH % 11.7 % (8-40); MCH 30.3 pg (25.7-33.7); MCHC 32.6 g/dl (32.0-35.9); MEAN CELL VOLUME 92.8 fl (80-96); MEAN PLT VOLUME 8.3 fl (7.5-11.1); MONO % 7.9 % (3.8-10.2); NEUT % 79.4 % (42.8-82.8); PLATELET COUNT 91 K/MM3 (134-434); RBC 2.64 M/mm3 (4.00-5.60); RDW 13.2 % (11.9-15.9); WHITE BLOOD COUNT 8.9 K/mm3 (4.0-10.0)
[2019-03-19 04:09] VITALS: BMI 26.6
[2019-03-19] MEDS: HEPARIN NA (PORCINE) 5,000 UNITS/ML 1ML VIAL SQ SCH ×3 (06:10→21:48)
[2019-03-19] MEDS: INSULIN SLIDING SCALE (NOVOLOG) 1 VIAL SQ SCH ×4 (06:10→21:50)
[2019-03-19] MEDS ORDERED: ACETAMINOPHEN 1000 MG/100 ML VIAL (NON FORMULARY) IVPB ONE (06:30)
[2019-03-19 08:55] LABS: BASO % 0.7 % (0-2.0); EOS % 1.6 % (0-4.5); HEMATOCRIT 24.5 % (35.4-49); HEMOGLOBIN 8.1 GM/dL (11.7-16.9); LYMPH % 14.1 % (8-40); MCH 30.3 pg (25.7-33.7); MEAN CELL VOLUME 91.8 fl (80-96); MEAN PLT VOLUME 7.8 fl (7.5-11.1); MONO % 7.6 % (3.8-10.2); PLATELET COUNT 113 K/MM3 (134-434); RBC 2.67 M/mm3 (4.00-5.60); RDW 13.3 % (11.9-15.9); WHITE BLOOD COUNT 8.4 K/mm3 (4.0-10.0)
[2019-03-19 09:19] LABS: ALBUMIN 2.5 g/dl (3.4-5.0); BILIRUBIN,TOTAL 0.1 mg/dL (0.2-1); BLOOD UREA NITROGEN 35.1 mg/dL (7-18); CALCIUM 7.9 mg/dL (8.5-10.1); CREATININE 3.4 mg/dL (0.55-1.3); MAGNESIUM 2.5 mg/dL (1.8-2.4); PHOSPHOROUS 4.2 mg/dL (2.5-4.9); POTASSIUM 4.2 mmol/L (3.5-5.1); TOT PROT 6.3 g/dl (6.4-8.2)
[2019-03-19] MEDS ORDERED: PT OWN MED DRAWER 7, Y5N ONE (09:27)
[2019-03-19] MEDS: OFLOXACIN 0.3% OPHTHALMIC SOLUTION 5 ML BOTTLE OU SCH ×4 (09:33→21:52)
[2019-03-19] MEDS: THIAMINE HCL 100 MG TABLET (FP) PO SCH (09:33)
[2019-03-19] MEDS: TIMOLOL 0.5% OPHTHALMIC SOL 5 ML BOTTLE OD SCH ×3 (09:34→21:53)
[2019-03-19] MEDS: prednisoLONE ACETATE 1% OPHTH SUSP 5 ML BOTTLE OU SCH ×2 (09:34→21:53)
[2019-03-19] MEDS ORDERED: PATIENT'S OWN MEDICATION (NON-FORMULARY) (Prednisolone Acetate/Pf [Prednisolone Acet 1% Ey OP SCH (10:00)
--- NOTE | 2019-03-19 10:21 | PN ---
Progress Note (short form) - Note Progress Note: Patient is having dialysis, as per patient , was just discharged from [facility] and was going to rehab. Ro, on the road, patient had a few second of unresponsive and was brought in to the hospital for further f/u , as per patient , had a similar episode in the [facility] where was hospitalized for 2 weeks with detailed w/u but nothing was found, and was discharged to rehab. Vital Signs Temperature 101 F H 03/19/19 06:00 Pulse Rate 102 H 03/19/19 06:00 Respiratory Rate 20 03/19/19 06:00 Blood Pressure 147/88 03/19/19 06:00 O2 Sat by Pulse Oximetry (%) 94 L 03/19/19 05:26 GENERAL: The patient is awake, alert, and fully oriented, in no acute distress. having a dialysis HEAD: Normal with no signs of trauma. EYES: PERRL, extraocular movements intact, sclera anicteric, conjunctiva clear. . ENT: Ears normal, oropharynx clear without exudates, moist mucous membranes. NECK: Trachea midline, full range of motion, supple. LUNGS: Breath sounds equal, clear to auscultation bilaterally, no wheezes, no crackles, no accessory muscle use. HEART: mild tachycardia , S1, S2 without murmur, rub or gallop. ABDOMEN: Soft, nontender, nondistended, normoactive bowel sounds, no guarding, no rebound, no hepatosplenomegaly, no masses. EXTREMITIES: 2+ pulses, warm, well-perfused, no edema. NEUROLOGICAL: Cranial nerves II through XII grossly intact. Normal speech, gait not observed. PSYCH: Normal mood, normal affect. SKIN: Warm, dry, normal turgor, no rashes or lesions noted CBCD WBC 8.4 K/mm3 (4.0-10.0) 03/19/19 08:20 RBC 2.67 M/mm3 (4.00-5.60) L 03/19/19 08:20 Hgb 8.1 GM/dL (11.7-16.9) L 03/19/19 08:20 Hct 24.5 % (35.4-49) L 03/19/19 08:20 MCV 91.8 fl (80-96) 03/19/19 08:20 MCHC 33.0 g/dl (32.0-35.9) 03/19/19 08:20 RDW 13.3 % (11.9-15.9) 03/19/19 08:20 Plt Count 113 K/MM3 (134-434) L D 03/19/19 08:20 MPV 7.8 fl (7.5-11.1) 03/19/19 08:20 CMP Sodium 137 mmol/L (136-145) 03/19/19 08:20 Potassium 4.2 mmol/L (3.5-5.1) 03/19/19 08:20 Chloride 99 mmol/L (98-107) 03/19/19 08:20 Carbon Dioxide 31 mmol/L (21-32) 03/19/19 08:20 Anion Gap 7 MMOL/L (8-16) L 03/19/19 08:20 BUN 35.1 mg/dL (7-18) H 03/19/19 08:20 Creatinine 3.4 mg/dL (0.55-1.3) H 03/19/19 08:20 Random Glucose 166 mg/dL (74-106) H 03/19/19 08:20 Calcium 7.9 mg/dL (8.5-10.1) L 03/19/19 08:20 Total Bilirubin 0.1 mg/dL (0.2-1) L 03/19/19 08:20 AST 21 U/L (15-37) 03/19/19 08:20 ALT 52 U/L (13-61) 03/19/19 08:20 Alkaline Phosphatase 104 U/L (45-117) 03/19/19 08:20 Total Protein 6.3 g/dl (6.4-8.2) L 03/19/19 08:20 Albumin 2.5 g/dl (3.4-5.0) L 03/19/19 08:20 CARDIAC ENZYMES Creatine Kinase 193 U/L (26-308) 03/18/19 19:30 Troponin I 0.03 ng/ml (0.00-0.05) 03/19/19 00:53 Current Medications Generic Name Dose Route Start Last Admin Trade Name Freq PRN Reason Stop Dose Admin Heparin Sodium (Porcine) 5,000 unit 03/19/19 06:00 03/19/19 06:10 Heparin - SQ 5,000 unit TID ELOISA Administration Insulin Aspart 1 vial 03/19/19 07:00 03/19/19 06:10 Novolog Vial Sliding Scale - SQ 4 units ACHS ELOISA Administration Protocol Ofloxacin 1 drop 03/19/19 10:00 03/19/19 09:33 Ocuflox 0.3% Eye Drops - OU 1 drop QID ELOISA Administration Prednisolone Acetate 1 drop 03/19/19 10:00 03/19/19 09:34 Pred Forte 1% - OU 1 drop BID ELOISA Administration Rosuvastatin Calcium 10 mg 03/19/19 22:00 Crestor - PO HS ELOISA Senna 2 tab 03/19/19 22:00 Senna - PO HS ELOISA Thiamine HCl 100 mg 03/19/19 10:00 03/19/19 09:33 Vitamin B1 - PO 100 mg DAILY ELOISA Administration Timolol Maleate 1 drop 03/19/19 10:00 03/19/19 09:34 Timoptic 0.5% OD Not Given BID [facility] Home Medications Medication Instructions Recorded Ergocalciferol (Vitamin D2) 50,000 unit PO 03/18/19 [Vitamin D2] Insulin Glargine,Hum.rec.anlog 100 unit SQ DAILY 03/18/19 [Lantus] Insulin Lispro [Humalog] 100 unit SQ QID 03/18/19 Ketorolac 0.5% Eye Drop 1 drop OP DAILY 03/18/19 Losartan Potassium 50 mg PO DAILY 03/18/19 Nifedipine [Procardia Xl] 90 mg PO DAILY 03/18/19 Ofloxacin 0.3% Ophth Soln [Ocuflox 1 drop OP DAILY 03/18/19 0.3% Eye Drops -] Polyethylene Glycol 3350 17 gm PO DAILY 03/18/19 Prednisolone Acetate/Pf 5 ml OP DAILY 03/18/19 [Prednisolone Acet 1% Eye Drop] Rosuvastatin [Crestor -] 10 mg PO DAILY 03/18/19 Sennosides [Senna] 8.6 mg PO DAILY 03/18/19 Thiamine HCl [B-1] 100 mg PO DAILY 03/18/19 Timolol 0.5% [Timoptic 0.5%] 1 drop OD DAILY 03/18/19 CT: bilateral small to moderate pleural effusions with associated compressive atelectasis. Assessment and plan: Patient is a 48yom with PMHx of HTN, DM, ESRD -MWF, was brought while he was getting transported to rehab, was found to have LOC for a few seconds. # ESRD on HD, MWF w ith pleural effusion needing HD , Dr Kingsley on the case # bilateral small to moderate pleural effusions with associated compressive atelectasis. having HD , discussed with Dr Kingsley # Acute respiratory failure with hypoxia s/p BIPap, continue prn # BL small to moderate pleural effusions with assoc.compressive atelectasis #HTN continue home meds. #DM BGM ACHS, ISS ACHS #recent cataract sx: Cont eye drops DVT Px:Hep sq Visit type - Emergency Visit Emergency Visit: Yes ED Registration Date: 03/18/19 Care time: The patient presented to the Emergency Department on the above date and was hospitalized for further evaluation of their emergent condition. - New Patient This patient is new to me today: Yes Date on this admission: 03/19/19 - Critical Care Critical Care patient: No - Discharge Referral Referred to [facility] Med P.C.: No
--- NOTE | 2019-03-19 11:14 | CON.NEP ---
Consult Consult Specialty:: nephrology Reason for Consultation:: esrd - History of Present Illness Chief Complaint: dyspnea, syncope History of Present Illness: This is a 48 year old diabetic hypertensive man who presents with hypoxia after having lost consciousness yesterday. He was dialyzed at [facility] yesterday and subsequently discharged to [facility]. There he lost consciousness and was transferred to this hospital. He is currently on BiPap and states that he feels ok, but was told he had fluid in his lungs. Says everything happened fast yesterday and he does not know why he was transferred out of the hospital. He is seen as outpatient by Dr Zepeda. He was started on hemodialysis 2 weeks ago at [facility] where he went because he was having back pain. During a lumbar block he became bradycardic and had LOC - History Source History Provided By: Patient, Medical Record - Past Medical History Cardio/Vascular: Yes: HTN, Hyperlipdemia Renal/: Yes: Renal Inusuff Endocrine: Yes: Diabetes Mellitus (x 10 years ) - Past Surgical History Past Surgical History: Yes: Cataract Removal - Alcohol/Substance Use Hx Alcohol Use: No History of Substance Use: reports: None - Smoking History Smoking history: Unknown if ever smoked Have you smoked in the past 12 months: No - Social History Usual Living Arrangement: Alone ADL: Independent Occupation: [employer] History of Recent Travel: No Home Medications - Allergies Allergies/Adverse Reactions: Allergies Allergy/AdvReac Type Severity Reaction Status Date / Time No Known Allergies Allergy Verified 03/18/19 18:34 - Home Medications Home Medications: Ambulatory Orders Ergocalciferol (Vitamin D2) [Vitamin D2] 50,000 unit PO 03/18/19 Insulin Glargine,Hum.rec.anlog [Lantus] 100 unit SQ DAILY 03/18/19 Insulin Lispro [Humalog] 100 unit SQ QID 03/18/19 Ketorolac 0.5% Eye Drop 1 drop OP DAILY 03/18/19 Losartan Potassium 50 mg PO DAILY 03/18/19 Nifedipine [Procardia Xl] 90 mg PO DAILY 03/18/19 Ofloxacin 0.3% Ophth Soln [Ocuflox 0.3% Eye Drops -] 1 drop OP DAILY 03/18/19 Polyethylene Glycol 3350 17 gm PO DAILY 03/18/19 Prednisolone Acetate/Pf [Prednisolone Acet 1% Eye Drop] 5 ml OP DAILY 03/18/19 Rosuvastatin [Crestor -] 10 mg PO DAILY 03/18/19 Sennosides [Senna] 8.6 mg PO DAILY 03/18/19 Thiamine HCl [B-1] 100 mg PO DAILY 03/18/19 Timolol 0.5% [Timoptic 0.5%] 1 drop OD DAILY 03/18/19 Review of Systems - Review of Systems Constitutional: reports: No Symptoms Eyes: reports: No Symptoms HENT: reports: No Symptoms Neck: reports: No Symptoms Cardiovascular: reports: No Symptoms Respiratory: reports: No Symptoms Gastrointestinal: reports: No Symptoms Genitourinary: reports: No Symptoms Breasts: reports: No Symptoms Reported Musculoskeletal: reports: Back Pain Integumentary: reports: No Symptoms Neurological: reports: Change in LOC Endocrine: reports: No Symptoms Hematology/Lymphatic: reports: No Symptoms Psychiatric: reports: No Symptoms Nephrology Consult - Height Height: 5 ft 7 in - Weight Weight: 170 lb - BMI Body Mass Index (BMI): 26.6 - Lab Results CBC,BMP: CBC, BMP 03/19/19 08:20 03/19/19 08:20 Anion Gap: Anion Gap Anion Gap 7 MMOL/L (8-16) L 03/19/19 08:20 - Imaging Cat Scan: Report Reviewed (bilat effusions with atelectasis) - Physical Examination Vital Signs: Vital Signs Temperature 98.5 F 03/19/19 10:00 Pulse Rate 82 03/19/19 10:00 Respiratory Rate 18 03/19/19 10:00 Blood Pressure 144/82 03/19/19 10:00 O2 Sat by Pulse Oximetry (%) 94 L 03/19/19 05:26 Constitutional: Yes: Well Nourished, No Distress, Other (NIPPV) Eyes: Yes: WNL, Other (periorbital edema) HENT: Yes: WNL Neck: Yes: Trachea Midline Cardiovascular: Yes: Regular Rate and Rhythm Respiratory: Yes: Rales Gastrointestinal: Yes: Normal Bowel Sounds Renal/: Yes: WNL Musculoskeletal: Yes: WNL Extremities: Yes: WNL Edema: LLE: Trace, RLE: Trace Wound/Incision: Yes: Well Approximated Neurological: Yes: Alert, Oriented Psychiatric: Yes: Alert, Oriented Assessment/Plan IMPRESSION esrd likely secondary to dm/htn pleural effusions and compression atelcetasis had recent echo which showed good lvef PLAN will make arrangemets for hd should be seen by both cardio and pulm fluid restrict MV
[2019-03-19] MEDS ORDERED: SODIUM CHLORIDE 250 ML IV PRN (11:25)
--- NOTE | 2019-03-19 11:59 | CON.PULM ---
Consult Consult Specialty:: PULM/CCM Referred by:: Hospitalist Reason for Consultation:: SOB - History of Present Illness Chief Complaint: SOB & Hypotension History of Present Illness: 48 M, HTN, DM, ESRD -MWF (has had 6 total sessions) and SNF resident. Admitted via the ER due to hypoxemia to the 70s and SOB. Patient received only 1.5 hours of HD and it was stopped due to hypotension. He apparently developed AMS. Due to persistent hypoxemia he was placed on NIPPV support with good response. He is currently awake and alert. No travel history or sick contacts. No night sweats or hemoptysis. CT: bilateral small to moderate pleural effusions with associated compressive atelectasis. - History Source History Provided By: Patient Limitations to Obtaining History: No Limitations - Past Medical History Cardio/Vascular: Yes: HTN, Hyperlipdemia Pulmonary: No: Asthma, Bronchitis, COPD, O2 Dependent, Pneumonia, Previously Intubated, Pulmonary Embolus, Pulmonary Fibrosis, Sleep Apnea Renal/: Yes: Renal Inusuff Endocrine: Yes: Diabetes Mellitus (x 10 years ) - Past Surgical History Past Surgical History: Yes: Cataract Removal - Alcohol/Substance Use Hx Alcohol Use: No History of Substance Use: reports: None - Smoking History Smoking history: Unknown if ever smoked Have you smoked in the past 12 months: No - Social History Usual Living Arrangement: Alone ADL: Independent Occupation: [employer] History of Recent Travel: No Home Medications - Allergies Allergies/Adverse Reactions: Allergies Allergy/AdvReac Type Severity Reaction Status Date / Time No Known Allergies Allergy Verified 03/18/19 18:34 - Home Medications Home Medications: Ambulatory Orders Ergocalciferol (Vitamin D2) [Vitamin D2] 50,000 unit PO 03/18/19 Insulin Glargine,Hum.rec.anlog [Lantus] 100 unit SQ DAILY 03/18/19 Insulin Lispro [Humalog] 100 unit SQ QID 03/18/19 Ketorolac 0.5% Eye Drop 1 drop OP DAILY 03/18/19 Losartan Potassium 50 mg PO DAILY 03/18/19 Nifedipine [Procardia Xl] 90 mg PO DAILY 03/18/19 Ofloxacin 0.3% Ophth Soln [Ocuflox 0.3% Eye Drops -] 1 drop OP DAILY 03/18/19 Polyethylene Glycol 3350 17 gm PO DAILY 03/18/19 Prednisolone Acetate/Pf [Prednisolone Acet 1% Eye Drop] 5 ml OP DAILY 03/18/19 Rosuvastatin [Crestor -] 10 mg PO DAILY 03/18/19 Sennosides [Senna] 8.6 mg PO DAILY 03/18/19 Thiamine HCl [B-1] 100 mg PO DAILY 03/18/19 Timolol 0.5% [Timoptic 0.5%] 1 drop OD DAILY 03/18/19 Review of Systems - Review of Systems Constitutional: reports: Malaise. denies: Chills, Fever, Night Sweats Eyes: reports: No Symptoms HENT: reports: No Symptoms Neck: reports: No Symptoms Cardiovascular: reports: Shortness of Breath. denies: Chest Pain, Edema, Palpitations Respiratory: reports: Cough, Orthopnea, SOB, SOB on Exertion. denies: Hemoptysis, PND, Snoring, Wheezing Gastrointestinal: reports: No Symptoms Genitourinary: reports: No Symptoms Breasts: reports: No Symptoms Reported Musculoskeletal: reports: No Symptoms Integumentary: reports: No Symptoms Neurological: reports: Change in LOC, Confusion, Dizziness Endocrine: reports: No Symptoms Hematology/Lymphatic: reports: No Symptoms Psychiatric: reports: No Symptoms Physical Exam Vital Sings: Vital Signs Temperature 99 F 03/19/19 11:43 Pulse Rate 82 03/19/19 10:00 Respiratory Rate 18 03/19/19 10:00 Blood Pressure 144/82 03/19/19 10:00 O2 Sat by Pulse Oximetry (%) 100 03/19/19 09:00 Constitutional: Yes: No Distress Eyes: Yes: Conjunctiva Clear, EOM Intact HENT: Yes: Atraumatic, Normocephalic Neck: Yes: Supple, Trachea Midline Cardiovascular: Yes: Regular Rate and Rhythm Respiratory: Yes: Diminished, On BiPap, Rales, Rhonchi. No: Accessory Muscle Use, SOB, SOB on Exertion, Stridor, Tachypnea, Wheezes ...Inspection: Yes: WNL ...Clubbing: No Gastrointestinal: Yes: Normal Bowel Sounds, Soft Musculoskeletal: Yes: WNL Edema: No Peripheral Pulses WNL: Yes Integumentary: Yes: WNL Neurological: Yes: WNL, Alert, Oriented ...Motor Strength: WNL Psychiatric: Yes: WNL, Alert, Oriented Labs: CBC, BMP 03/19/19 08:20 03/19/19 08:20 ABG Results ABG pH 7.37 (7.35-7.45) 03/18/19 19:24 ABG pCO2 at Pt Temp 53.2 mmHg (35-45) H 03/18/19 19:24 ABG pO2 at Pt Temp 83.7 mmHg (80-100) 03/18/19 19:24 ABG HCO3 30.0 mmol/L (22-27) H 03/18/19 19:24 ABG O2 Sat (Measured) 93.4 % (95-98) L 03/18/19 19:24 ABG O2 Content No Result Required. 03/18/19 19:24 ABG Base Excess 4.5 meq/l (-2-2) H 03/18/19 19:24 Imaging - Results Chest X-ray: Report Reviewed, Image Reviewed Cat Scan: Report Reviewed, Image Reviewed Problem List - Problems (1) Acute respiratory failure with hypoxia Code(s): J96.01 - ACUTE RESPIRATORY FAILURE WITH HYPOXIA (2) Hypoxia Code(s): R09.02 - HYPOXEMIA (3) Pleural effusion Code(s): J90 - PLEURAL EFFUSION, NOT ELSEWHERE CLASSIFIED (4) Cataract Code(s): H26.9 - UNSPECIFIED CATARACT (5) Diabetes mellitus, insulin dependent (IDDM), uncontrolled Code(s): E10.65 - TYPE 1 DIABETES MELLITUS WITH HYPERGLYCEMIA (6) HTN (hypertension) Code(s): I10 - ESSENTIAL (PRIMARY) HYPERTENSION Qualifiers: Hypertension type: unspecified Qualified Code(s): I10 - Essential (primary ) hypertension Assessment/Plan NIPPV support as needed Can attempt transition to NC O2. Daily weights HD per Renal for volume removal Do not suspect respiratory tract infection so would monitor off ABX Will follow Thank you. Dr Bell
--- NOTE | 2019-03-19 15:44 | CON.CARD ---
Consult Consult Specialty:: Cardiology Reason for Consultation:: CHF/Pleural Effusions - History of Present Illness Chief Complaint: Presently comfortartable and receiving HD History of Present Illness: This is a 48 year old male with a PMH of HTN, DM, and ESRD on HD. He was sent from [facility] when he was found to have low O2 sats. He was recently admitted to [facility] 03/02/19 with hyperkalemia and pulmonary edema and received HD. Troponins are negative BNP is [address] 03/18/19 shows Small to moderate right pleural effusion and a small left sided pleural effusion Echocardiogram 02/14/19: Normal LV and RV size and function, mild TR. - Past Medical History Cardio/Vascular: Yes: HTN, Hyperlipdemia Pulmonary: No: Asthma, Bronchitis, COPD, O2 Dependent, Pneumonia, Previously Intubated, Pulmonary Embolus, Pulmonary Fibrosis, Sleep Apnea Renal/: Yes: Renal Inusuff Endocrine: Yes: Diabetes Mellitus (x 10 years ) - Past Surgical History Past Surgical History: Yes: Cataract Removal - Alcohol/Substance Use Hx Alcohol Use: No History of Substance Use: reports: None - Smoking History Smoking history: Unknown if ever smoked Have you smoked in the past 12 months: No - Social History Usual Living Arrangement: Alone ADL: Independent Occupation: [employer] History of Recent Travel: No Home Medications - Allergies Allergies/Adverse Reactions: Allergies Allergy/AdvReac Type Severity Reaction Status Date / Time No Known Allergies Allergy Verified 03/18/19 18:34 - Home Medications Home Medications: Ambulatory Orders Ergocalciferol (Vitamin D2) [Vitamin D2] 50,000 unit PO 03/18/19 Insulin Glargine,Hum.rec.anlog [Lantus] 100 unit SQ DAILY 03/18/19 Insulin Lispro [Humalog] 100 unit SQ QID 03/18/19 Ketorolac 0.5% Eye Drop 1 drop OP DAILY 03/18/19 Losartan Potassium 50 mg PO DAILY 03/18/19 Nifedipine [Procardia Xl] 90 mg PO DAILY 03/18/19 Ofloxacin 0.3% Ophth Soln [Ocuflox 0.3% Eye Drops -] 1 drop OP DAILY 03/18/19 Polyethylene Glycol 3350 17 gm PO DAILY 03/18/19 Prednisolone Acetate/Pf [Prednisolone Acet 1% Eye Drop] 5 ml OP DAILY 03/18/19 Rosuvastatin [Crestor -] 10 mg PO DAILY 03/18/19 Sennosides [Senna] 8.6 mg PO DAILY 03/18/19 Thiamine HCl [B-1] 100 mg PO DAILY 03/18/19 Timolol 0.5% [Timoptic 0.5%] 1 drop OD DAILY 03/18/19 Vital Signs: Vital Signs Temperature 99 F 03/19/19 11:43 Pulse Rate 88 03/19/19 15:28 Respiratory Rate 18 03/19/19 15:28 Blood Pressure 178/105 H 03/19/19 15:28 O2 Sat by Pulse Oximetry (%) 99 03/19/19 11:59 Constitutional: Yes: No Distress HENT: Yes: WNL Neck: Yes: WNL Respiratory: Yes: Dullness (Bibasilar) Gastrointestinal: Yes: Soft Cardiovascular: Yes: Regular Rate and Rhythm (NL S1S2, no MRHG) JVD: No Edema: LLE: Trace, RLE: Trace Neurological: Yes: Alert, Oriented - Other Data Labs, Other Data: CBC, BMP 03/19/19 08:20 03/19/19 08:20 Troponin, BNP 03/18/19 03/18/19 03/19/19 19:30 19:30 00:53 Troponin I 0.02 0.03 B-Natriuretic Peptide 5279.3 H Troponin, BNP 03/18/19 03/18/19 03/19/19 19:30 19:30 00:53 Troponin I 0.02 0.03 B-Natriuretic Peptide 5279.3 H Assessment/Plan 48 year old male with a PMH of HTN, HLD, DM, and ESRD on HD. He was sent from [facility] when he was found to have low O2 sats. He was recently admitted to [facility] 03/02/19 with hyperkalemia and pulmonary edema and received HD. Troponins are negative BNP is [address] 03/18/19 shows Small to moderate right pleural effusion and a small left sided pleural effusion Echocardiogram 02/14/19: Normal LV and RV size and function, mild TR. CHF Acute on chronic dialstolic Pleural Effusions and CHF should improve with dialysis, especially if negative balance can be achieved BP is elevated, would restart home meds Nifedipine XL 90 mg and Losartan 50 mg daily Continue rosuvastatin for HLD.
[2019-03-19] MEDS: LOSARTAN POTASSIUM 50 MG TABLET (FP) PO SCH (17:07)
[2019-03-19] MEDS ORDERED: INSULIN (NOVOLOG) ASPART 100 UNITS/ML 10ML VIAL ONE (17:21)
[2019-03-19] MEDS ORDERED: SENNOSIDES 8.6MG TABLET (FP) PO SCH (22:00)
[2019-03-19] MEDS ORDERED: ROSUVASTATIN CA 10 MG TABLET (FP) PO SCH (22:00)
--- NOTE | 2019-03-19 23:18 | EKG ---
Test Reason : Blood Pressure : / mmHG Vent. Rate : 091 BPM Atrial Rate : 091 BPM P-R Int : 112 ms QRS Dur : 096 ms QT Int : 384 ms P-R-T Axes : 054 065 086 degrees QTc Int : 472 ms NORMAL SINUS RHYTHM NORMAL ECG WHEN COMPARED WITH ECG OF 23-FEB-2019 17:47, NO SIGNIFICANT CHANGE WAS FOUND Confirmed by SUDARSHAN AUGUST MD ([id number]) on 03/19/2019 11:17:50 PM Referred By: Confirmed By:SUDARSHAN AUGUST MD
[2019-03-20] MEDS: NIFEdipine E.R. 90 MG TABLET (FP) PO SCH ×2 (04:42→11:54)
[2019-03-20] MEDS: HEPARIN NA (PORCINE) 5,000 UNITS/ML 1ML VIAL SQ SCH (06:13)
[2019-03-20] MEDS: INSULIN SLIDING SCALE (NOVOLOG) 1 VIAL SQ SCH ×2 (06:15→12:04)
--- NOTE | 2019-03-20 07:28 | PN ---
Physical Exam: SUBJECTIVE: Patient seen and examined at bedside no acute events overnight- patient states that he is feeling better; he feels his breathing has improved- he is not experiencing as much dyspnea on exertion as when he initially came in ; he denies any CP/N/V fevers or chills OBJECTIVE: Vital Signs Period Temp Pulse Resp BP Sys/Morris Pulse Ox Last 24 Hr 98.5 F-99.1 F 82-92 16-19 117-186/51-116 99-100 GENERAL: The patient is awake, alert, and fully oriented, in no acute distress. EYES: PEERLA; EOMI; no scleral icterus . NECK: no JVD; no lymphadenopthy LUNGS: CTA B/L; no rales, rhonchi or wheezing . HEART: Regular rate and rhythm, S1, S2 without murmur, rub or gallop. ABDOMEN: Soft, NT/ND +BS in all 4 quadrants EXTREMITIES: 2+ pulses, warm, well-perfused, no edema. PSYCH: Normal mood, normal affect. SKIN: Warm, dry, normal turgor, no rashes or lesions noted Laboratory Results - last 24 hr 03/19/19 03/19/19 03/19/19 08:20 08:20 11:40 WBC 8.4 RBC 2.67 L Hgb 8.1 L Hct 24.5 L MCV 91.8 MCH 30.3 MCHC 33.0 RDW 13.3 Plt Count 113 L D MPV 7.8 Absolute Neuts (auto) 6.4 Neutrophils % 76.0 Lymphocytes % 14.1 D Monocytes % 7.6 Eosinophils % 1.6 D Basophils % 0.7 Nucleated RBC % 0 Sodium 137 Potassium 4.2 Chloride 99 Carbon Dioxide 31 Anion Gap 7 L BUN 35.1 H Creatinine 3.4 H Est GFR (CKD-EPI)AfAm 23.72 Est GFR (CKD-EPI)NonAf 20.46 POC Glucometer 214 Random Glucose 166 H Calcium 7.9 L Phosphorus 4.2 Magnesium 2.5 H Total Bilirubin 0.1 L AST 21 ALT 52 Alkaline Phosphatase 104 Total Protein 6.3 L Albumin 2.5 L Blood Type Antibody Screen 03/19/19 03/19/19 03/19/19 13:00 17:09 21:46 WBC RBC Hgb Hct MCV MCH MCHC RDW Plt Count MPV Absolute Neuts (auto) Neutrophils % Lymphocytes % Monocytes % Eosinophils % Basophils % Nucleated RBC % Sodium Potassium Chloride Carbon Dioxide Anion Gap BUN Creatinine Est GFR (CKD-EPI)AfAm Est GFR (CKD-EPI)NonAf POC Glucometer 174 291 Random Glucose Calcium Phosphorus Magnesium Total Bilirubin AST ALT Alkaline Phosphatase Total Protein Albumin Blood Type A POSITIVE Antibody Screen Negative 03/20/19 06:14 WBC RBC Hgb Hct MCV MCH MCHC RDW Plt Count MPV Absolute Neuts (auto) Neutrophils % Lymphocytes % Monocytes % Eosinophils % Basophils % Nucleated RBC % Sodium Potassium Chloride Carbon Dioxide Anion Gap BUN Creatinine Est GFR (CKD-EPI)AfAm Est GFR (CKD-EPI)NonAf POC Glucometer 131 Random Glucose Calcium Phosphorus Magnesium Total Bilirubin AST ALT Alkaline Phosphatase Total Protein Albumin Blood Type Antibody Screen Active Medications Generic Name Dose Route Start Last Admin Trade Name Freq PRN Reason Stop Dose Admin Heparin Sodium (Porcine) 5,000 unit 03/19/19 06:00 03/20/19 06:13 Heparin - SQ 5,000 unit TID ELOISA Administration Sodium Chloride 250 mls @ 3,000 mls/hr 03/19/19 11:25 Normal Saline - IV 03/20/19 11:25 PRN PRN Hypotension during Dialysis Insulin Aspart 1 vial 03/19/19 07:00 03/20/19 06:15 Novolog Vial Sliding Scale - SQ Not Given ACHS ELOISA Protocol Losartan Potassium 50 mg 03/19/19 17:15 03/19/19 17:07 Cozaar - PO 50 mg DAILY ELOISA Administration Nifedipine 90 mg 03/20/19 04:20 03/20/19 04:42 Procardia Xl - PO 90 mg DAILY ELOISA Administration Ofloxacin 1 drop 03/19/19 10:00 03/19/19 21:52 Ocuflox 0.3% Eye Drops - OU Not Given QID ELOISA Prednisolone Acetate 1 drop 03/19/19 10:00 03/19/19 21:53 Pred Forte 1% - OU Not Given BID ELOISA Rosuvastatin Calcium 10 mg 03/19/19 22:00 03/19/19 21:48 Crestor - PO 10 mg HS ELOISA Administration Senna 2 tab 03/19/19 22:00 03/19/19 21:48 Senna - PO 2 tab HS ELOISA Administration Thiamine HCl 100 mg 03/19/19 10:00 03/19/19 09:33 Vitamin B1 - PO 100 mg DAILY ELOISA Administration Timolol Maleate 1 drop 03/19/19 10:00 03/19/19 21:53 Timoptic 0.5% OD Not Given BID ELOISA ASSESSMENT/PLAN: Pt is a 48 year old with PMHx of HTN, DM, ESRD -MWF, presenting from [facility] for SOB and hypotension following discharge from [facility] after recent initiation of dialysis #Acute hypoxic hypercapnic respiratory failure Unclear etiology Supplemental O2 Bipap as needed Pulm consult appreciated #Pleural effusions May be in setting of fluid overload in ESRD c/w HD montor hemodynamics pulm and cardo consult appreciated #Hypotension Noted during dialysis, however improved #ESRD-MWF recent initiation of dialysis (7 treatments total) Nephro conuslt appreciated #HTN restart patients home meds -nifedipine 90 XL daily -Cozaar 50 daily #DM BGM ACHS ISS ACHS #recent cataract sx Cont eye drops PPX Hep sq DM diet No standing fluids ATTENDING PHYSICIAN STATEMENT I saw and evaluated the patient. I reviewed the resident's note and discussed the case with the resident. I agree with the resident's findings and plan as documented. SUBJECTIVE: OBJECTIVE: ASSESSMENT AND PLAN:
[2019-03-20] MEDS: LOSARTAN POTASSIUM 50 MG TABLET (FP) PO SCH (11:52)
[2019-03-20] MEDS: prednisoLONE ACETATE 1% OPHTH SUSP 5 ML BOTTLE OU SCH (11:53)
[2019-03-20] MEDS: OFLOXACIN 0.3% OPHTHALMIC SOLUTION 5 ML BOTTLE OU SCH (11:54)
[2019-03-20] MEDS: THIAMINE HCL 100 MG TABLET (FP) PO SCH (11:55)
[2019-03-20] MEDS: TIMOLOL 0.5% OPHTHALMIC SOL 5 ML BOTTLE OD SCH (11:55)
--- NOTE | 2019-03-20 11:56 | PN ---
Progress Note (short form) - Note Progress Note: Feels overall better. NAD on RA. No acute events overnight. Intake & Output 03/17/19 03/18/19 03/19/19 03/20/19 23:59 23:59 23:59 23:59 Intake Total 1450 520 Output Total 800 300 Balance 650 220 Weight 200 lb 170 lb Last Vital Signs Temp Pulse Resp BP Pulse Ox 99 F 92 H 18 150/99 99 03/20/19 07:04 03/20/19 07:04 03/20/19 07:04 03/20/19 07:04 03/19/19 22:21 Active Medications Heparin Sodium (Porcine) (Heparin -) 5,000 unit SQ TID [facility] Last Admin: 03/20/19 06:13 Dose: 5,000 unit Sodium Chloride (Normal Saline -) 250 mls @ 3,000 mls/hr IV PRN PRN PRN Reason: Hypotension during Dialysis Stop: 03/20/19 11:25 Insulin Aspart (Novolog Vial Sliding Scale -) 1 vial SQ [facility]; Protocol Last Admin: 03/20/19 06:15 Dose: Not Given Losartan Potassium (Cozaar -) 50 mg PO DAILY [facility] Last Admin: 03/19/19 17:07 Dose: 50 mg Nifedipine (Procardia Xl -) 90 mg PO DAILY [facility] Last Admin: 03/20/19 04:42 Dose: 90 mg Ofloxacin (Ocuflox 0.3% Eye Drops -) 1 drop OU QID [facility] Last Admin: 03/19/19 21:52 Dose: Not Given Prednisolone Acetate (Pred Forte 1% -) 1 drop OU BID [facility] Last Admin: 03/19/19 21:53 Dose: Not Given Rosuvastatin Calcium (Crestor -) 10 mg PO HS [facility] Last Admin: 03/19/19 21:48 Dose: 10 mg Senna (Senna -) 2 tab PO HS [facility] Last Admin: 03/19/19 21:48 Dose: 2 tab Thiamine HCl (Vitamin B1 -) 100 mg PO DAILY [facility] Last Admin: 03/19/19 09:33 Dose: 100 mg Timolol Maleate (Timoptic 0.5%) 1 drop OD BID [facility] Last Admin: 03/19/19 21:53 Dose: Not Given Constitutional: Yes: No Distress Eyes: Yes: Conjunctiva Clear, EOM Intact HENT: Yes: Atraumatic, Normocephalic Neck: Yes: Supple, Trachea Midline Cardiovascular: Yes: Regular Rate and Rhythm Respiratory: Yes: Diminished. No: Accessory Muscle Use, SOB, SOB on Exertion, Stridor, Tachypnea, Wheezes ...Inspection: Yes: WNL ...Clubbing: No Gastrointestinal: Yes: Normal Bowel Sounds, Soft Musculoskeletal: Yes: WNL Edema: No Peripheral Pulses WNL: Yes Integumentary: Yes: WNL Neurological: Yes: WNL, Alert, Oriented ...Motor Strength: WNL Psychiatric: Yes: WNL, Alert, Oriented Labs: Laboratory Results - last 24 hr 03/19/19 03/19/19 03/19/19 13:00 17:09 21:46 POC Glucometer 174 291 Blood Type A POSITIVE Antibody Screen Negative 03/20/19 06:14 POC Glucometer 131 Blood Type Antibody Screen Problem List - Problems (1) Acute respiratory failure with hypoxia Code(s): J96.01 - ACUTE RESPIRATORY FAILURE WITH HYPOXIA (2) Hypoxia Code(s): R09.02 - HYPOXEMIA (3) Pleural effusion Code(s): J90 - PLEURAL EFFUSION, NOT ELSEWHERE CLASSIFIED (4) Cataract Code(s): H26.9 - UNSPECIFIED CATARACT (5) Diabetes mellitus, insulin dependent (IDDM), uncontrolled Code(s): E10.65 - TYPE 1 DIABETES MELLITUS WITH HYPERGLYCEMIA (6) HTN (hypertension) Code(s): I10 - ESSENTIAL (PRIMARY) HYPERTENSION Qualifiers: Hypertension type: unspecified Qualified Code(s): I10 - Essential (primary ) hypertension Assessment/Plan O2 as needed HD per Renal for volume removal Do not suspect respiratory tract infection so would monitor off ABX DC planning Dr Bell Problem List - Problems (1) Acute respiratory failure with hypoxia Code(s): J96.01 - ACUTE RESPIRATORY FAILURE WITH HYPOXIA (2) Hypoxia Code(s): R09.02 - HYPOXEMIA (3) Pleural effusion Code(s): J90 - PLEURAL EFFUSION, NOT ELSEWHERE CLASSIFIED (4) Cataract Code(s): H26.9 - UNSPECIFIED CATARACT (5) Diabetes mellitus, insulin dependent (IDDM), uncontrolled Code(s): E10.65 - TYPE 1 DIABETES MELLITUS WITH HYPERGLYCEMIA (6) HTN (hypertension) Code(s): I10 - ESSENTIAL (PRIMARY) HYPERTENSION Qualifiers: Hypertension type: unspecified Qualified Code(s): I10 - Essential (primary ) hypertension
--- NOTE | 2019-03-20 12:04 | PN ---
Progress Note (short form) - Note Progress Note: RENAL Awake and alert comfortable says he felt better after hd yesterday Last Vital Signs Temp Pulse Resp BP Pulse Ox 99 F 92 H 18 150/99 99 03/20/19 07:04 03/20/19 07:04 03/20/19 07:04 03/20/19 07:04 03/19/19 22:21 lungs crackles at left base are persistent cvs s1s2 rr abd soft ext no edema neuro a+ox3 CBC, BMP 03/19/19 08:20 03/19/19 08:20 Current Medications Generic Name Dose Route Start Last Admin Trade Name Freq PRN Reason Stop Dose Admin Heparin Sodium (Porcine) 5,000 unit 03/19/19 06:00 03/20/19 06:13 Heparin - SQ 5,000 unit TID ELOISA Administration Sodium Chloride 250 mls @ 3,000 mls/hr 03/19/19 11:25 Normal Saline - IV 03/20/19 11:25 PRN PRN Hypotension during Dialysis Insulin Aspart 1 vial 03/19/19 07:00 03/20/19 06:15 Novolog Vial Sliding Scale - SQ Not Given ACHS [facility] Protocol Losartan Potassium 50 mg 03/19/19 17:15 03/19/19 17:07 Cozaar - PO 50 mg DAILY ELOISA Administration Nifedipine 90 mg 03/20/19 04:20 03/20/19 04:42 Procardia Xl - PO 90 mg DAILY ELOISA Administration Ofloxacin 1 drop 03/19/19 10:00 03/19/19 21:52 Ocuflox 0.3% Eye Drops - OU Not Given QID [facility] Prednisolone Acetate 1 drop 03/19/19 10:00 03/19/19 21:53 Pred Forte 1% - OU Not Given BID [facility] Rosuvastatin Calcium 10 mg 03/19/19 22:00 03/19/19 21:48 Crestor - PO 10 mg HS ELOISA Administration Senna 2 tab 03/19/19 22:00 03/19/19 21:48 Senna - PO 2 tab HS ELOISA Administration Thiamine HCl 100 mg 03/19/19 10:00 03/19/19 09:33 Vitamin B1 - PO 100 mg DAILY ELOISA Administration Timolol Maleate 1 drop 03/19/19 10:00 03/19/19 21:53 Timoptic 0.5% OD Not Given BID ELOISA IMPRESSION ESRD HTN fluid overload anemia of ckd PLAN will order hd for tomorrow again can be discharged [facility]terwards will give NYLA MV
[2019-03-20] MEDS ORDERED: EPOETIN ALFA 3,000 UNIT/1 ML ML SQ ONE ×2 (12:05→12:15)
[2019-03-20] MEDS ORDERED: SODIUM CHLORIDE 250 ML IV PRN (12:05)
--- NOTE | 2019-03-20 12:39 | DS ---
Physical Exam: SUBJECTIVE: Patient seen and examined at bedside no acute events overnight- patient states that he is feeling better; he feels his breathing has improved- he is not experiencing as much dyspnea on exertion as when he initially came in ; he denies any CP/N/V fevers or chills OBJECTIVE: Vital Signs Period Temp Pulse Resp BP Sys/Morris Pulse Ox Last 24 Hr 98.8 F-99.1 F 84-92 16-19 117-186/51-116 99 PHYSICAL EXAM GENERAL: The patient is awake, alert, and fully oriented, in no acute distress. EYES: PEERLA; EOMI; no scleral icterus . NECK: no JVD; no lymphadenopthy LUNGS: CTA B/L; no rales, rhonchi or wheezing . HEART: Regular rate and rhythm, S1, S2 without murmur, rub or gallop. ABDOMEN: Soft, NT/ND +BS in all 4 quadrants EXTREMITIES: 2+ pulses, warm, well-perfused, no edema. PSYCH: Normal mood, normal affect. SKIN: Warm, dry, normal turgor, no rashes or lesions noted LABS Laboratory Results - last 24 hr 03/19/19 03/19/19 03/19/19 13:00 17:09 21:46 POC Glucometer 174 291 Blood Type A POSITIVE Antibody Screen Negative 03/20/19 03/20/19 06:14 11:59 POC Glucometer 131 225 Blood Type Antibody Screen CT: bilateral small to moderate pleural effusions with associated compressive atelectasis. HOSPITAL COURSE: Date of Admission:03/18/19 Pt is a 48 year old with PMHx of HTN, DM, ESRD -MWF, presenting for SOB with ambulation. Pt was sent from [facility] for sats in 70s on presentation after discharge from [facility] on day of admissions. , pt presented around 4.33pm today with sats in 80s, BP-72/36, glu -305, Temp- 97.4. Pt had been admitted in [facility] from 03/02/19 for ESRD with hyperkalemia and pulmonary edema with initiation of dialysis. patient was hypoxic and hypotensive - his repsiratory status improved with BIPAP initially and then nasal cannula. Chest CT was done which showed B/L small to moderate pleural effusions with compressive atelectasis. patient was seen by nephrology/cardiolgoy/pulmonology while in the hospital. he received HD and his dyspnea improved. He initially had a WBC of 11.4 and was given a dose of abx, however, no clinical signs of pneumonia or any other respiratory infection ane he was monitored off abx- his symptoms improved, his vitals were stable, and he was able to be discharged back to [facility] with pcp follow up, nephro follow up and pulmonary follow up. he was not discharged home with any new medications just to resume his M/W/ F dialysis schedule as his symptoms were likely caused to by his increasing fluid status Date of Discharge: 03/20/19 Minutes to complete discharge: 35 Discharge Summary Problems reviewed: Yes Reason For Visit: PLEURAL EFFUSION/HYPOXIA Current Active Problems Acute respiratory failure with hypoxia (Acute) Hypoxia (Acute) Pleural effusion (Acute) Condition: Stable - Instructions Diet, Activity, Other Instructions: You came to the emergency room with complaints of shortness of breath and low oxygen levels. We did imaging of your chest which showed some fluid around your lungs. You were evaluated by the lung, kidney, and heart specialists You also had dialysis while you were in the hospital which improved both your breathing and fluid status. Your symptoms improved and you were stable for discharge. Please resume all of your home medications Please resume your Thursday/Thursday/Thursday dialysis schedule Please follow up with Dr. Hutchison within one week Please follow up with Dr. Zepeda within one week Please follow up with the contact lens curve grinder Dr. Bell *if you begin to experience worsening shortness of breath, chest pains, increased fluid, nausea/vomiting, fevers please return to the emergency room immediately Referrals: Irineo Hutchison MD [Primary Care Provider] - 1 Week Antonio Bell MD [Staff Physician] - Paula Zepeda MD [Staff Physician] - 1 Week Disposition: [facility] - Home Medications Comprehensive Discharge Medication List: Ambulatory Orders Insulin Glargine,Hum.rec.anlog [Lantus] 100 unit SQ DAILY 03/18/19 Insulin Lispro [Humalog] 100 unit SQ QID 03/18/19 Ketorolac 0.5% Eye Drop 1 drop OP DAILY 03/18/19 Losartan Potassium 50 mg PO DAILY 03/18/19 Nifedipine [Procardia Xl] 90 mg PO DAILY 03/18/19 Ofloxacin 0.3% Ophth Soln [Ocuflox -] 1 drop OP DAILY 03/18/19 Polyethylene Glycol 3350 17 gm PO DAILY 03/18/19 Prednisolone Acetate/Pf [Prednisolone Acet 1% Eye Drop] 5 ml OP DAILY 03/18/19 Rosuvastatin [Crestor -] 10 mg PO DAILY 03/18/19 Sennosides [Senna] 8.6 mg PO DAILY 03/18/19 Thiamine HCl [B-1] 100 mg PO DAILY 03/18/19 Timolol 0.5% [Timoptic 0.5%] 1 drop OD DAILY 03/18/19 Problem List - Problems (1) Acute respiratory failure with hypoxia Code(s): J96.01 - ACUTE RESPIRATORY FAILURE WITH HYPOXIA (2) Pleural effusion Code(s): J90 - PLEURAL EFFUSION, NOT ELSEWHERE CLASSIFIED (3) Chronic renal insufficiency Code(s): N18.9 - CHRONIC KIDNEY DISEASE, UNSPECIFIED (4) Diabetes mellitus with hyperglycemia Code(s): E11.65 - TYPE 2 DIABETES MELLITUS WITH HYPERGLYCEMIA Qualifiers: Diabetes mellitus type: type 1 Qualified Code(s): E10.65 - Type 1 diabetes mellitus with hyperglycemia This patient is new to me today: Yes Date on this admission: 03/20/19 Emergency Visit: Yes ED Registration Date: 03/18/19 Care time: The patient presented to the Emergency Department on the above date and was hospitalized for further evaluation of their emergent condition. Critical Care patient: No - Discharge Referral Referred to [facility] Med P.C.: No ATTENDING PHYSICIAN STATEMENT I saw and evaluated the patient. I reviewed the resident's note and discussed the case with the resident. I agree with the resident's findings and plan as documented. SUBJECTIVE: OBJECTIVE: ASSESSMENT AND PLAN:
--- NOTE | 2019-03-20 12:40 | PN ---
Teaching Attending Note Name of Resident: Parisa Badillo ATTENDING PHYSICIAN STATEMENT I saw and evaluated the patient. I reviewed the resident's note and discussed the case with the resident. I agree with the resident's findings and plan as documented. SUBJECTIVE: Patient is feeling well, wants to go back to [facility] OBJECTIVE: Vital Signs Temperature 99 F 03/20/19 07:04 Pulse Rate 92 H 03/20/19 07:04 Respiratory Rate 18 03/20/19 07:04 Blood Pressure 150/99 03/20/19 07:04 O2 Sat by Pulse Oximetry (%) 99 03/19/19 22:21 GENERAL: The patient is awake, alert, and fully oriented, in no acute distress. having a dialysis HEAD: Normal with no signs of trauma. EYES: PERRL, extraocular movements intact, sclera anicteric, conjunctiva clear. . ENT: Ears normal, oropharynx clear without exudates, moist mucous membranes. NECK: Trachea midline, full range of motion, supple. LUNGS: Breath sounds equal, clear to auscultation bilaterally, no wheezes, no crackles, no accessory muscle use. HEART: mild tachycardia , S1, S2 without murmur, rub or gallop. ABDOMEN: Soft, nontender, nondistended, normoactive bowel sounds, no guarding, no rebound, no hepatosplenomegaly, no masses. EXTREMITIES: 2+ pulses, warm, well-perfused, no edema. NEUROLOGICAL: Cranial nerves II through XII grossly intact. Normal speech, gait not observed. PSYCH: Normal mood, normal affect. SKIN: Warm, dry, normal turgor, no rashes or lesions noted CBCD WBC 8.4 K/mm3 (4.0-10.0) 03/19/19 08:20 RBC 2.67 M/mm3 (4.00-5.60) L 03/19/19 08:20 Hgb 8.1 GM/dL (11.7-16.9) L 03/19/19 08:20 Hct 24.5 % (35.4-49) L 03/19/19 08:20 MCV 91.8 fl (80-96) 03/19/19 08:20 MCHC 33.0 g/dl (32.0-35.9) 03/19/19 08:20 RDW 13.3 % (11.9-15.9) 03/19/19 08:20 Plt Count 113 K/MM3 (134-434) L D 03/19/19 08:20 MPV 7.8 fl (7.5-11.1) 03/19/19 08:20 CMP Sodium 137 mmol/L (136-145) 03/19/19 08:20 Potassium 4.2 mmol/L (3.5-5.1) 03/19/19 08:20 Chloride 99 mmol/L (98-107) 03/19/19 08:20 Carbon Dioxide 31 mmol/L (21-32) 03/19/19 08:20 Anion Gap 7 MMOL/L (8-16) L 03/19/19 08:20 BUN 35.1 mg/dL (7-18) H 03/19/19 08:20 Creatinine 3.4 mg/dL (0.55-1.3) H 03/19/19 08:20 Random Glucose 166 mg/dL (74-106) H 03/19/19 08:20 Calcium 7.9 mg/dL (8.5-10.1) L 03/19/19 08:20 Total Bilirubin 0.1 mg/dL (0.2-1) L 03/19/19 08:20 AST 21 U/L (15-37) 03/19/19 08:20 ALT 52 U/L (13-61) 03/19/19 08:20 Alkaline Phosphatase 104 U/L (45-117) 03/19/19 08:20 Total Protein 6.3 g/dl (6.4-8.2) L 03/19/19 08:20 Albumin 2.5 g/dl (3.4-5.0) L 03/19/19 08:20 CARDIAC ENZYMES Creatine Kinase 193 U/L (26-308) 03/18/19 19:30 Troponin I 0.03 ng/ml (0.00-0.05) 03/19/19 00:53 Current Medications Generic Name Dose Route Start Last Admin Trade Name Freq PRN Reason Stop Dose Admin Epoetin Nolan 3,000 unit 03/20/19 12:15 Procrit - SQ 03/20/19 12:16 ONCE ONE Heparin Sodium (Porcine) 5,000 unit 03/19/19 06:00 03/20/19 06:13 Heparin - SQ 5,000 unit TID ELOISA Administration Sodium Chloride 250 mls @ 3,000 mls/hr 03/19/19 11:25 Normal Saline - IV 03/20/19 11:25 PRN PRN Hypotension during Dialysis Sodium Chloride 250 mls @ 3,000 mls/hr 03/20/19 12:05 Normal Saline - IV 03/21/19 12:05 PRN PRN Hypotension during Dialysis Insulin Aspart 1 vial 03/19/19 07:00 03/20/19 12:04 Novolog Vial Sliding Scale - SQ 4 units ACHS ELOISA Administration Protocol Losartan Potassium 50 mg 03/19/19 17:15 03/20/19 11:52 Cozaar - PO 50 mg DAILY ELOISA Administration Nifedipine 90 mg 03/20/19 04:20 03/20/19 11:54 Procardia Xl - PO 90 mg DAILY ELOISA Administration Ofloxacin 1 drop 03/19/19 10:00 03/20/19 11:54 Ocuflox 0.3% Eye Drops - OU 1 drop QID ELOISA Administration Prednisolone Acetate 1 drop 03/19/19 10:00 03/20/19 11:53 Pred Forte 1% - OU 1 drop BID ELOISA Administration Rosuvastatin Calcium 10 mg 03/19/19 22:00 03/19/19 21:48 Crestor - PO 10 mg HS ELOISA Administration Senna 2 tab 03/19/19 22:00 03/19/19 21:48 Senna - PO 2 tab HS ELOISA Administration Thiamine HCl 100 mg 03/19/19 10:00 03/20/19 11:55 Vitamin B1 - PO 100 mg DAILY ELOISA Administration Timolol Maleate 1 drop 03/19/19 10:00 03/20/19 11:55 Timoptic 0.5% OD 1 drop BID ELOISA Administration Home Medications Medication Instructions Recorded Insulin Glargine,Hum.rec.anlog 100 unit SQ DAILY 03/18/19 [Lantus] Insulin Lispro [Humalog] 100 unit SQ QID 03/18/19 Ketorolac 0.5% Eye Drop 1 drop OP DAILY 03/18/19 Losartan Potassium 50 mg PO DAILY 03/18/19 Nifedipine [Procardia Xl] 90 mg PO DAILY 03/18/19 Ofloxacin 0.3% Ophth Soln [Ocuflox 1 drop OP DAILY 03/18/19 -] Polyethylene Glycol 3350 17 gm PO DAILY 03/18/19 Prednisolone Acetate/Pf 5 ml OP DAILY 03/18/19 [Prednisolone Acet 1% Eye Drop] Rosuvastatin [Crestor -] 10 mg PO DAILY 03/18/19 Sennosides [Senna] 8.6 mg PO DAILY 03/18/19 Thiamine HCl [B-1] 100 mg PO DAILY 03/18/19 Timolol 0.5% [Timoptic 0.5%] 1 drop OD DAILY 03/18/19 CT: bilateral small to moderate pleural effusions with associated compressive atelectasis. ASSESSMENT AND PLAN: Patient is a 48yom with PMHx of HTN, DM, ESRD -MWF, was brought while he was getting transported to rehab, was found to have LOC for a few seconds. # ESRD on HD, MWF w ith pleural effusion needing HD , Dr Kingsley on the case, s/ p Dialysis, discussed with , patient can be discharged back. # bilateral small to moderate pleural effusions with associated compressive atelectasis. having HD , discussed with Dr Kingsley , comfortable in no acute distress. # Acute respiratory failure with hypoxia s/p BIPap, improved, no further need for Bipap, s/p dialysis # BL small to moderate pleural effusions with assoc.compressive atelectasis #HTN continue home meds. #DM continue home meds. #recent cataract sx: Cont eye drops DVT Px:Hep sq dc patient back to rehab.
[2019-03-20 14:19] VITALS: BP 153/94; PULSE 89; TEMP 98
[2019-03-21 21:07] LABS: HEP B CORE AB, TOT Negative (Negative)
== END 2019-03-20 14:36 | DRG 133 ==
LOC: JER 18:13 → JERBED 22:26 → J6S 03-19 02:22
PROVIDERS: ADMIT Internal Medicine; ATTEND Internal Medicine
PROC: 5A1D70Z Performance of Urinary Filtration, Intermittent, Less than 6 Hours Per Day (ICD-10-PCS; principal; 2019-03-19)
DX: J96.01 Acute respiratory failure with hypoxia (principal); J96.02 Acute respiratory failure with hypercapnia; I95.9 Hypotension, unspecified; I13.2 Hypertensive heart and chronic kidney disease with heart failure and with stage 5 chronic kidney disease, or end stage renal disease; I50.33 Acute on chronic diastolic (congestive) heart failure; E11.22 Type 2 diabetes mellitus with diabetic chronic kidney disease; N18.6 End stage renal disease; Z99.2 Dependence on renal dialysis; E66.9 Obesity, unspecified; Z68.26 Body mass index [BMI] 26.0-26.9, adult; J90 Pleural effusion, not elsewhere classified; E87.70 Fluid overload, unspecified; D63.1 Anemia in chronic kidney disease; R55 Syncope and collapse; E11.65 Type 2 diabetes mellitus with hyperglycemia; J98.11 Atelectasis; E88.09 Other disorders of plasma-protein metabolism, not elsewhere classified; R00.0 Tachycardia, unspecified; D72.829 Elevated white blood cell count, unspecified
CPT/HCPCS: 36415; 36600; 71250-TC; 80053; 82550; 82553; 82803; 82962; 83735; 83880; 84100; 84484; 85025; 86704; 86706; 86707; 86708; 86709; 86803; 86850; 86900; 86901; 87040; 87340; 93005; 93010; 94660; 99285-25; J0131; J1644